=== PATIENT | male | born 1965 | race African-American/Black ===

== ENCOUNTER 2020-06-17 17:20 | Inpatient (IN) | payer MEDICARE ==
--- NOTE | 2020-06-17 18:35 | RAD ---
FRONTAL RADIOGRAPH CHEST: 06/17/20 COMPARISON: 01/08/16. HISTORY: Altered mental status. FINDINGS: Stable prominence of the cardiac silhouette. Stable single lead transvenous AICD. Mild pulmonary vasc ular prominence. No focal consolidation or alveolar edema. IMPRESSION: No focal consolidation or alveolar edema. POS: CHRISTIAN
[2020-06-17 18:50] LABS: Bilirubin Negative (Negative); Blood, Urine Negative (Negative); Clarity Clear (Clear); Glucose, Urine (Dipstick) Greater than 1000 mg/dL (Negative); Ketone, Urine Negative (Negative); Leukocyte Negative Leu/uL (Negative); Nitrite Negative (Negative); Protein, Urine (Dipstick) 10 mg/dL (Neg-Trace); Specific Gravity, Urine 1.014 (1.002-1.036); Urobilinogen Normal mg/dL (Less than 2)
[2020-06-17 19:46] LABS: #Lymphocytes 0.9 thou/uL (1.20-3.40); #Monocytes 0.6 thou/uL (0.11-0.59); #Neutrophils 5.1 thou/uL (1.40-6.50); %Basophils 0.6 % (0.0-1.0); %Eosinophils 0.4 % (0.0-10.0); %Lymphocytes 13.8 % (21.0-51.0); %Monocytes 8.5 % (0.0-10.0); %Neutrophils 76.8 % (42.0-75.0); Hemoglobin 11.2 g/dL (14.0-18.0); Mean Corpuscular HGB CONC 31.1 g/dL (32.0-36.0); Mean Corpuscular Hemoglobin 26.7 pg (27.0-31.0); Mean Corpuscular Volume 85.9 fL (78.0-98.0); Platelet Count 150 thou/uL (130-400); RBC Distribution Width 14.3 % (11.5-14.5); Red Blood Cell (RBC) Count 4.22 mill/uL (4.70-6.10); White Blood Cell (WBC) Count 6.7 thou/uL (4.8-10.8)
[2020-06-17 20:06] LABS: ALT (SGPT) 16 U/L (8-55); AST (SGOT) 26 U/L (5-34); Albumin 3.6 g/dL (3.5-5.0); Alkaline Phosphatase 89 U/L (40-110); Anion Gap 18 mmol/L (10-20); BUN (Urea Nitrogen) 46 mg/dL (8.4-25.7); Bilirubin, Total 0.3 mg/dL (0.2-1.2); Calc. Creatinine Clearance 0 mL/min (70-130); Calcium 7.3 mg/dL (7.8-10.44); Carbon Dioxide 20 mmol/L (22-29); Chloride 101 mmol/L (98-107); Globulin 3.9 g/dL (2.4-3.5); Glucose 351 mg/dL (70-105); Potassium 3.7 mmol/L (3.5-5.1); Protein, Total 7.5 g/dL (6.0-8.3); Sodium 135 mmol/L (136-145)
--- NOTE | 2020-06-17 20:27 | CT ---
HEAD CT WITHOUT CONTRAST: 06/17/20 COMPARISON: None. HISTORY: Urinary retention and altered mental status. TECHNIQUE: Axial CT imaging at 5 mm intervals from vertex through skull base without contrast. FINDINGS: The visualized paranasal sinuses and mastoid air cells are well aerated. There is no displaced nupur rial fracture, intracranial hemorrhage, midline shift or mass effect. No ventricular enlargement. IMPRESSION: No acute findings. POS: CHRISTIAN
[2020-06-17] MEDS ORDERED: Ondansetron ODT 4 MG TAB PO PRN (21:58)
[2020-06-17] MEDS ORDERED: Calcium Carbonate 500 MG ChewTAB PO PRN (21:58)
[2020-06-17] MEDS ORDERED: Ondansetron PF 4 MG/2 ML Vial IVP PRN (21:58)
--- NOTE | 2020-06-17 22:14 | PDOC.HHP ---
Hospitalist HPI - History of Present Illness unable to void History of Present Illness: Case of an 55y/o male with a pmhx of cad, chf s/p aicd, hx of DM, blidness hld, and htn who comes to hospital due to urinary retention. patient is a very poor historian and family members were not present at the moment of my evaluation, patient states has some memories issues and is not sure why he was diego to the hospital. EMR records showed, apparently patient has been having episodes of altered mental state and has been having urinary retention for the past several months worse in the last few weeks. He denies any pain he denies any nausea or vomiting he is alert and oriented x4. He denies any body aches or chills but he does have a fever here of 102.5. AT the ED patient was evaluated and found on renal failure, a barrios cath was placed and 1.6L of urine were optain, his abdominal pain improved Hospitalist ROS - Review of Systems All other systems reviewed; all pertinent +/- noted in HPI/Subj Hospitalist History - Past Surgical History Other Surgical History: laser surgery L eye aicd placement - Family History Family History: reports: no pertinent history - Social History Smoking Status: Never smoker Alcohol: reports: None Drugs: reports: none Living Situation: With Family - Exam General Appearance: NAD, ill appearing Eye: PERRL, anicteric sclera ENT: normocephalic atraumatic, no oropharyngeal lesions Neck: supple, symmetric, no JVD Heart: RRR, no murmur, no gallops Respiratory: CTAB, no wheezes, no rales Gastrointestinal: soft, non-tender, non-distended Extremities: no cyanosis, no clubbing, no edema Skin: normal turgor, no lesions, no rashes Neurological: cranial nerve grossly intact, normal sensation to touch Musculoskeletal: normal tone, normal strength, no muscle wasting Psychiatric: normal affect, normal behavior Hospitalist Results - Labs Result Diagrams: 06/17/20 19:32 06/17/20 19:32 Lab results: WBC 6.7 thou/uL (4.8-10.8) 06/17/20 19:32 Hgb 11.2 g/dL (14.0-18.0) L 06/17/20 19:32 Hct 36.2 % (42.0-52.0) L 06/17/20 19:32 MCV 85.9 fL (78.0-98.0) 06/17/20 19:32 Plt Count 150 thou/uL (130-400) 06/17/20 19:32 Neutrophils % 76.8 % (42.0-75.0) H 06/17/20 19:32 Sodium 135 mmol/L (136-145) L 06/17/20 19:32 Potassium 3.7 mmol/L (3.5-5.1) 06/17/20 19:32 Chloride 101 mmol/L (98-107) 06/17/20 19:32 Carbon Dioxide 20 mmol/L (22-29) L 06/17/20 19:32 BUN 46 mg/dL (8.4-25.7) H 06/17/20 19:32 Creatinine 2.56 mg/dL (0.7-1.3) H 06/17/20 19:32 Glucose 351 mg/dL (70-105) H 06/17/20 19:32 Lactic Acid 1.2 mmol/L (0.5-2.2) 06/17/20 19:32 Calcium 7.3 mg/dL (7.8-10.44) L 06/17/20 19:32 Total Bilirubin 0.3 mg/dL (0.2-1.2) 06/17/20 19:32 AST 26 U/L (5-34) 06/17/20 19:32 ALT 16 U/L (8-55) 06/17/20 19:32 Alkaline Phosphatase 89 U/L (40-110) 06/17/20 19:32 Ammonia 19 umol/L (18-72) 06/17/20 19:29 Serum Total Protein 7.5 g/dL (6.0-8.3) 06/17/20 19:32 Albumin 3.6 g/dL (3.5-5.0) 06/17/20 19:32 Urine Ketones Negative mg/dL (Negative) 06/17/20 18:24 Urine Blood Negative (Negative) 06/17/20 18:24 Urine Nitrite Negative (Negative) 06/17/20 18:24 Ur Leukocyte Esterase Negative Tasia/uL (Negative) 06/17/20 18:24 Hospitalist H&P A/P - Problem (1) Renal failure Status: Acute (2) Hypertension Code(s): I10 - ESSENTIAL (PRIMARY) HYPERTENSION Status: Chronic (3) Obstructive uropathy Code(s): N13.9 - OBSTRUCTIVE AND REFLUX UROPATHY, UNSPECIFIED Status: Acute (4) HLD (hyperlipidemia) Code(s): E78.5 - HYPERLIPIDEMIA, UNSPECIFIED Status: Acute (5) Blind in both eyes Code(s): H54.0 - BLINDNESS, BOTH EYES * DO NOT USE * Status: Chronic (6) Diabetes mellitus type 2 in nonobese Code(s): E11.9 - TYPE 2 DIABETES MELLITUS WITHOUT COMPLICATIONS Status: Chronic (7) Fever Code(s): R50.9 - FEVER, UNSPECIFIED Status: Acute - Plan Plan: Case of an 55y/o male with the stated pmhx who presents with renal failure and f ever renal failure - likely secondary to obstructive uropathy - barrios was placed, 1.6L were removed - nephrology evaluation - urology consult - renal u/s - will start flomax - ivfs, f/u renal function fever - unclear etiology - u/a clean, cxr clean no leukocytosis - will test for covid 19 + flu - f/u blood cultures dm -long acting insuling hs - ss+acc htn / hld continue home meds
[2020-06-17] MEDS ORDERED: Dextrose 5% in Water 1,000 ML IV PRN (22:19)
[2020-06-18 00:46] LABS: SARS-CoV-2 NAA Rapid Test DETECTED (NotDetected)
[2020-06-18] MEDS: Sodium Chloride 0.9% 1,000 ML IV SCH ×3 (02:00→23:00)
[2020-06-18] MEDS: Acetaminophen 325 MG TAB PO PRN ×2 (02:00→16:17)
[2020-06-18 06:57] LABS: ALT (SGPT) 15 U/L (8-55); AST (SGOT) 28 U/L (5-34); Albumin 3.2 g/dL (3.5-5.0); Alkaline Phosphatase 80 U/L (40-110); Anion Gap 18 mmol/L (10-20); BUN (Urea Nitrogen) 43 mg/dL (8.4-25.7); Bilirubin, Total 0.3 mg/dL (0.2-1.2); Calc. Creatinine Clearance 44 mL/min (70-130); Calcium 6.9 mg/dL (7.8-10.44); Carbon Dioxide 17 mmol/L (22-29); Chloride 105 mmol/L (98-107); Globulin 3.6 g/dL (2.4-3.5); Glucose 209 mg/dL (70-105); Potassium 3.4 mmol/L (3.5-5.1); Protein, Total 6.8 g/dL (6.0-8.3); Sodium 137 mmol/L (136-145)
[2020-06-18 07:08] LABS: Band 15 % (5-11); Hemoglobin 10.5 g/dL (14.0-18.0); Hypochromia SLIGHT = 6-15 cells (100X) (0-5/hpf); Lymphocytes 10 % (21-51); MDiff Complete? YES; Mean Corpuscular HGB CONC 30.6 g/dL (32.0-36.0); Mean Corpuscular Hemoglobin 26.3 pg (27.0-31.0); Mean Platelet Volume 9.9 fL (7.4-10.4); Monocytes 10 % (0-10); Neutrophil 65 % (42-75); Platelet Count 142 thou/uL (130-400); Platelet Morphology Comment Appears Adequate; RBC Distribution Width 14.2 % (11.5-14.5); Red Blood Cell (RBC) Count 3.99 mill/uL (4.70-6.10); White Blood Cell (WBC) Count 6.7 thou/uL (4.8-10.8)
[2020-06-18] MEDS: Enoxaparin Sodium 30 MG/0.3 ML SYRINGE SC SCH (08:27)
[2020-06-18] MEDS: Atorvastatin Calcium 20 MG TAB PO SCH (08:28)
--- NOTE | 2020-06-18 08:38 | ULT ---
Renal sonogram HISTORY: Renal failure. FINDINGS: The right kidney is 10.7 cm length and the left 11.0 cm. Each has a normal sonographic appe arance. No hydronephrosis. Urinary bladder is decompressed. IMPRESSION : No abnormalities.
[2020-06-18] MEDS ORDERED: Gabapentin 300 MG CAP PO SCH ×2 (09:00→15:00)
--- NOTE | 2020-06-18 12:04 | PDOC.HOSPP ---
- Subjective Encounter Date: 06/18/20 Encounter Time: 12:00 Subjective: f/u WILMAR/obstructive uropathy s/p Castillo catheter placement. States no BM in several days. Overall feels ok. Some productive cough. - Objective Vital Signs & Weight: Vital Signs (12 hours) Temp Pulse Resp BP Pulse Ox 06/18/20 08:50 100.6 F H 74 16 111/69 100 06/18/20 04:00 101.1 F H 99 20 106/67 95 06/18/20 02:25 103.1 F H 105 H 20 133/66 100 06/18/20 02:00 103.1 F H Weight Weight 188 lb 6.632 oz I&O: 06/17/20 06/18/20 06/19/20 06:59 06:59 06:59 Intake Total 240 Balance 240 Result Diagrams: 06/18/20 05:57 06/18/20 05:57 Additional Labs: Accuchecks 06/18/20 06/18/20 11:43 03:53 POC Glucose 170 H 217 H Microbiology 06/17/20 19:42 Venous blood - Right Hand Blood Culture - Preliminary Specimen has been received and culture in progress. No Growth to date. 06/17/20 19:30 Venous blood - Left Hand Blood Culture - Preliminary Specimen has been received and culture in progress. No Growth to date. Laboratory Tests 06/17/20 06/17/20 06/17/20 19:29 19:32 19:32 Hgb Neutrophils % Neutrophils % (Manual) Band Neuts % (Manual) Sodium 135 L Potassium 3.7 BUN 46 H Creatinine 2.56 H Lactic Acid 1.2 Ammonia 19 Influenza A RNA INAAT Influenza B RNA INAAT SARS-CoV-2 Rap RNA(RT-PCR) 06/17/20 06/17/20 06/18/20 19:32 23:02 05:57 Hgb 11.2 L Neutrophils % 76.8 H Neutrophils % (Manual) 65 Band Neuts % (Manual) 15 H Sodium Potassium BUN Creatinine Lactic Acid Ammonia Influenza A RNA INAAT Not Detected Influenza B RNA INAAT Not Detected SARS-CoV-2 Rap RNA(RT-PCR) DETECTED A* Radiology Reviewed by me: Yes (PCXR - no acute infiltrates) Hospitalist ROS - Medication Medications: Active Medications Generic Name Dose Route Start Last Admin Trade Name Freq PRN Reason Stop Dose Admin Acetaminophen 650 mg 06/17/20 21:58 06/18/20 02:00 Acetaminophen 325 Mg Tab PO 650 mg Q4H PRN Administration Headache/Fever/Mild Pain (1-3) Atorvastatin Calcium 20 mg 06/18/20 09:00 06/18/20 08:28 Atorvastatin Calcium 20 Mg Tab PO 20 mg DAILY RUSTY Administration Enoxaparin Sodium 30 mg 06/18/20 09:00 06/18/20 08:27 Enoxaparin Sodium 30 Mg/0.3 Ml Syringe SC 30 mg 0900 RUSTY Administration Gabapentin 600 mg 06/18/20 09:00 06/18/20 08:27 Gabapentin 300 Mg Cap PO 600 mg TID RUSTY Administration Sodium Chloride 1,000 mls @ 80 mls/hr 06/17/20 22:00 06/18/20 10:26 Normal Saline 0.9% IV 1,000 mls .[id number] RUSTY Administration - Exam General Appearance: NAD, awake alert Eye: anicteric sclera ENT: normocephalic atraumatic, no oropharyngeal lesions Neck: supple, symmetric, no JVD, no thyromegaly, no lymphadenopathy Heart: RRR, no gallops, no rubs, normal peripheral pulses Heart - other findings: S1, S2 Respiratory: CTAB, no wheezes, no rales, no ronchi, normal chest expansion, no tachypnea Gastrointestinal: soft, non-tender, non-distended, normal bowel sounds, no palpable masses Extremities: no cyanosis, no clubbing, no edema Skin: normal turgor, no lesions Neurological: no new deficit, vision deficit Musculoskeletal: normal tone, normal strength, no muscle wasting Psychiatric: normal affect, A&O x 3 Hosp A/P (1) Obstructive uropathy Code(s): N13.9 - OBSTRUCTIVE AND REFLUX UROPATHY, UNSPECIFIED Status: Acute Plan: s/p Castillo catheter insertion, continue decompression, Flomax, Urology consultation (2) Acute renal failure Status: Acute Plan: Slow improvement with bladder decompression, avoid nephrotoxic meds and limit contrast, likely secondary to #1 (3) COVID-19 Code(s): U07.1 - COVID-19 Status: Acute Plan: Continue isolation protocol, add Vit C/Zinc/Dexamethasone/Rocephin (4) Nausea & vomiting Code(s): R11.2 - NAUSEA WITH VOMITING, UNSPECIFIED Status: Acute Plan: Improved and resolving (5) Diabetes mellitus type 2 in nonobese Code(s): E11.9 - TYPE 2 DIABETES MELLITUS WITHOUT COMPLICATIONS Status: Chronic Plan: ISS, resume home insulin regimen, ADA (6) Hypertension Code(s): I10 - ESSENTIAL (PRIMARY) HYPERTENSION Status: Chronic Qualifiers: Hypertension type: essential hypertension Qualified Code(s): I10 - Essential (primary) hypertension Plan: Resume home BP regimen - Plan continue antibiotics, outreach and education social worker, incentive spirometry, DVT proph w/SCDs Continue supportive mgmt Add Rocephin 2gm IV Daily Add Vit C/Zinc Continue Lovenox Urology/Nephrology consult pending Isolation protocol Bowel regimen with Miralax/Senokot-S AM lab: BMP, CBC
[2020-06-18] MEDS ORDERED: Acetaminophen/Codeine 30-300mg Tablet PO PRN (12:13)
[2020-06-18] MEDS: cefTRIAXone\\ROCEPHIN 2 GM in Sodium Chloride 0.9% 100 ML IVPB SCH (14:49)
[2020-06-18] MEDS: Dexamethasone 4 mg/ml Vial SLOW IVP SCH (14:50)
[2020-06-18] MEDS: Gabapentin 300 MG CAP PO SCH ×2 (14:52→21:07)
[2020-06-18] MEDS ORDERED: Ascorbic Acid 500 mg Chewable Tablet PO SCH (15:00)
[2020-06-18] MEDS ORDERED: Polyethylene Glycol 3350 17 GM Packet PO SCH (15:00)
--- NOTE | 2020-06-18 15:17 | CON ---
DATE OF CONSULTATION: 06/18/2020 REASON FOR CONSULTATION: Urinary retention. CHIEF COMPLAINT: Unable to urinate. HISTORY OF PRESENT ILLNESS: This is a 55-year-old male with blindness, cardiac disease, congestive heart failure, diabetes, hypertension, who presented to the hospital on June 17, reporting that he had been having more and more difficulty over the past several months urinating to the point where he had been unable to urinate for about 24 hours. He apparently was having worsening altered mental status as well. Castillo catheter was placed with 1.6 L drained. He was noted to be in acute renal failure, creatinine 2.4. He was also febrile to 102.5 upon admission. In speaking with the patient today, he feels much better than yesterday reporting that the Castillo catheter is not bothersome. He denies suprapubic pain, flank pain, nausea, vomiting, subjective fevers. He has never been to urologist before and has never required Castillo catheter. No history of bladder infections. REVIEW OF SYSTEMS: Twelve-point review of systems negative except as mentioned in my HPI. PAST SURGICAL HISTORY: Left eye laser surgery, AICD placement. FAMILY HISTORY: Reviewed. No history of prostate cancer. SOCIAL HISTORY: Nonsmoker. No substance abuse. Lives with his family. ALLERGIES: NO KNOWN DRUG ALLERGIES. PHYSICAL EXAMINATION: VITAL SIGNS: T-max 101.1, otherwise vitals stable. Urine output has not been recorded. GENERAL: No acute distress, resting comfortably in bed. HEENT: Head; normocephalic, atraumatic. NECK: Supple. Trachea midline. LUNGS: Unlabored breathing. Symmetric chest expansion. HEART: Regular rate and rhythm. ABDOMEN: Soft, nontender, nondistended. No flank tenderness. No suprapubic tenderness. Normal exam. Castillo catheter in good position draining clear urine. EXTREMITIES: Without clubbing, cyanosis, or edema. NEUROLOGIC: Alert and oriented x3. PSYCHIATRIC: Normal mood and affect. LABORATORY DATA: Reviewed. White count 6.7. Creatinine 2.24 today, down from 2.56 yesterday. Urinalysis greater than 1000 glucose, otherwise negative for infection. Renal ultrasound, I personally reviewed his renal ultrasound which shows decompression of the bladder and no hydronephrosis. ASSESSMENT AND PLAN: Urinary retention, enlarged prostate with lower urinary tract symptoms. Agree with continuing Flomax. He will need a Castillo catheter for at least 2 weeks. I will arrange followup in my office for void trial and anatomic evaluation. Job ID: [id number]
[2020-06-18] MEDS: HumaLOG 300 UNITS/3 ML VIAL SC PRN (16:17)
[2020-06-18] MEDS ORDERED: Sotalol HCl 80 MG TAB PO SCH (21:00)
[2020-06-18] MEDS ORDERED: Non-Formulary Item 1 EACH (Amitriptyline Hcl [Elavil] 50 MG Tab) PO SCH (21:00)
[2020-06-18] MEDS: Acetaminophen 650 MG Suppository PR PRN (21:07)
[2020-06-18] MEDS: Amitriptyline HCl 25 MG TAB PO SCH (21:07)
[2020-06-18] MEDS: Sotalol HCl 80 MG TAB PO SCH (21:07)
[2020-06-18] MEDS: Tamsulosin HCl 0.4 MG CAP PO SCH (21:07)
[2020-06-18] MEDS: Senokot S 8.6-50 MG TAB PO SCH (21:07)
[2020-06-18] MEDS: Insulin Glargine 40 UNITS in Pre-Filled Syringe 1 EACH SC SCH (21:32)
[2020-06-19 06:37] LABS: #Lymphocytes 0.4 thou/uL (1.20-3.40); #Monocytes 0.4 thou/uL (0.11-0.59); #Neutrophils 4.8 thou/uL (1.40-6.50); %Basophils 0.3 % (0.0-1.0); %Lymphocytes 6.8 % (21.0-51.0); %Monocytes 6.3 % (0.0-10.0); %Neutrophils 86.7 % (42.0-75.0); Hemoglobin 11.1 g/dL (14.0-18.0); Mean Corpuscular HGB CONC 31.2 g/dL (32.0-36.0); Mean Corpuscular Hemoglobin 27.2 pg (27.0-31.0); Mean Corpuscular Volume 87.1 fL (78.0-98.0); Mean Platelet Volume 9.8 fL (7.4-10.4); Platelet Count 144 thou/uL (130-400); RBC Distribution Width 14.3 % (11.5-14.5); Red Blood Cell (RBC) Count 4.09 mill/uL (4.70-6.10); White Blood Cell (WBC) Count 5.6 thou/uL (4.8-10.8)
[2020-06-19 07:00] LABS: Anion Gap 18 mmol/L (10-20); BUN (Urea Nitrogen) 37 mg/dL (8.4-25.7); Calc. Creatinine Clearance 51 mL/min (70-130); Calcium 6.9 mg/dL (7.8-10.44); Carbon Dioxide 18 mmol/L (22-29); Chloride 105 mmol/L (98-107); Glucose 166 mg/dL (70-105); Potassium 3.9 mmol/L (3.5-5.1); Sodium 137 mmol/L (136-145)
[2020-06-19] MEDS ORDERED: Atorvastatin Calcium 20 MG TAB PO SCH (09:00)
[2020-06-19] MEDS: Ascorbic Acid 500 mg Chewable Tablet PO SCH (09:00)
[2020-06-19] MEDS: Zinc Sulfate 220 MG CAP PO SCH (09:00)
[2020-06-19] MEDS: Gabapentin 300 MG CAP PO SCH ×3 (09:00→21:15)
[2020-06-19] MEDS: Sotalol HCl 80 MG TAB PO SCH ×2 (09:00→21:15)
[2020-06-19] MEDS: Senokot S 8.6-50 MG TAB PO SCH ×2 (09:01→21:14)
[2020-06-19] MEDS: Atorvastatin Calcium 20 MG TAB PO SCH ×2 (09:01→09:02)
[2020-06-19] MEDS: Polyethylene Glycol 3350 17 GM Packet PO SCH (09:01)
[2020-06-19] MEDS: Insulin Glargine 40 UNITS in Pre-Filled Syringe 1 EACH SC SCH ×2 (09:02→21:12)
[2020-06-19] MEDS: Enoxaparin Sodium 30 MG/0.3 ML SYRINGE SC SCH (09:04)
[2020-06-19] MEDS: Sodium Chloride 0.9% 1,000 ML IV SCH (11:01)
[2020-06-19] MEDS: HumaLOG 300 UNITS/3 ML VIAL SC PRN (12:14)
[2020-06-19] MEDS: cefTRIAXone\\ROCEPHIN 2 GM in Sodium Chloride 0.9% 100 ML IVPB SCH (13:46)
[2020-06-19] MEDS: Dexamethasone 4 mg/ml Vial SLOW IVP SCH (15:42)
--- NOTE | 2020-06-19 15:45 | PDOC.HOSPP ---
- Subjective Encounter Date: 06/19/20 Encounter Time: 14:05 Subjective: f/u for COVID 19+/WILMAR due urinary obstruction tx with Castillo catheter. Overall feeling better today. - Objective Vital Signs & Weight: Vital Signs (12 hours) Temp Pulse Resp BP BP BP Pulse Ox 06/19/20 11:45 96 F L 85 16 113/75 100 06/19/20 08:15 97.4 F L 82 16 111/73 100 06/19/20 05:00 97.3 F L 83 20 106/70 100 Weight Weight 188 lb 6.632 oz I&O: 06/18/20 06/19/20 06/20/20 06:59 06:59 06:59 Intake Total 720 Output Total 1000 Balance -280 Result Diagrams: 06/19/20 06:13 06/19/20 06:13 Additional Labs: Accuchecks 06/19/20 06/18/20 06/18/20 11:46 21:15 16:07 POC Glucose 211 H 158 H 225 H Microbiology 06/17/20 19:42 Venous blood - Right Hand Blood Culture - Preliminary Specimen has been received and culture in progress. No Growth to date. 06/17/20 19:30 Venous blood - Left Hand Blood Culture - Preliminary Specimen has been received and culture in progress. No Growth to date. Laboratory Tests 06/17/20 06/17/20 06/17/20 19:29 19:32 19:32 Hgb Neutrophils % Neutrophils % (Manual) Band Neuts % (Manual) Sodium 135 L Potassium 3.7 BUN 46 H Creatinine 2.56 H Lactic Acid 1.2 Ammonia 19 Influenza A RNA INAAT Influenza B RNA INAAT SARS-CoV-2 Rap RNA(RT-PCR) 06/17/20 06/17/20 06/18/20 19:32 23:02 05:57 Hgb 11.2 L Neutrophils % 76.8 H Neutrophils % (Manual) 65 Band Neuts % (Manual) 15 H Sodium Potassium BUN Creatinine Lactic Acid Ammonia Influenza A RNA INAAT Not Detected Influenza B RNA INAAT Not Detected SARS-CoV-2 Rap RNA(RT-PCR) DETECTED A* Hospitalist ROS - Medication Medications: Active Medications Generic Name Dose Route Start Last Admin Trade Name Freq PRN Reason Stop Dose Admin Acetaminophen 650 mg 06/17/20 21:58 12/31/20 16:17 Acetaminophen 325 Mg Tab PO 650 mg Q4H PRN Administration Headache/Fever/Mild Pain (1-3) Acetaminophen 650 mg 06/17/20 21:58 06/18/20 21:07 Acetaminophen [address] 650 mg Q4H PRN Administration Headache/Fever/Mild Pain (1-3) Amitriptyline HCl 50 mg 06/18/20 21:00 06/18/20 21:07 Amitriptyline Hcl 25 Mg Tab PO 50 mg HS RUSTY Administration Ascorbic Acid 1,000 mg 06/19/20 09:00 06/19/20 09:00 Ascorbic Acid 500 Mg Chewable Tablet PO 1,000 mg DAILY RUSTY Administration Atorvastatin Calcium 20 mg 06/19/20 09:00 06/19/20 09:01 Atorvastatin Calcium 20 Mg Tab PO 20 mg DAILY RUSTY Administration Dexamethasone 8 mg 06/18/20 15:00 06/19/20 15:42 Dexamethasone 4 Mg/Ml Vial SLOW IVP 8 mg 1500 RUSTY Administration Enoxaparin Sodium 30 mg 06/18/20 09:00 06/19/20 09:04 Enoxaparin Sodium 30 Mg/0.3 Ml Syringe SC 30 mg 0900 RUSTY Administration Gabapentin 300 mg 06/18/20 15:00 06/19/20 15:41 Gabapentin 300 Mg Cap PO 300 mg TID RUSTY Administration Sodium Chloride 1,000 mls @ 80 mls/hr 06/17/20 22:00 06/19/20 11:01 Normal Saline 0.9% IV Not Given .[id number] RUSTY Insulin Glargine 40 units/ 0.4 mls @ 0 mls/hr 06/18/20 21:00 06/18/20 21:32 Miscellaneous Medication SC 0.4 mls HS RUSTY Administration Insulin Glargine 40 units/ 0.4 mls @ 0 mls/hr 06/19/20 09:00 06/19/20 09:02 Miscellaneous Medication SC 0.4 mls QAM RUSTY Administration Ceftriaxone Sodium 2 gm/ 100 mls @ 200 mls/hr 06/18/20 14:00 06/19/20 13:46 Sodium Chloride IVPB 100 mls 1400 RUSTY Administration Insulin Human Lispro 0 units 06/17/20 22:19 06/19/20 12:14 Humalog 300 Units/3 Ml Vial SC 4 unit .MODERATE SLIDING SC PRN Administration Moderate Correctional Scale Polyethylene Glycol 17 gm 06/19/20 09:00 06/19/20 09:01 Polyethylene Glycol 3350 17 Gm Packet PO 17 gm DAILY RUSTY Administration Senna/Docusate Sodium 1 tab 06/18/20 21:00 06/19/20 09:01 Senokot S 8.6-50 Mg Tab PO 1 tab BID RUSTY Administration Sodium Chloride 10 ml 06/18/20 21:00 06/19/20 09:02 Flush - Normal Saline 10 Ml Syringe IVF 10 ml Q12HR RUSTY Administration Sotalol HCl 80 mg 06/18/20 21:00 06/19/20 09:00 Sotalol Hcl 80 Mg Tab PO 80 mg BID RUSTY Administration Tamsulosin HCl 0.4 mg 06/18/20 21:00 06/18/20 21:07 Tamsulosin Hcl 0.4 Mg Cap PO 0.4 mg HS RUSTY Administration Zinc Sulfate 220 mg 06/19/20 09:00 06/19/20 09:00 Zinc Sulfate 220 Mg Cap PO 220 mg DAILY RUSTY Administration - Exam General Appearance: NAD, awake alert Eye: anicteric sclera ENT: normocephalic atraumatic, no oropharyngeal lesions Neck: supple, symmetric, no JVD, no thyromegaly, no lymphadenopathy Heart: RRR, no gallops, no rubs, normal peripheral pulses Heart - other findings: S1, S2 Respiratory: CTAB, no wheezes, no rales, no ronchi, normal chest expansion, no tachypnea Gastrointestinal: soft, non-tender, non-distended, normal bowel sounds, no palpable masses Extremities: no cyanosis, no clubbing, no edema Skin: normal turgor, no lesions Neurological: cranial nerve grossly intact, no new deficit, vision deficit Musculoskeletal: normal tone, generalized weakness Psychiatric: normal affect, A&O x 3 Hosp A/P (1) Obstructive uropathy Code(s): N13.9 - OBSTRUCTIVE AND REFLUX UROPATHY, UNSPECIFIED Status: Acute Plan: s/p Castillo catheter decompression, likely will need catheter terminal computer operator, appreciate Urology assistance (2) Acute renal failure Status: Acute Plan: Improved with Castillo decompression, continue Castillo cather (3) COVID-19 Code(s): U07.1 - COVID-19 Status: Acute Plan: Continue gen pulmonary support/Dexamethasone/Rocephin/Vit C/Vit D/Lovenox (4) Nausea & vomiting Code(s): R11.2 - NAUSEA WITH VOMITING, UNSPECIFIED Status: Acute (5) Diabetes mellitus type 2 in nonobese Code(s): E11.9 - TYPE 2 DIABETES MELLITUS WITHOUT COMPLICATIONS Status: Chronic (6) Hypertension Code(s): I10 - ESSENTIAL (PRIMARY) HYPERTENSION Status: Chronic Qualifiers: Hypertension type: essential hypertension Qualified Code(s): I10 - Essential (primary) hypertension - Plan continue antibiotics, PT/OT, social sciences research scientist, incentive spirometry, out of bed/ambulate, DVT proph w/SCDs Continue supportive mgmt Continue Rocephin 2gm IV Daily Add Vit C/Zinc Continue Lovenox Urology/Nephrology consult appreciated Isolation protocol Bowel regimen with Miralax/Senokot-S AM lab: BMP, CBC
--- NOTE | 2020-06-19 16:55 | PRG ---
DATE OF SERVICE: 06/19/2020 OBJECTIVE: VITAL SIGNS: The patient noted with the following vital signs; afebrile, temperature 96, pulse 85, respiratory rate of 16, O2 saturation of 100% with blood pressure 113/75. HEENT: Unremarkable. CARDIOVASCULAR SYSTEM: First and second heart sounds were heard. RESPIRATORY SYSTEM: Clear to auscultation. DIGESTIVE SYSTEM: Revealed a benign abdomen. Positive bowel sounds. EXTREMITIES: No peripheral edema. SKIN: No new gross rash. LYMPHATICS: No peripheral lymphadenopathy. LABORATORY INVESTIGATION: Showed a hemoglobin of 11.1. Chemistry showed a creatinine down to 1.93 with BUN of 37, bicarb of 18, calcium of 6.9, with albumin of 3.2. IMPRESSION: 1. Acute kidney injury, seems to be improving. 2. Metabolic acidosis, partly due to the use of acetazolamide for glaucoma. 3. Hypocalcemia, query cause. 4. COVID infection. PLAN: 1. Discontinue current IV fluid. 2. Renally dose all medications and avoid potentially nephrotoxic agents. 3. Start this patient on vitamin D with calcium supplementation. 4. In order to be objective, we will go ahead and check the vitamin D level in this patient. 5. Further management will be dependent on the clinical course. Job ID: [id number]
[2020-06-19] MEDS ORDERED: AcetaZOLAMIDE 250 MG TAB PO SCH (17:00)
[2020-06-19] MEDS: Amitriptyline HCl 25 MG TAB PO SCH (21:12)
[2020-06-19] MEDS: Tamsulosin HCl 0.4 MG CAP PO SCH (21:12)
[2020-06-19] MEDS: Calcium Carbonate 500 MG ChewTAB PO SCH (21:15)
[2020-06-19] MEDS: AcetaZOLAMIDE 250 MG TAB PO SCH (21:16)
[2020-06-20 06:49] LABS: Anion Gap 16 mmol/L (10-20); BUN (Urea Nitrogen) 33 mg/dL (8.4-25.7); CRP (Inflammatory) 19.01 mg/dL (= or < 0.5); Calc. Creatinine Clearance 65 mL/min (70-130); Calcium 6.8 mg/dL (7.8-10.44); Carbon Dioxide 19 mmol/L (22-29); Chloride 108 mmol/L (98-107); Potassium 3.8 mmol/L (3.5-5.1); Sodium 139 mmol/L (136-145)
[2020-06-20 06:55] LABS: Glucose 52 mg/dL (70-105)
[2020-06-20] MEDS: Gabapentin 300 MG CAP PO SCH ×3 (09:31→21:39)
[2020-06-20] MEDS: Acetaminophen 325 MG TAB PO PRN (09:31)
[2020-06-20] MEDS: Zinc Sulfate 220 MG CAP PO SCH (09:32)
[2020-06-20] MEDS: Ascorbic Acid 500 mg Chewable Tablet PO SCH (09:32)
[2020-06-20] MEDS: Sotalol HCl 80 MG TAB PO SCH ×2 (09:32→21:40)
[2020-06-20] MEDS: Atorvastatin Calcium 20 MG TAB PO SCH (09:32)
[2020-06-20] MEDS: Calcium Carbonate 500 MG ChewTAB PO SCH ×2 (09:32→21:40)
[2020-06-20] MEDS: AcetaZOLAMIDE 250 MG TAB PO SCH ×4 (09:32→21:39)
[2020-06-20] MEDS: Senokot S 8.6-50 MG TAB PO SCH ×2 (09:33→21:40)
[2020-06-20] MEDS: Enoxaparin Sodium 30 MG/0.3 ML SYRINGE SC SCH (09:33)
[2020-06-20] MEDS: Polyethylene Glycol 3350 17 GM Packet PO SCH (09:33)
[2020-06-20] MEDS: Dextrose 50% Abboject 50 ML SYRINGE SLOW IVP PRN ×2 (12:24→17:28)
[2020-06-20] MEDS ORDERED: Acetaminophen 500 MG TAB PO SCH (12:45)
[2020-06-20] MEDS: cefTRIAXone\\ROCEPHIN 2 GM in Sodium Chloride 0.9% 100 ML IVPB SCH (13:12)
[2020-06-20] MEDS ORDERED: guaiFENesin ER 600 MG TAB PO SCH (14:30)
[2020-06-20] MEDS: Insulin Glargine 40 UNITS in Pre-Filled Syringe 1 EACH SC SCH (14:55)
[2020-06-20] MEDS: Dexamethasone 4 mg/ml Vial SLOW IVP SCH (15:12)
--- NOTE | 2020-06-20 17:15 | PDOC.HOSPP ---
- Subjective Subjective: Patient was seen examined at bedside. He is sitting up eating lunch. He had an episode of hypoglycemic with blood sugar of 52. Recheck it went up to 89. Renal function has improved, creatinines went down to 1.25. Patient also had a fevers of 101 today. - Objective Vital Signs & Weight: Vital Signs (12 hours) Temp Pulse Resp BP Pulse Ox 06/20/20 14:00 98.9 F 06/20/20 12:00 101.4 F H 06/20/20 08:00 92 L 06/20/20 07:48 101.2 F H 100 22 H 115/69 92 L Weight Weight 188 lb 6.632 oz I&O: 06/19/20 06/20/20 06/21/20 06:59 06:59 06:59 Intake Total 720 2100 200 Output Total 1000 1850 Balance -280 250 200 Result Diagrams: 06/19/20 06:13 06/20/20 05:51 Additional Labs: Accuchecks 06/20/20 06/20/20 06/19/20 13:22 06:22 21:03 POC Glucose 91 89 132 H Hospitalist ROS - Medication Medications: Active Medications Generic Name Dose Route Start Last Admin Trade Name Freq PRN Reason Stop Dose Admin Acetaminophen 650 mg 06/17/20 21:58 06/20/20 09:31 Acetaminophen 325 Mg Tab PO 650 mg Q4H PRN Administration Headache/Fever/Mild Pain (1-3) Acetaminophen 650 mg 06/17/20 21:58 06/18/20 21:07 Acetaminophen 650 Mg Suppository [place] 650 mg Q4H PRN Administration Headache/Fever/Mild Pain (1-3) Acetaminophen/Codeine Phosphate 1 tab 06/18/20 12:13 06/19/20 18:28 Acetaminophen/Codeine 30-300mg Tablet PO 1 tab BID PRN Administration Pain Acetazolamide 250 mg 06/19/20 21:00 06/20/20 13:16 Acetazolamide 250 Mg Tab PO 250 mg QID RUSTY Administration Amitriptyline HCl 50 mg 06/18/20 21:00 06/19/20 21:12 Amitriptyline Hcl 25 Mg Tab PO 50 mg HS RUSTY Administration Ascorbic Acid 1,000 mg 06/19/20 09:00 06/20/20 09:32 Ascorbic Acid 500 Mg Chewable Tablet PO 1,000 mg DAILY RUSTY Administration Atorvastatin Calcium 20 mg 06/19/20 09:00 06/20/20 09:32 Atorvastatin Calcium 20 Mg Tab PO 20 mg DAILY RUSTY Administration Calcium Carbonate 1,000 mg 06/19/20 21:00 06/20/20 09:32 Calcium Carbonate 500 Mg Chewtab PO 1,000 mg BID RUSTY Administration Dexamethasone 8 mg 06/18/20 15:00 06/20/20 15:12 Dexamethasone 4 Mg/Ml Vial SLOW IVP 8 mg 1500 RUSTY Administration Dextrose/Water 25 gm 06/17/20 22:19 06/20/20 12:24 Dextrose 50% Abboject 50 Ml Syringe SLOW IVP 25 gm PRN PRN Administration Hypoglycemia Enoxaparin Sodium 30 mg 06/18/20 09:00 06/20/20 09:33 Enoxaparin Sodium 30 Mg/0.3 Ml Syringe SC 30 mg 0900 RUSTY Administration Gabapentin 300 mg 06/18/20 15:00 06/20/20 15:12 Gabapentin 300 Mg Cap PO 300 mg TID RUSTY Administration Insulin Glargine 40 units/ 0.4 mls @ 0 mls/hr 06/18/20 21:00 06/19/20 21:12 Miscellaneous Medication SC 0.4 mls HS RUSTY Administration Insulin Glargine 40 units/ 0.4 mls @ 0 mls/hr 06/19/20 09:00 06/20/20 14:55 Miscellaneous Medication SC Not Given QAM RUSTY Ceftriaxone Sodium 2 gm/ 100 mls @ 200 mls/hr 06/18/20 14:00 06/20/20 13:12 Sodium Chloride IVPB 100 mls 1400 RUSTY Administration Insulin Human Lispro 0 units 06/17/20 22:19 06/19/20 12:14 Humalog 300 Units/3 Ml Vial SC 4 unit .MODERATE SLIDING SC PRN Administration Moderate Correctional Scale Polyethylene Glycol 17 gm 06/19/20 09:00 06/20/20 09:33 Polyethylene Glycol 3350 17 Gm Packet PO 17 gm DAILY RUSTY Administration Senna/Docusate Sodium 1 tab 06/18/20 21:00 06/20/20 09:33 Senokot S 8.6-50 Mg Tab PO 1 tab BID RUSTY Administration Sodium Chloride 10 ml 06/18/20 21:00 06/20/20 09:34 Flush - Normal Saline 10 Ml Syringe IVF 10 ml Q12HR RUSTY Administration Sotalol HCl 80 mg 06/18/20 21:00 06/20/20 09:32 Sotalol Hcl 80 Mg Tab PO 80 mg BID RUSTY Administration Tamsulosin HCl 0.4 mg 06/18/20 21:00 06/19/20 21:12 Tamsulosin Hcl 0.4 Mg Cap PO 0.4 mg HS RUSTY Administration Zinc Sulfate 220 mg 06/19/20 09:00 06/20/20 09:32 Zinc Sulfate 220 Mg Cap PO 220 mg DAILY RUSTY Administration - Exam General Appearance: NAD Eye: PERRL ENT: normocephalic atraumatic Neck: supple Heart: RRR Respiratory: rhonchi Gastrointestinal: soft Extremities: no cyanosis Skin: normal turgor Neurological: cranial nerve grossly intact Musculoskeletal: normal tone Hosp A/P - Plan Patient is a 55 years old -[place] gentleman who has significant past medical history of CAD, CHF with status post AICD, diabetes complicated with legally blind, dyslipidemia, hypertension, who presented to ED with urinary retention, and fever. Acute hypoxic respiratory failures due to COVID-19 pneumonia --Continue Decadron, Vit C/D/Zince. Wean O2 as gordo. Not a candidate for Remdesivir d/t renal function COVID-19 PNA --mgt as above. WILMAR d/t obstructive uropathy --s/p Barrios placement. Cr trending down. Appreciate urology/nephrology Obstructive uropathy d/t BPH --keep barrios in place for 2 weeks, follow up with urology --cont Flomax DM 2 --with hypoglycemia in setting of WILMAR --hold Lantus, cont ISS for now HTN, essential --BP stable. Losartan on hold d/t renal function Dyslipidemia --cont statin therapy
--- NOTE | 2020-06-20 19:59 | PRG ---
DATE OF SERVICE: 06/20/2020 OBJECTIVE: VITAL SIGNS: The patient noted to be spiking fever today with temperature 101.4, pulse of 90s to 100, respiratory rate 22, blood pressure 116/69. HEENT: Unremarkable. CARDIOVASCULAR SYSTEM: First and second heart sounds were heard. RESPIRATORY SYSTEM: Clear to auscultation. DIGESTIVE SYSTEM: Revealed a benign abdomen. EXTREMITIES: No peripheral edema. SKIN: No new gross rash. LYMPHATICS: No peripheral lymphadenopathy. IMPRESSION: 1. Acute kidney injury, which seems to be improving more or less back to baseline. 2. Metabolic acidosis, much improved. 3. Hypocalcemia, query cause. 4. COVID infection. PLAN: 1. Continue current renal supportive measures. 2. Renally dose all medications. 3. Further management to be dependent on the clinical course. Job ID: [id number]
[2020-06-20] MEDS: guaiFENesin ER 600 MG TAB PO SCH (21:40)
[2020-06-20] MEDS: Amitriptyline HCl 25 MG TAB PO SCH (21:40)
[2020-06-20] MEDS: Tamsulosin HCl 0.4 MG CAP PO SCH (21:40)
[2020-06-21] MEDS: HumaLOG 300 UNITS/3 ML VIAL SC PRN (05:28)
[2020-06-21 07:20] LABS: #Lymphocytes 0.5 thou/uL (1.20-3.40); #Monocytes 0.4 thou/uL (0.11-0.59); #Neutrophils 6.7 thou/uL (1.40-6.50); %Monocytes 5.8 % (0.0-10.0); %Neutrophils 88.1 % (42.0-75.0); Hemoglobin 10.9 g/dL (14.0-18.0); Mean Corpuscular HGB CONC 30.9 g/dL (32.0-36.0); Mean Corpuscular Hemoglobin 26.6 pg (27.0-31.0); Mean Corpuscular Volume 85.9 fL (78.0-98.0); Mean Platelet Volume 9.9 fL (7.4-10.4); Platelet Count 187 thou/uL (130-400); RBC Distribution Width 14.6 % (11.5-14.5); White Blood Cell (WBC) Count 7.6 thou/uL (4.8-10.8)
[2020-06-21 07:30] LABS: Anion Gap 14 mmol/L (10-20); BUN (Urea Nitrogen) 36 mg/dL (8.4-25.7); CRP (Inflammatory) 23.85 mg/dL (= or < 0.5); Calc. Creatinine Clearance 65 mL/min (70-130); Calcium 6.8 mg/dL (7.8-10.44); Carbon Dioxide 18 mmol/L (22-29); Chloride 108 mmol/L (98-107); Potassium 3.4 mmol/L (3.5-5.1); Sodium 137 mmol/L (136-145)
[2020-06-21 07:40] LABS: Glucose 43 mg/dL (70-105)
[2020-06-21] MEDS: Dextrose 5 % And 0.9 % NaCl 1,000 ML IV SCH ×2 (08:10→21:51)
[2020-06-21] MEDS: Dextrose 50% Abboject 50 ML SYRINGE SLOW IVP PRN (08:10)
[2020-06-21] MEDS: Gabapentin 300 MG CAP PO SCH ×3 (09:52→21:49)
[2020-06-21] MEDS: Senokot S 8.6-50 MG TAB PO SCH ×2 (09:53→21:48)
[2020-06-21] MEDS: Calcium Carbonate 500 MG ChewTAB PO SCH ×2 (09:53→21:49)
[2020-06-21] MEDS: guaiFENesin ER 600 MG TAB PO SCH ×2 (09:53→21:50)
[2020-06-21] MEDS: Zinc Sulfate 220 MG CAP PO SCH (09:53)
[2020-06-21] MEDS: Ascorbic Acid 500 mg Chewable Tablet PO SCH (09:53)
[2020-06-21] MEDS: Atorvastatin Calcium 20 MG TAB PO SCH (09:53)
[2020-06-21] MEDS: Sotalol HCl 80 MG TAB PO SCH ×2 (09:53→21:47)
[2020-06-21] MEDS: AcetaZOLAMIDE 250 MG TAB PO SCH ×4 (09:53→21:47)
[2020-06-21] MEDS: Enoxaparin Sodium 30 MG/0.3 ML SYRINGE SC SCH (09:54)
[2020-06-21] MEDS: Polyethylene Glycol 3350 17 GM Packet PO SCH (09:54)
[2020-06-21 12:02] LABS: Base Excess (BEa) -5.7 mEq/L (-2.0 to +3.0); CO2 Tension 34.5 mmHg (35.0-45.0); Calcium, Ionized (arterial) 0.94 mmol/L (1.12-1.30); Carboxyhemoglobin (COHb) 0.7 gm% (0.0-3.0); Hemoglobin (Hb) 12.3 g/dL (14.0-18.0); pH, Arterial 7.36 (7.35-7.45)
[2020-06-21 12:07] LABS: O2 Tension (PaO2), arterial 56.4 mmHg (80.0-100.0); Puncture Site RRA
[2020-06-21 12:08] LABS: ALV-art Gradient 613.475 mmHg (0-20)
[2020-06-21] MEDS: cefTRIAXone\\ROCEPHIN 2 GM in Sodium Chloride 0.9% 100 ML IVPB SCH (14:02)
[2020-06-21] MEDS: Dexamethasone 4 mg/ml Vial SLOW IVP SCH ×2 (15:58→21:51)
--- NOTE | 2020-06-21 16:54 | PDOC.HOSPP ---
- Subjective Subjective: Patient was seen examined at bedside. Patient is getting more hypoxic today despite that he is asymptomatic. Additionally, he is still having hypoglycemia. He was started on D5. Patient has not been eating much. ABG reviewed - Objective Vital Signs & Weight: Vital Signs (12 hours) Temp Pulse Resp BP Pulse Ox 06/21/20 14:00 112 H 91 L 06/21/20 12:00 93 L 06/21/20 08:22 98.0 F 84 18 112/73 94 L 06/21/20 08:00 94 L Weight Weight 188 lb 6.632 oz I&O: 06/20/20 06/21/20 06/22/20 06:59 06:59 06:59 Intake Total 2100 770 200 Output Total 1850 800 Balance 250 -30 200 Result Diagrams: 06/21/20 06:59 06/21/20 06:59 Additional Labs: Accuchecks 06/21/20 06/21/20 06/21/20 16:00 11:26 09:12 POC Glucose 97 95 99 06/21/20 05:27 POC Glucose 211 H Hospitalist ROS - Medication Medications: Active Medications Generic Name Dose Route Start Last Admin Trade Name Freq PRN Reason Stop Dose Admin Acetaminophen 650 mg 06/17/20 21:58 06/20/20 09:31 Acetaminophen 325 Mg Tab PO 650 mg Q4H PRN Administration Headache/Fever/Mild Pain (1-3) Acetaminophen 650 mg 06/17/20 21:58 06/18/20 21:07 Acetaminophen 650 Mg Suppository [place] 650 mg Q4H PRN Administration Headache/Fever/Mild Pain (1-3) Acetaminophen/Codeine Phosphate 1 tab 06/18/20 12:13 06/19/20 18:28 Acetaminophen/Codeine 30-300mg Tablet PO 1 tab BID PRN Administration Pain Acetazolamide 250 mg 06/19/20 21:00 06/21/20 12:56 Acetazolamide 250 Mg Tab PO 250 mg QID RUSTY Administration Amitriptyline HCl 50 mg 06/18/20 21:00 06/20/20 21:40 Amitriptyline Hcl 25 Mg Tab PO 50 mg HS RUSTY Administration Ascorbic Acid 1,000 mg 06/19/20 09:00 06/21/20 09:53 Ascorbic Acid 500 Mg Chewable Tablet PO 1,000 mg DAILY RUSTY Administration Atorvastatin Calcium 20 mg 06/19/20 09:00 06/21/20 09:53 Atorvastatin Calcium 20 Mg Tab PO 20 mg DAILY RUSTY Administration Calcium Carbonate 1,000 mg 06/19/20 21:00 06/21/20 09:53 Calcium Carbonate 500 Mg Chewtab PO 1,000 mg BID RUSTY Administration Dexamethasone 8 mg 06/18/20 15:00 06/21/20 15:58 Dexamethasone 4 Mg/Ml Vial SLOW IVP 8 mg 1500 RUSTY Administration Dextrose/Water 25 gm 06/17/20 22:19 06/21/20 08:10 Dextrose 50% Abboject 50 Ml Syringe SLOW IVP 25 gm PRN PRN Administration Hypoglycemia Enoxaparin Sodium 30 mg 06/18/20 09:00 06/21/20 09:54 Enoxaparin Sodium 30 Mg/0.3 Ml Syringe SC 30 mg 0900 RUSTY Administration Gabapentin 300 mg 06/18/20 15:00 06/21/20 15:57 Gabapentin 300 Mg Cap PO 300 mg TID RUSTY Administration Guaifenesin 600 mg 06/20/20 21:00 06/21/20 09:53 Guaifenesin Er 600 Mg Tab PO 600 mg Q12HR RUSTY Administration Insulin Glargine 40 units/ 0.4 mls @ 0 mls/hr 06/18/20 21:00 06/19/20 21:12 Miscellaneous Medication SC 0.4 mls HS RUSTY Administration Insulin Glargine 40 units/ 0.4 mls @ 0 mls/hr 06/19/20 09:00 06/20/20 14:55 Miscellaneous Medication SC Not Given QAM RUSTY Ceftriaxone Sodium 2 gm/ 100 mls @ 200 mls/hr 06/18/20 14:00 06/21/20 14:02 Sodium Chloride IVPB 100 mls 1400 RUSTY Administration Dextrose/Sodium Chloride 1,000 mls @ 75 mls/hr 06/21/20 08:00 06/21/20 08:10 D5 0.9% Ns IV 1,000 mls .[id number] RUSTY Administration Insulin Human Lispro 0 units 06/17/20 22:19 06/21/20 05:28 Humalog 300 Units/3 Ml Vial SC 4 unit .MODERATE SLIDING SC PRN Administration Moderate Correctional Scale Polyethylene Glycol 17 gm 06/19/20 09:00 06/21/20 09:54 Polyethylene Glycol 3350 17 Gm Packet PO Not Given DAILY RUSTY Senna/Docusate Sodium 1 tab 06/18/20 21:00 06/21/20 09:53 Senokot S 8.6-50 Mg Tab PO 1 tab BID RUSTY Administration Sodium Chloride 10 ml 06/18/20 21:00 06/21/20 09:54 Flush - Normal Saline 10 Ml Syringe IVF 10 ml Q12HR RUSTY Administration Sotalol HCl 80 mg 06/18/20 21:00 06/21/20 09:53 Sotalol Hcl 80 Mg Tab PO 80 mg BID RUSTY Administration Tamsulosin HCl 0.4 mg 06/18/20 21:00 06/20/20 21:40 Tamsulosin Hcl 0.4 Mg Cap PO 0.4 mg HS RUSTY Administration Zinc Sulfate 220 mg 06/19/20 09:00 06/21/20 09:53 Zinc Sulfate 220 Mg Cap PO 220 mg DAILY RUSTY Administration - Exam General Appearance: NAD Eye: PERRL ENT: normocephalic atraumatic Neck: supple Heart: RRR Respiratory: rhonchi Gastrointestinal: soft, non-tender Extremities: no cyanosis Skin: normal turgor Neurological: cranial nerve grossly intact Musculoskeletal: normal tone Psychiatric: normal affect, normal behavior, A&O x 3 Hosp A/P - Plan Patient is a 55 years old -[place] gentleman who has significant past medical history of CAD, CHF with status post AICD, diabetes complicated with legally blind, dyslipidemia, hypertension, who presented to ED with urinary retention, and fever. Acute hypoxic respiratory failures due to COVID-19 pneumonia --CRP still quite high, incr Decadron to BID, Vit C/D/Zinc. Wean O2 as gordo. --convalescent plasma. renal function has improved, d/w ID, Ok to start remdesivir COVID-19 PNA --mgt as above. Hypoglycemia - d/t Lantus in setting of WILMAR and poor PO intake --Lantus on hold. start D5 d/t persistent hypoglycemia. WILMAR d/t obstructive uropathy --s/p Barrios placement. Cr trending down. Appreciate urology/nephrology Obstructive uropathy d/t BPH --keep barrios in place for 2 weeks, follow up with urology --cont Flomax DM 2 --with hypoglycemia in setting of WILMAR --hold Lantus, cont ISS for now HTN, essential --BP stable. Losartan on hold d/t renal function Dyslipidemia --cont statin therapy
[2020-06-21] MEDS ORDERED: REMDESIVIR (EUA) 200 MG in Sodium Chloride 0.9% 250 ML 210 ML IV SCH (18:00)
[2020-06-21] MEDS: Tamsulosin HCl 0.4 MG CAP PO SCH (21:49)
[2020-06-21] MEDS: Amitriptyline HCl 25 MG TAB PO SCH (21:50)
--- NOTE | 2020-06-21 22:12 | PRG ---
DATE OF SERVICE: 06/21/2020 SUBJECTIVE: The patient is seen, noted with the following vital signs. OBJECTIVE: VITAL SIGNS: Afebrile, temperature 98.7, pulse 84, respiratory rate of 19, O2 saturation of 93%, blood pressure 116/71. HEENT: Unremarkable. CARDIOVASCULAR SYSTEM: First and second heart sounds are heard. RESPIRATORY SYSTEM: Clear to auscultation. DIGESTIVE SYSTEM: Revealed a benign abdomen. Positive bowel sounds. EXTREMITIES: No peripheral edema. SKIN: No new gross rash. LYMPHATICS: No peripheral lymphadenopathy. LABORATORY INVESTIGATION: Showed a potassium of 3.4, bicarb of 18, BUN of 36, and creatinine of 1.52. IMPRESSION: 1. Acute on chronic kidney disease, seems to be improving . 2. Metabolic acidosis. 3. COVID pneumonitis. 4. Mild hypokalemia. PLAN: 1. Replete potassium. 2. Continue current renal supportive measures. 3. Further management to be dependent on the clinical course. We will likely recommend discontinuation of IV fluids . Job ID: [id number]
--- NOTE | 2020-06-22 03:13 | PDOC.EVN ---
Event Note - Event Note Event Note: Received call from nursing that patient refused his convalescent plasma but did take the Remdesevir this evening.
[2020-06-22 07:05] LABS: Mean Corpuscular Volume 86.6 fL (78.0-98.0); Mean Platelet Volume 9.5 fL (7.4-10.4); Platelet Count 238 thou/uL (130-400); RBC Distribution Width 14.5 % (11.5-14.5); Red Blood Cell (RBC) Count 4.23 mill/uL (4.70-6.10); White Blood Cell (WBC) Count 7.8 thou/uL (4.8-10.8)
[2020-06-22 07:22] LABS: ALT (SGPT) 22 U/L (8-55); AST (SGOT) 71 U/L (5-34); Albumin 2.8 g/dL (3.5-5.0); Alkaline Phosphatase 98 U/L (40-110); Anion Gap 15 mmol/L (10-20); BUN (Urea Nitrogen) 31 mg/dL (8.4-25.7); Bilirubin, Total 0.2 mg/dL (0.2-1.2); CRP (Inflammatory) 21.38 mg/dL (= or < 0.5); Calc. Creatinine Clearance 68 mL/min (70-130); Calcium 6.5 mg/dL (7.8-10.44); Carbon Dioxide 20 mmol/L (22-29); Chloride 110 mmol/L (98-107); Globulin 3.7 g/dL (2.4-3.5); Glucose 152 mg/dL (70-105); Potassium 3.9 mmol/L (3.5-5.1); Protein, Total 6.5 g/dL (6.0-8.3); Sodium 141 mmol/L (136-145)
--- NOTE | 2020-06-22 07:24 | RAD ---
EXAM: CHEST ONE VIEW HISTORY: Worsening respiratory failure. Covid positive. COMPARISON: 06/17/2020 FINDINGS: Single lead left subclavian AICD device remains in place. Cardiac silhouette is magnified by projecti on but stable in size. There are increased interstitial and patchy parenchymal airspace opacities within the lungs bilaterally likely compatible with Covid pneumonia given patient's history. No obvio us pleural effusion is seen. No other interval change IMPRESSION: Covid pneumonia.
[2020-06-22 07:26] LABS: #Basophils 0.1 thou/uL (0.0-0.2); #Lymphocytes 0.5 thou/uL (1.20-3.40); #Monocytes 0.4 thou/uL (0.11-0.59); #Neutrophils 6.8 thou/uL (1.40-6.50); %Basophils 0.7 % (0.0-1.0); %Eosinophils 0.1 % (0.0-10.0); %Lymphocytes 6.8 % (21.0-51.0); %Monocytes 5.1 % (0.0-10.0); %Neutrophils 87.4 % (42.0-75.0); Crenated RBC SLIGHT = 1-5 cells (100X) (None Seen); MDiff Complete? YES; Platelet Morphology Comment Appears Adequate
[2020-06-22] MEDS: Ascorbic Acid 500 mg Chewable Tablet PO SCH (08:37)
[2020-06-22] MEDS: Gabapentin 300 MG CAP PO SCH ×3 (08:38→21:45)
[2020-06-22] MEDS: Calcium Carbonate 500 MG ChewTAB PO SCH ×2 (08:38→21:45)
[2020-06-22] MEDS: Acetaminophen 325 MG TAB PO PRN (08:38)
[2020-06-22] MEDS: Zinc Sulfate 220 MG CAP PO SCH (08:39)
[2020-06-22] MEDS: Dexamethasone 4 mg/ml Vial SLOW IVP SCH ×2 (08:39→21:46)
[2020-06-22] MEDS: Senokot S 8.6-50 MG TAB PO SCH ×2 (08:39→21:45)
[2020-06-22] MEDS: Atorvastatin Calcium 20 MG TAB PO SCH (08:39)
[2020-06-22] MEDS: guaiFENesin ER 600 MG TAB PO SCH ×2 (08:39→21:45)
[2020-06-22] MEDS: Polyethylene Glycol 3350 17 GM Packet PO SCH (08:40)
[2020-06-22] MEDS: AcetaZOLAMIDE 250 MG TAB PO SCH ×4 (08:44→21:44)
[2020-06-22] MEDS: Sotalol HCl 80 MG TAB PO SCH ×2 (08:44→21:46)
[2020-06-22] MEDS: Enoxaparin Sodium 30 MG/0.3 ML SYRINGE SC SCH (08:44)
[2020-06-22] MEDS: Dextrose 5 % And 0.9 % NaCl 1,000 ML IV SCH (09:05)
[2020-06-22] MEDS: HumaLOG 300 UNITS/3 ML VIAL SC PRN ×2 (11:23→16:37)
[2020-06-22] MEDS: cefTRIAXone\\ROCEPHIN 2 GM in Sodium Chloride 0.9% 100 ML IVPB SCH (12:38)
--- NOTE | 2020-06-22 17:27 | PDOC.HOSPP ---
- Subjective Subjective: pt declined convalescent plasma. no fever. stable on high [place]. BG stable. appetite still low. - Objective Vital Signs & Weight: Vital Signs (12 hours) Temp Pulse Resp BP BP BP Pulse Ox 06/22/20 17:02 97.4 F L 83 20 108/71 95 06/22/20 11:56 97.7 F 84 20 130/83 100 06/22/20 08:44 84 06/22/20 08:00 97.8 F 84 18 142/97 H 96 Weight Weight 188 lb 6.632 oz I&O: 06/21/20 06/22/20 06/23/20 06:59 06:59 06:59 Intake Total 770 1820 Output Total 1350 800 Balance -580 1020 Result Diagrams: 06/22/20 06:13 06/22/20 06:13 Additional Labs: Accuchecks 06/22/20 06/22/20 06/22/20 15:53 10:57 05:01 POC Glucose 191 H 194 H 147 H 06/21/20 06/20/20 06/20/20 19:39 20:11 18:29 POC Glucose 108 H 203 H 146 H 06/20/20 06/20/20 06/20/20 17:17 05:50 05:20 POC Glucose 50 L* 55 L* 52 L* 06/20/20 06/19/20 04:56 05:47 POC Glucose 58 L* 154 H Radiology Reviewed by me: Yes EKG Reviewed by me: Yes Hospitalist ROS - Medication Medications: Active Medications Generic Name Dose Route Start Last Admin Trade Name Freq PRN Reason Stop Dose Admin Acetaminophen 650 mg 06/17/20 21:58 06/22/20 08:38 Acetaminophen 325 Mg Tab PO 650 mg Q4H PRN Administration Headache/Fever/Mild Pain (1-3) Acetaminophen 650 mg 06/17/20 21:58 06/18/20 21:07 Acetaminophen 650 Mg Suppository [place] 650 mg Q4H PRN Administration Headache/Fever/Mild Pain (1-3) Acetaminophen/Codeine Phosphate 1 tab 06/18/20 12:13 06/19/20 18:28 Acetaminophen/Codeine 30-300mg Tablet PO 1 tab BID PRN Administration Pain Acetazolamide 250 mg 06/19/20 21:00 06/22/20 16:36 Acetazolamide 250 Mg Tab PO 250 mg QID RUSTY Administration Amitriptyline HCl 50 mg 06/18/20 21:00 06/21/20 21:50 Amitriptyline Hcl 25 Mg Tab PO 50 mg HS RUSTY Administration Ascorbic Acid 1,000 mg 06/19/20 09:00 06/22/20 08:37 Ascorbic Acid 500 Mg Chewable Tablet PO 1,000 mg DAILY RUSTY Administration Atorvastatin Calcium 20 mg 06/19/20 09:00 06/22/20 08:39 Atorvastatin Calcium 20 Mg Tab PO 20 mg DAILY RUSTY Administration Calcium Carbonate 1,000 mg 06/19/20 21:00 06/22/20 08:38 Calcium Carbonate 500 Mg Chewtab PO 1,000 mg BID RUSTY Administration Dexamethasone 6 mg 06/21/20 21:00 06/22/20 08:39 Dexamethasone 4 Mg/Ml Vial SLOW IVP 6 mg BID RUSTY Administration Dextrose/Water 25 gm 06/17/20 22:19 06/21/20 08:10 Dextrose 50% Abboject 50 Ml Syringe SLOW IVP 25 gm PRN PRN Administration Hypoglycemia Enoxaparin Sodium 30 mg 06/18/20 09:00 06/22/20 08:44 Enoxaparin Sodium 30 Mg/0.3 Ml Syringe SC 30 mg 0900 RUSTY Administration Gabapentin 300 mg 06/18/20 15:00 06/22/20 15:45 Gabapentin 300 Mg Cap PO 300 mg TID RUSTY Administration Guaifenesin 600 mg 06/20/20 21:00 06/22/20 08:39 Guaifenesin Er 600 Mg Tab PO 600 mg Q12HR RUSTY Administration Dextrose/Water 1,000 mls @ 0 mls/hr 06/17/20 22:19 06/22/20 08:45 D5w IV 1,000 mls .Q0M PRN Administration Hypoglycemia As Directed Insulin Glargine 40 units/ 0.4 mls @ 0 mls/hr 06/18/20 21:00 06/19/20 21:12 Miscellaneous Medication SC 0.4 mls HS RUSTY Administration Insulin Glargine 40 units/ 0.4 mls @ 0 mls/hr 06/19/20 09:00 06/20/20 14:55 Miscellaneous Medication SC Not Given QAM RUSTY Ceftriaxone Sodium 2 gm/ 100 mls @ 200 mls/hr 06/18/20 14:00 06/22/20 12:38 Sodium Chloride IVPB 100 mls 1400 RUSTY Administration Insulin Human Lispro 0 units 06/17/20 22:19 06/22/20 16:37 Humalog 300 Units/3 Ml Vial SC 2 unit .MODERATE SLIDING SC PRN Administration Moderate Correctional Scale Polyethylene Glycol 17 gm 06/19/20 09:00 06/22/20 08:40 Polyethylene Glycol 3350 17 Gm Packet PO 17 gm DAILY RUSTY Administration Senna/Docusate Sodium 1 tab 06/18/20 21:00 06/22/20 08:39 Senokot S 8.6-50 Mg Tab PO 1 tab BID RUSTY Administration Sodium Chloride 10 ml 06/18/20 21:00 06/22/20 08:40 Flush - Normal Saline 10 Ml Syringe IVF 10 ml Q12HR RUSTY Administration Sotalol HCl 80 mg 06/18/20 21:00 06/22/20 08:44 Sotalol Hcl 80 Mg Tab PO 80 mg BID RUSTY Administration Tamsulosin HCl 0.4 mg 06/18/20 21:00 06/21/20 21:49 Tamsulosin Hcl 0.4 Mg Cap PO 0.4 mg HS RUSTY Administration Zinc Sulfate 220 mg 06/19/20 09:00 06/22/20 08:39 Zinc Sulfate 220 Mg Cap PO 220 mg DAILY RUSTY Administration - Exam General Appearance: NAD Eye: PERRL ENT: normocephalic atraumatic Neck: supple Heart: RRR Respiratory: CTAB, no wheezes, no rales, rhonchi Gastrointestinal: soft, non-tender Extremities: no cyanosis Skin: normal turgor Neurological: cranial nerve grossly intact Musculoskeletal: normal tone, normal strength Hosp A/P - Plan Patient is a 55 years old -[place] gentleman who has significant past medical history of CAD, CHF with status post AICD, diabetes complicated with legally blind, dyslipidemia, hypertension, who presented to ED with urinary retention, and fever. Acute hypoxic respiratory failures due to COVID-19 pneumonia --CRP still quite high, incr Decadron to BID, Vit C/D/Zinc. Wean O2 as gordo. --Pt declined convalescent plasma. Cont Remdesivir COVID-19 PNA --mgt as above. Hypoglycemia - d/t Lantus in setting of WILMAR and poor PO intake --Lantus on hold. will d/c D5NS as BG now stable. WILMAR d/t obstructive uropathy --s/p Barrios placement. Cr trending down. Appreciate urology/nephrology Obstructive uropathy d/t BPH --keep barrios in place for 2 weeks, follow up with urology --cont Flomax DM 2 --with hypoglycemia in setting of WILMAR --hold Lantus, cont ISS for now HTN, essential --BP stable. Losartan on hold d/t renal function Dyslipidemia --cont statin therapy
[2020-06-22] MEDS: REMDESIVIR (EUA) 100 MG in Sodium Chloride 0.9% 250 ML 230 ML IV SCH (17:56)
--- NOTE | 2020-06-22 18:46 | PRG ---
DATE OF SERVICE: 06/22/2020 OBJECTIVE: VITAL SIGNS: The patient is noted with the following vital signs; afebrile, temperature 97.4, pulse 83, respiratory rate of 20, O2 saturation of 95%, blood pressure 108/71. HEENT: Unremarkable. CARDIOVASCULAR SYSTEM: First and second heart sounds were heard. RESPIRATORY SYSTEM: Clear to auscultation. DIGESTIVE SYSTEM: Revealed a benign abdomen with positive bowel sounds. EXTREMITIES: No peripheral edema. SKIN: No new gross rash. LYMPHATICS: No peripheral lymphadenopathy. LABORATORY INVESTIGATION: Showed a creatinine of 1.45, BUN of 31. IMPRESSION: 1. Acute on chronic kidney disease, seems to be stabilized at this point. 2. Mild metabolic acidosis. 3. COVID pneumonitis. PLAN: 1. Continue current renal supportive measures. 2. Further management to be dependent on the clinical course. Job ID: [id number]
[2020-06-22] MEDS: Amitriptyline HCl 25 MG TAB PO SCH (21:44)
[2020-06-22] MEDS: Tamsulosin HCl 0.4 MG CAP PO SCH (21:45)
[2020-06-23 06:57] LABS: Anion Gap 20 mmol/L (10-20); BUN (Urea Nitrogen) 38 mg/dL (8.4-25.7); CRP (Inflammatory) 14.19 mg/dL (= or < 0.5); Calc. Creatinine Clearance 71 mL/min (70-130); Calcium 6.5 mg/dL (7.8-10.44); Carbon Dioxide 12 mmol/L (22-29); Chloride 109 mmol/L (98-107); Glucose 166 mg/dL (70-105); Sodium 137 mmol/L (136-145)
[2020-06-23 07:00] LABS: Hemoglobin 12.4 g/dL (14.0-18.0); Mean Corpuscular HGB CONC 30.8 g/dL (32.0-36.0); Mean Corpuscular Hemoglobin 26.6 pg (27.0-31.0); Mean Corpuscular Volume 86.3 fL (78.0-98.0); Mean Platelet Volume 9.2 fL (7.4-10.4); Platelet Count 251 thou/uL (130-400); RBC Distribution Width 14.8 % (11.5-14.5); Red Blood Cell (RBC) Count 4.64 mill/uL (4.70-6.10)
[2020-06-23 07:33] LABS: Band 6 % (5-11); Burr Cells MODERATE= 6-15 cells (100X) (0-1/hpf); Lymphocytes 5 % (21-51); MDiff Complete? YES; Monocytes 12 % (0-10); Neutrophil 76 % (42-75); Platelet Morphology Comment Appears Adequate; Polychromasia SLIGHT = 2-3 cells (100X) (0-2/hpf); Reactive Lymphocytes 1 % (0-10)
[2020-06-23] MEDS: Sotalol HCl 80 MG TAB PO SCH ×2 (08:42→22:29)
[2020-06-23] MEDS: Senokot S 8.6-50 MG TAB PO SCH ×2 (08:42→22:31)
[2020-06-23] MEDS: AcetaZOLAMIDE 250 MG TAB PO SCH ×4 (08:42→22:31)
[2020-06-23] MEDS: Acetaminophen 325 MG TAB PO PRN ×2 (08:42→22:38)
[2020-06-23] MEDS: Gabapentin 300 MG CAP PO SCH ×3 (08:42→22:31)
[2020-06-23] MEDS: Ascorbic Acid 500 mg Chewable Tablet PO SCH (08:43)
[2020-06-23] MEDS: Dexamethasone 4 mg/ml Vial SLOW IVP SCH ×2 (08:43→22:25)
[2020-06-23] MEDS: Calcium Carbonate 500 MG ChewTAB PO SCH ×2 (08:43→22:25)
[2020-06-23] MEDS: Atorvastatin Calcium 20 MG TAB PO SCH (08:43)
[2020-06-23] MEDS: guaiFENesin ER 600 MG TAB PO SCH ×2 (08:43→22:30)
[2020-06-23] MEDS: Enoxaparin Sodium 30 MG/0.3 ML SYRINGE SC SCH (08:44)
[2020-06-23] MEDS: Polyethylene Glycol 3350 17 GM Packet PO SCH (08:44)
[2020-06-23] MEDS: Zinc Sulfate 220 MG CAP PO SCH (10:24)
[2020-06-23] MEDS: HumaLOG 300 UNITS/3 ML VIAL SC PRN (12:36)
[2020-06-23] MEDS: cefTRIAXone\\ROCEPHIN 2 GM in Sodium Chloride 0.9% 100 ML IVPB SCH (12:38)
[2020-06-23] MEDS: REMDESIVIR (EUA) 100 MG in Sodium Chloride 0.9% 250 ML 230 ML IV SCH (17:36)
--- NOTE | 2020-06-23 18:01 | PDOC.HOSPP ---
- Subjective Subjective: No fever. comfortable on Hi Johnny. Unweanable at this point. renal function recovered. - Objective Vital Signs & Weight: Vital Signs (12 hours) Temp Pulse Resp BP Pulse Ox 06/23/20 12:14 98.1 F 82 16 114/77 99 06/23/20 08:42 89 06/23/20 08:37 92 L 06/23/20 08:10 97.3 F L 89 16 125/81 100 06/23/20 08:00 92 L Weight Weight 188 lb 6.632 oz I&O: 06/22/20 06/23/20 06/24/20 06:59 06:59 06:59 Intake Total 1820 615 Output Total 800 750 Balance 1020 -135 Result Diagrams: 06/23/20 06:20 06/23/20 06:20 Additional Labs: Accuchecks 06/23/20 06/23/20 06/23/20 16:10 12:06 05:02 POC Glucose 180 H 222 H 145 H 06/22/20 19:46 POC Glucose 141 H Radiology Reviewed by me: Yes EKG Reviewed by me: Yes Hospitalist ROS - Medication Medications: Active Medications Generic Name Dose Route Start Last Admin Trade Name Freq PRN Reason Stop Dose Admin Acetaminophen 650 mg 06/17/20 21:58 06/23/20 08:42 Acetaminophen 325 Mg Tab PO 650 mg Q4H PRN Administration Headache/Fever/Mild Pain (1-3) Acetaminophen 650 mg 06/17/20 21:58 06/18/20 21:07 Acetaminophen 650 Mg Suppository [place] 650 mg Q4H PRN Administration Headache/Fever/Mild Pain (1-3) Acetaminophen/Codeine Phosphate 1 tab 06/18/20 12:13 06/19/20 18:28 Acetaminophen/Codeine 30-300mg Tablet PO 1 tab BID PRN Administration Pain Acetazolamide 250 mg 06/19/20 21:00 06/23/20 13:00 Acetazolamide 250 Mg Tab PO 250 mg QID RUSTY Administration Amitriptyline HCl 50 mg 06/18/20 21:00 06/22/20 21:44 Amitriptyline Hcl 25 Mg Tab PO 50 mg HS RUSTY Administration Ascorbic Acid 1,000 mg 06/19/20 09:00 06/23/20 08:43 Ascorbic Acid 500 Mg Chewable Tablet PO 1,000 mg DAILY RUSTY Administration Atorvastatin Calcium 20 mg 06/19/20 09:00 06/23/20 08:43 Atorvastatin Calcium 20 Mg Tab PO 20 mg DAILY RUSTY Administration Calcium Carbonate 1,000 mg 06/19/20 21:00 06/23/20 08:43 Calcium Carbonate 500 Mg Chewtab PO 1,000 mg BID RUSTY Administration Dexamethasone 6 mg 06/21/20 21:00 06/23/20 08:43 Dexamethasone 4 Mg/Ml Vial SLOW IVP 6 mg BID RUSTY Administration Dextrose/Water 25 gm 06/17/20 22:19 06/21/20 08:10 Dextrose 50% Abboject 50 Ml Syringe SLOW IVP 25 gm PRN PRN Administration Hypoglycemia Enoxaparin Sodium 30 mg 06/18/20 09:00 06/23/20 08:44 Enoxaparin Sodium 30 Mg/0.3 Ml Syringe SC 30 mg 0900 RUSTY Administration Gabapentin 300 mg 06/18/20 15:00 06/23/20 15:17 Gabapentin 300 Mg Cap PO 300 mg TID RUSTY Administration Guaifenesin 600 mg 06/20/20 21:00 06/23/20 08:43 Guaifenesin Er 600 Mg Tab PO 600 mg Q12HR RUSTY Administration Dextrose/Water 1,000 mls @ 0 mls/hr 06/17/20 22:19 06/22/20 08:45 D5w IV 1,000 mls .Q0M PRN Administration Hypoglycemia As Directed Insulin Glargine 40 units/ 0.4 mls @ 0 mls/hr 06/18/20 21:00 06/19/20 21:12 Miscellaneous Medication SC 0.4 mls HS RUSTY Administration Insulin Glargine 40 units/ 0.4 mls @ 0 mls/hr 06/19/20 09:00 06/20/20 14:55 Miscellaneous Medication SC Not Given QAM RUSTY Ceftriaxone Sodium 2 gm/ 100 mls @ 200 mls/hr 06/18/20 14:00 06/23/20 12:38 Sodium Chloride IVPB 100 mls 1400 RUSTY Administration Remdesivir 100 mg/ Sodium 250 mls @ 250 mls/hr 06/22/20 18:00 06/23/20 17:36 Chloride IV 06/25/20 18:59 250 mls 1800 RUSTY Administration Insulin Human Lispro 0 units 06/17/20 22:19 06/23/20 12:36 Humalog 300 Units/3 Ml Vial SC 4 unit .MODERATE SLIDING SC PRN Administration Moderate Correctional Scale Polyethylene Glycol 17 gm 06/19/20 09:00 06/23/20 08:44 Polyethylene Glycol 3350 17 Gm Packet PO 17 gm DAILY RUSTY Administration Senna/Docusate Sodium 1 tab 06/18/20 21:00 06/23/20 08:42 Senokot S 8.6-50 Mg Tab PO 1 tab BID RUSTY Administration Sodium Chloride 10 ml 06/18/20 21:00 06/23/20 08:44 Flush - Normal Saline 10 Ml Syringe IVF 10 ml Q12HR RUSTY Administration Sotalol HCl 80 mg 06/18/20 21:00 06/23/20 08:42 Sotalol Hcl 80 Mg Tab PO 80 mg BID RUSTY Administration Tamsulosin HCl 0.4 mg 06/18/20 21:00 06/22/20 21:45 Tamsulosin Hcl 0.4 Mg Cap PO 0.4 mg HS RUSTY Administration Zinc Sulfate 220 mg 06/19/20 09:00 06/23/20 10:24 Zinc Sulfate 220 Mg Cap PO 220 mg DAILY RUSTY Administration - Exam General Appearance: NAD Eye: PERRL ENT: normocephalic atraumatic Neck: supple Heart: RRR Respiratory: rhonchi Gastrointestinal: soft, non-tender Extremities: no cyanosis Skin: normal turgor, no lesions Neurological: cranial nerve grossly intact Musculoskeletal: normal tone Psychiatric: normal affect, normal behavior, A&O x 3 Hosp A/P - Plan Patient is a 55 years old -[place] gentleman who has significant past medical history of CAD, CHF with status post AICD, diabetes complicated with legally blind, dyslipidemia, hypertension, who presented to ED with urinary retention, and fever. Acute hypoxic respiratory failures due to COVID-19 pneumonia - still on Hi Johnny, unweanble at this point --Decadron incr to BID given high CRP, Vit C/D/Zinc. Wean O2 as gordo. --Pt declined convalescent plasma. Cont Remdesivir COVID-19 PNA --mgt as above. Hypoglycemia - d/t Lantus in setting of WILMAR and poor PO intake --Lantus on hold. D5NS discontinued as BG now stable. WILMAR d/t obstructive uropathy --s/p Barrios placement. Cr trending down. Appreciate urology/nephrology Obstructive uropathy d/t BPH --keep barrios in place for 2 weeks, follow up with urology --cont Flomax DM 2 --with hypoglycemia in setting of WILMAR --hold Lantus, cont ISS for now HTN, essential --BP stable. Losartan on hold d/t renal function Dyslipidemia --cont statin therapy
--- NOTE | 2020-06-23 19:47 | PRG ---
DATE OF SERVICE: 06/23/2020 OBJECTIVE: VITAL SIGNS: The patient noted with the following vital signs; afebrile, temperature 98.1, pulse 82, respiratory rate of 16, O2 saturations of 99%, blood pressure 114/77. HEENT: Unremarkable. CARDIOVASCULAR: First and second heart sounds were heard. RESPIRATORY: Clear to auscultation. DIGESTIVE SYSTEM: Revealed a benign abdomen. EXTREMITIES: No peripheral edema. SKIN: No new gross rash. LYMPHATICS: No peripheral lymphadenopathy. LABORATORY INVESTIGATION: Hemoglobin 12.4. Chemistry showed creatinine down to 1.39, BUN of 38. IMPRESSION: 1. Acute on chronic kidney disease, improving. 2. Hypocalcemia. 3. Metabolic acidosis. PLAN: 1. We will continue current renal supportive measures. 2. Consider calcium supplementation. 3. We will continue with current . Further management to be dependent on the clinical course. Job ID: [id number]
[2020-06-23] MEDS: Tamsulosin HCl 0.4 MG CAP PO SCH (22:30)
[2020-06-23] MEDS: Amitriptyline HCl 25 MG TAB PO SCH (22:30)
[2020-06-24] MEDS ORDERED: Ventilator Sedation Protocol 1 EACH FS SCH (06:15)
[2020-06-24] MEDS ORDERED: Norepinephrine 8 MG in Dextrose 5% in Water 242 ML IVPB PRN (06:15)
[2020-06-24] MEDS: fentaNYL Citrate/PF 2,000 MCG in Sodium Chloride 0.9% 60 ML IV SCH (06:20)
[2020-06-24] MEDS ORDERED: Morphine 2 MG/ML VIAL SLOW IVP PRN (06:30)
[2020-06-24] MEDS ORDERED: DISCONTINUE PREVIOUS NARCOTIC PAIN MEDICATIONS AND BENZODIAZEPINES FS SCH (06:30)
[2020-06-24] MEDS ORDERED: Propofol BOLUS 1,000 MG/100 ML VIAL IV PRN (06:30)
[2020-06-24] MEDS ORDERED: Fentanyl BOLUS 250 ML IVPB PRN (06:30)
[2020-06-24] MEDS ORDERED: Lorazepam 2 MG/ML VIAL ONE (06:33)
[2020-06-24 06:38] LABS: Hemoglobin 12.2 g/dL (14.0-18.0); Mean Corpuscular HGB CONC 30.7 g/dL (32.0-36.0); Mean Corpuscular Hemoglobin 26.4 pg (27.0-31.0); Mean Corpuscular Volume 86.2 fL (78.0-98.0); Mean Platelet Volume 8.8 fL (7.4-10.4); Platelet Count 243 thou/uL (130-400); RBC Distribution Width 15.1 % (11.5-14.5); Red Blood Cell (RBC) Count 4.61 mill/uL (4.70-6.10); White Blood Cell (WBC) Count 15.7 thou/uL (4.8-10.8)
[2020-06-24 06:45] LABS: Anion Gap 25 mmol/L (10-20); BUN (Urea Nitrogen) 50 mg/dL (8.4-25.7); CRP (Inflammatory) 10.54 mg/dL (= or < 0.5); Calc. Creatinine Clearance 59 mL/min (70-130); Calcium 5.6 mg/dL (7.8-10.44); Carbon Dioxide 17 mmol/L (22-29); Chloride 103 mmol/L (98-107); Glucose 270 mg/dL (70-105); Magnesium 2.2 mg/dL (1.6-2.6); Sodium 140 mmol/L (136-145)
[2020-06-24] MEDS ORDERED: Sodium Bicarb 50 MEQ/50 ML Abboject 8.4% SYRINGE IVP SCH ×3 (06:45→13:00)
--- NOTE | 2020-06-24 07:08 | PDOC.BPN ---
- Brief Progress Note Encounter Date: 06/24/20 called for patient with code blue - reported c/o of SOB while sitting at edge of bed , developed resp arrest immediately after . He was started on CPR with ROSC after 2 mins , He was subsequently intubated and placed on vent . During transfer to ICU and within 12 mins of first event , patient developed a second arrest , requiring repeat CPR for 2 mins and again ROSC. A wide complex arrhythmias was noted on tele strip and calcium gluconate 2 g given , sodium bicarb 100 meq x1 as well as levophed gtt was initiated. patient vitals stable now A right femoral vein was attempted for line placement with no success. procedure abandoned.
[2020-06-24] MEDS ORDERED: Lorazepam 2 MG/ML VIAL SLOW IVP SCH (07:15)
--- NOTE | 2020-06-24 07:41 | RAD ---
Chest one view HISTORY: COVID pneumonia. Intubation. COMPARISON: 06/21/2020. FINDINGS: Cardiac silhouette is magnified, upper limits of normal in size, and now slightly obscured by increasing ill-defined patchy infiltrates throughout each lung. Mediastinum is midline. Tip of an endotracheal catheter overlies the thoracic inlet. Defibrillator patch now over the right chest. Pulmonary vasculature slightly engorged. No evidence of pneumothorax. IMPRESSION : Endotracheal catheter in good radiographic position. Slight worsening of widespread infiltrate.
[2020-06-24 07:49] LABS: ALT (SGPT) 50 U/L (8-55); AST (SGOT) 116 U/L (5-34); Albumin 3.1 g/dL (3.5-5.0); Alkaline Phosphatase 192 U/L (40-110); Bilirubin, Direct 0.1 mg/dL (0.1-0.3); Bilirubin, Total 0.3 mg/dL (0.2-1.2)
[2020-06-24 08:24] LABS: Band 3 % (5-11); Burr Cells MODERATE= 6-15 cells (100X) (0-1/hpf); Hypochromia SLIGHT = 6-15 cells (100X) (0-5/hpf); Lymphocytes 8 % (21-51); MDiff Complete? YES; Monocytes 8 % (0-10); Neutrophil 79 % (42-75); Platelet Morphology Comment Appears Adequate; Polychromasia SLIGHT = 2-3 cells (100X) (0-2/hpf); Promyelocytes 1 % (0-0); Reactive Lymphocytes 1 % (0-10)
[2020-06-24] MEDS: Senokot S 8.6-50 MG TAB PO SCH ×2 (09:00→20:35)
[2020-06-24] MEDS: Polyethylene Glycol 3350 17 GM Packet PO SCH (09:00)
[2020-06-24] MEDS: Propofol 1,000 MG/100 ML VIAL IV PRN ×2 (09:15→20:40)
[2020-06-24] MEDS: Enoxaparin Sodium 30 MG/0.3 ML SYRINGE SC SCH (09:40)
[2020-06-24 09:46] LABS: Base Excess (BEa) -17.2 mEq/L (-2.0 to +3.0); CO2 Tension 28.4 mmHg (35.0-45.0); Calcium, Ionized (arterial) 1.15 mmol/L (1.12-1.30); Hemoglobin (Hb) 12.4 g/dL (14.0-18.0); O2 Tension (PaO2), arterial 77.9 mmHg (80.0-100.0); Potassium - ABG Lab 3.73 mmol/L (3.70-5.30)
[2020-06-24 09:47] LABS: Puncture Site LRA; pH, Arterial 7.16 (7.35-7.45)
[2020-06-24] MEDS: Sodium Bicarb 50 MEQ/50 ML Abboject 8.4% SYRINGE ONE ×2 (10:00→10:10)
[2020-06-24] MEDS: Sotalol HCl 80 MG TAB PO SCH ×2 (10:00→20:32)
[2020-06-24] MEDS: Calcium Carbonate 500 MG ChewTAB PO SCH ×2 (10:00→20:35)
[2020-06-24] MEDS: Zinc Sulfate 220 MG CAP PO SCH (10:00)
[2020-06-24] MEDS: Dexamethasone 4 mg/ml Vial SLOW IVP SCH ×2 (10:30→20:35)
[2020-06-24] MEDS: AcetaZOLAMIDE 250 MG TAB PO SCH (10:40)
[2020-06-24] MEDS ORDERED: Rocuronium Bromide 10 MG/ML (10ML VIAL) ONE (11:22)
[2020-06-24] MEDS: Gabapentin 300 MG CAP PO SCH ×3 (11:36→20:35)
[2020-06-24] MEDS: Ascorbic Acid 500 mg Chewable Tablet PO SCH (11:37)
[2020-06-24] MEDS: Atorvastatin Calcium 20 MG TAB PO SCH (11:42)
[2020-06-24 12:35] LABS: Actual Bicarbonate (HCO3a) 14.1 mEq/L (22-28); Base Excess (BEa) -17.3 mEq/L (-2.0 to +3.0); CO2 Tension 59.6 mmHg (35.0-45.0); Calcium, Ionized (arterial) 1.15 mmol/L (1.12-1.30); Carboxyhemoglobin (COHb) 0.9 gm% (0.0-3.0); Hemoglobin (Hb) 12.1 g/dL (14.0-18.0); O2 Tension (PaO2), arterial 71.9 mmHg (80.0-100.0); Potassium - ABG Lab 4.16 mmol/L (3.70-5.30)
[2020-06-24 12:36] LABS: pH, Arterial 6.99 (7.35-7.45)
--- NOTE | 2020-06-24 12:38 | RAD ---
RADIOGRAPH CHEST 1 VIEW: DATE: 06/24/2020 TIME: 12 7:00 PM HISTORY: 55-year-old male status post central line placement COMPARISON: 06/24/2020 6:09 AM FINDINGS: There is a new esophageal tube with distal tip at the fundus of the stomach. There is a new right sub clavian central venous catheter with distal tip overlaps by, and obscured by the esophagogastric tube and the single AICD lead. It is at least in the SVC. No pneumothorax is visualized. Endotracheal tube remains. The predominantly central alveolar infiltrates bilaterally, appear more dense now. No cardiomegaly., IMPRESSION: 1) right subclavian central venous catheter placement without pneumothorax. 2) esophagogastric tube placement into gastric fundus. 3) bilateral central alveolar infiltrates are probably slightly worse now.
[2020-06-24 12:55] LABS: Actual Bicarbonate (HCO3a) 18.1 mEq/L (22-28); Base Excess (BEa) -10.9 mEq/L (-2.0 to +3.0); CO2 Tension 54.3 mmHg (35.0-45.0); Calcium, Ionized (arterial) 1.07 mmol/L (1.12-1.30); Carboxyhemoglobin (COHb) 0.8 gm% (0.0-3.0); Hemoglobin (Hb) 11.7 g/dL (14.0-18.0); O2 Tension (PaO2), arterial 74.7 mmHg (80.0-100.0); Potassium - ABG Lab 3.52 mmol/L (3.70-5.30)
--- NOTE | 2020-06-24 12:55 | OP ---
DATE OF PROCEDURE: 06/24/2020 PREOPERATIVE DIAGNOSIS: Need for central venous access. POSTOPERATIVE DIAGNOSIS: Need for central venous access. PROCEDURES PERFORMED: Right subclavian central line placement. ANESTHESIA: 1% lidocaine for local. DESCRIPTION OF PROCEDURE: The chest wall was prepped and draped in usual sterile fashion. Skin and subcutaneous tissues were anesthetized with 1% lidocaine. Percutaneous access of right subclavian vein was obtained and a guidewire passed. The tract was dilated. 7-Gambian triple-lumen catheter was passed over the guidewire and secured to skin with silk suture. There was good flush and flow of the catheter. Chest x-ray shows no pneumothorax and good placement of the central line. Job ID: [id number]
[2020-06-24] MEDS: HumaLOG 300 UNITS/3 ML VIAL SC PRN ×3 (13:00→21:10)
[2020-06-24 13:04] LABS: Puncture Site Arterial Line; pH, Arterial 7.14 (7.35-7.45)
[2020-06-24 13:05] LABS: ALV-art Gradient 570.425 mmHg (0-20)
[2020-06-24] MEDS: cefTRIAXone\\ROCEPHIN 2 GM in Sodium Chloride 0.9% 100 ML IVPB SCH (14:50)
[2020-06-24] MEDS: guaiFENesin ER 600 MG TAB PO SCH (15:26)
[2020-06-24] MEDS: Norepinephrine 8 MG in Dextrose 5% in Water 242 ML IVPB SCH (16:19)
--- NOTE | 2020-06-24 17:21 | PRG ---
DATE OF SERVICE: 06/24/2020 The patient noted with the following vital signs, blood pressure 113/68, pulse of 106. IMPRESSION: 1. Acute on chronic kidney disease, much improved. 2. Respiratory failure. 3. Metabolic acidosis. PLAN: 1. Continue renal supportive measures. 2. Further management to be dependent on the clinical course. Job ID: [id number]
[2020-06-24 17:32] LABS: Base Excess (BEa) -17.6 mEq/L (-2.0 to +3.0); CO2 Tension 50.5 mmHg (35.0-45.0); Calcium, Ionized (arterial) 1.83 mmol/L (1.12-1.30); Carboxyhemoglobin (COHb) 0.8 gm% (0.0-3.0); Hemoglobin (Hb) 12.6 g/dL (14.0-18.0); O2 Tension (PaO2), arterial 48.1 mmHg (80.0-100.0); pH, Arterial 7.03 (7.35-7.45)
[2020-06-24 17:33] LABS: Puncture Site RRA
[2020-06-24 17:34] LABS: ALV-art Gradient 601.775 mmHg (0-20)
--- NOTE | 2020-06-24 17:57 | PDOC.HOSPP ---
- Subjective Subjective: Overnight event noted. Pt developed cardiopulmonary arrest overnight and subsequently intubated. I have updated pt's and his daughters this morning. Coagulant Dipper was consulted overnight to help us with vent mgt and resp failure. - Objective Vital Signs & Weight: Vital Signs (12 hours) Temp Pulse BP 06/24/20 16:00 100.6 F H 06/24/20 15:01 106 H 92/55 L 06/24/20 12:00 98.5 F 06/24/20 11:27 111 H 96/71 06/24/20 10:00 106 H 92/55 L 06/24/20 08:00 98.1 F 06/24/20 07:21 98.1 F 06/24/20 07:00 98.3 F Weight Admit Weight 188 lb 6.632 oz Weight 188 lb 6.632 oz Most Recent Monitor Data Heart Rate from ECG 101 NIBP 89/62 NIBP BP-Mean 71 Respiration from ECG 30 SpO2 100 I&O: 06/23/20 06/24/20 06/25/20 06:59 06:59 06:59 Intake Total 615 170 Output Total 750 1350 860 Balance -135 -1350 -690 Result Diagrams: 06/24/20 06:09 06/24/20 06:09 Additional Labs: Accuchecks 06/24/20 06/24/20 06/24/20 17:22 12:51 06:07 POC Glucose 287 H 248 H 251 H 06/23/20 20:51 POC Glucose 178 H Hospitalist ROS - Medication Medications: Active Medications Generic Name Dose Route Start Last Admin Trade Name Bravoq PRN Reason Stop Dose Admin Acetaminophen 650 mg 06/17/20 21:58 06/23/20 22:38 Acetaminophen 325 Mg Tab PO 650 mg Q4H PRN Administration Headache/Fever/Mild Pain (1-3) Acetaminophen 650 mg 06/17/20 21:58 06/18/20 21:07 Acetaminophen 650 Mg Suppository [place] 650 mg Q4H PRN Administration Headache/Fever/Mild Pain (1-3) Acetaminophen/Codeine Phosphate 1 tab 06/18/20 12:13 06/19/20 18:28 Acetaminophen/Codeine 30-300mg Tablet PO 1 tab BID PRN Administration Pain Amitriptyline HCl 50 mg 06/18/20 21:00 06/23/20 22:30 Amitriptyline Hcl 25 Mg Tab PO 50 mg HS RUSTY Administration Ascorbic Acid 1,000 mg 06/19/20 09:00 06/24/20 11:37 Ascorbic Acid 500 Mg Chewable Tablet PO 1,000 mg DAILY RUSTY Administration Atorvastatin Calcium 20 mg 06/19/20 09:00 06/24/20 11:42 Atorvastatin Calcium 20 Mg Tab PO 20 mg DAILY RUSTY Administration Calcium Carbonate 1,000 mg 06/19/20 21:00 06/24/20 10:00 Calcium Carbonate 500 Mg Chewtab PO Not Given BID RUSTY Dexamethasone 6 mg 06/21/20 21:00 06/24/20 10:30 Dexamethasone 4 Mg/Ml Vial SLOW IVP 6 mg BID RUSTY Administration Dextrose/Water 25 gm 06/17/20 22:19 06/21/20 08:10 Dextrose 50% Abboject 50 Ml Syringe SLOW IVP 25 gm PRN PRN Administration Hypoglycemia Enoxaparin Sodium 30 mg 06/18/20 09:00 06/24/20 09:40 Enoxaparin Sodium 30 Mg/0.3 Ml Syringe SC 30 mg 0900 RUSTY Administration Gabapentin 300 mg 06/18/20 15:00 06/24/20 15:25 Gabapentin 300 Mg Cap PO 300 mg TID RUSTY Administration Dextrose/Water 1,000 mls @ 0 mls/hr 06/17/20 22:19 06/22/20 08:45 D5w IV 1,000 mls .Q0M PRN Administration Hypoglycemia As Directed Insulin Glargine 40 units/ 0.4 mls @ 0 mls/hr 06/18/20 21:00 06/19/20 21:12 Miscellaneous Medication SC 0.4 mls HS RUSTY Administration Insulin Glargine 40 units/ 0.4 mls @ 0 mls/hr 06/19/20 09:00 06/20/20 14:55 Miscellaneous Medication SC Not Given QAM RUSTY Ceftriaxone Sodium 2 gm/ 100 mls @ 200 mls/hr 06/18/20 14:00 06/24/20 14:50 Sodium Chloride IVPB 100 mls 1400 RUSTY Administration Remdesivir 100 mg/ Sodium 250 mls @ 250 mls/hr 06/22/20 18:00 06/23/20 17:36 Chloride IV 06/25/20 18:59 250 mls 1800 RUSTY Administration Norepinephrine Bitartrate 8 mg 250 mls @ 0 mls/hr 06/24/20 06:19 06/24/20 16:19 / Dextrose/Water IVPB 250 mls INF RUSTY Administration Protocol Titrate Fentanyl Citrate 2,000 mcg/ 100 mls @ 0 mls/hr 06/24/20 06:30 06/24/20 06:20 Sodium Chloride IV 07/24/20 06:30 100 mls INF RUSTY Administration Protocol Per Protocol Sodium Bicarbonate 75 meq/ 1,075 mls @ 100 mls/hr 06/24/20 10:30 06/24/20 12:17 Sodium Chloride IV 1,075 mls .[id number] RUSTY Administration Insulin Human Lispro 0 units 06/17/20 22:19 06/24/20 13:00 Humalog 300 Units/3 Ml Vial SC 4 unit .MODERATE SLIDING SC PRN Administration Moderate Correctional Scale Polyethylene Glycol 17 gm 06/19/20 09:00 06/24/20 09:00 Polyethylene Glycol 3350 17 Gm Packet PO Not Given DAILY RUSTY Senna/Docusate Sodium 1 tab 06/18/20 21:00 06/24/20 09:00 Senokot S 8.6-50 Mg Tab PO Not Given BID RUSTY Sodium Chloride 10 ml 06/18/20 21:00 06/24/20 08:15 Flush - Normal Saline 10 Ml Syringe IVF 10 ml Q12HR RUSTY Administration Sotalol HCl 80 mg 06/18/20 21:00 06/24/20 10:00 Sotalol Hcl 80 Mg Tab PO Not Given BID RUSTY Tamsulosin HCl 0.4 mg 06/18/20 21:00 06/23/20 22:30 Tamsulosin Hcl 0.4 Mg Cap PO 0.4 mg HS RUSTY Administration Zinc Sulfate 220 mg 06/19/20 09:00 06/24/20 10:00 Zinc Sulfate 220 Mg Cap PO Not Given DAILY RUSTY - Exam General - other findings: intubated Eye: PERRL ENT: normocephalic atraumatic Neck: supple Heart: RRR Respiratory: rhonchi Gastrointestinal: soft Extremities: no cyanosis Skin: normal turgor Neurological - other findings: intubated. Musculoskeletal - other findings: intubated Hosp A/P - Plan Patient is a 55 years old -[place] gentleman who has significant past medical history of CAD, CHF with status post AICD, diabetes complicated with legally blind, dyslipidemia, hypertension, who presented to ED with urinary retention, and fever. Acute hypoxic respiratory failures due to COVID-19 pneumonia - intubated overnight 06/23/20 --Decadron incr to BID given high CRP, Vit C/D/Zinc. Wean O2 as gordo. --Pt declined convalescent plasma. Cont Remdesivir --pul consulted --I have updated family members. cont supportive cares. COVID-19 PNA --mgt as above. WILMAR d/t obstructive uropathy --s/p Barrios placement. Cr trending down. Appreciate urology/nephrology Obstructive uropathy d/t BPH --keep barrios in place for 2 weeks, follow up with urology --cont Flomax DM 2 --with hypoglycemia in setting of WILMAR --hold Lantus, cont ISS for now HTN, essential --BP stable. Losartan on hold d/t renal function Dyslipidemia --cont statin therapy
[2020-06-24] MEDS: REMDESIVIR (EUA) 100 MG in Sodium Chloride 0.9% 250 ML 230 ML IV SCH (18:25)
[2020-06-24] MEDS: Amitriptyline HCl 25 MG TAB PO SCH (20:36)
[2020-06-24] MEDS: Tamsulosin HCl 0.4 MG CAP PO SCH (20:36)
--- NOTE | 2020-06-24 22:12 | CON ---
DATE OF CONSULTATION: 06/24/2020 HISTORY OF PRESENT ILLNESS: Mr. Araujo is a 55-year-old male who is admitted on 06/18. Code was called on 5 o'clock this morning. He was intubated, given epinephrine, bicarb and calcium. I was consulted because mechanical ventilation. He had a positive COVID screen on the . When he was admitted, he presented with urinary retention. He was noted to be febrile. He was straight cathed at 1.6 L. Urine was apparently obtained. His abdominal pain improved. He subsequently was admitted and then has deteriorated. PAST MEDICAL HISTORY: 1. Blindness. 2. Diabetes. 3. Hypertension. 4. History of urinary retention. 5. History of laser eye surgery. 6. History of defibrillator placement. FAMILY HISTORY: Negative for lung disease in early age. SOCIAL HISTORY: Nonsmoker. Nondrinker. REVIEW OF SYSTEMS: Not obtainable. PHYSICAL EXAMINATION: VITAL SIGNS: He is intubated. Blood pressure 108/70, heart rate is 90, respiratory rate is 24, oximetry is 100%. HEAD AND NECK: Exam is unremarkable. LUNGS: Remarkable for distant breath sounds. HEART: Regular rhythm. S1 and S2 are normal. ABDOMEN: Soft. EXTREMITIES: Without clubbing, cyanosis, or edema. LABORATORY DATA: Sodium 140, potassium 5, chloride 103, bicarb 17, BUN 50, creatinine 1.66. PH was 7.14, CO2 of 54, PO2 of 74 with a rate of 30. White count 15.7, hemoglobin 12.2, platelets 243,000. Bicarb drip was started. Bicarb was also pushed. IMAGING DATA: Chest x-ray shows bilateral infiltrates. Intake and output was -1350. There is no intake reported. He has had adequate urine output last 24 hours. IMPRESSION: COVID pneumonia, respiratory failure and underlying metabolic acidosis. PLAN: Support. Multiple medical problems lead to decrease in his prognosis, although he is young enough where he may actually survive. Continue supportive care. Critical care time 30 min Job ID: [id number] MTDD
[2020-06-25] MEDS: fentaNYL Citrate/PF 2,000 MCG in Sodium Chloride 0.9% 60 ML IV SCH ×2 (01:47→20:49)
[2020-06-25] MEDS: HumaLOG 300 UNITS/3 ML VIAL SC PRN ×5 (01:49→20:48)
[2020-06-25 05:45] LABS: ALT (SGPT) 30 U/L (8-55); AST (SGOT) 39 U/L (5-34); Albumin 2.5 g/dL (3.5-5.0); Alkaline Phosphatase 147 U/L (40-110); Bilirubin, Direct 0.2 mg/dL (0.1-0.3); Bilirubin, Total 0.3 mg/dL (0.2-1.2); Protein, Total 5.8 g/dL (6.0-8.3)
[2020-06-25 06:52] LABS: Actual Bicarbonate (HCO3a) 23.5 mEq/L (22-28); Base Excess (BEa) -0.4 mEq/L (-2.0 to +3.0); CO2 Tension 35.5 mmHg (35.0-45.0); Calcium, Ionized (arterial) 0.94 mmol/L (1.12-1.30); Carboxyhemoglobin (COHb) 0.3 gm% (0.0-3.0); Hemoglobin (Hb) 10.2 g/dL (14.0-18.0); O2 Tension (PaO2), arterial 66.9 mmHg (80.0-100.0); Potassium - ABG Lab 3.14 mmol/L (3.70-5.30); pH, Arterial 7.44 (7.35-7.45)
[2020-06-25 08:16] LABS: Puncture Site Arterial Line
[2020-06-25 08:18] LABS: ALV-art Gradient 316.525 mmHg (0-20)
[2020-06-25] MEDS: Gabapentin 300 MG CAP PO SCH ×3 (09:28→20:05)
[2020-06-25] MEDS: Calcium Carbonate 500 MG ChewTAB PO SCH ×2 (09:28→20:04)
[2020-06-25] MEDS: Sotalol HCl 80 MG TAB PO SCH ×2 (09:29→20:06)
[2020-06-25] MEDS: Zinc Sulfate 220 MG CAP PO SCH (09:30)
[2020-06-25] MEDS: Ascorbic Acid 500 mg Chewable Tablet PO SCH (09:30)
[2020-06-25] MEDS: Enoxaparin Sodium 30 MG/0.3 ML SYRINGE SC SCH (09:30)
[2020-06-25] MEDS: Dexamethasone 4 mg/ml Vial SLOW IVP SCH ×2 (09:30→20:05)
[2020-06-25] MEDS: Senokot S 8.6-50 MG TAB PO SCH ×2 (09:30→20:04)
[2020-06-25] MEDS: Atorvastatin Calcium 20 MG TAB PO SCH (09:30)
[2020-06-25] MEDS: Polyethylene Glycol 3350 17 GM Packet PO SCH (09:31)
[2020-06-25] MEDS: cefTRIAXone\\ROCEPHIN 2 GM in Sodium Chloride 0.9% 100 ML IVPB SCH (13:32)
--- NOTE | 2020-06-25 16:02 | PRG ---
DATE OF SERVICE: 06/25/2020 SUBJECTIVE: Sidney Araujo remains mechanically ventilated. PH 7.44, CO2 of 35, PO2 of 66. OBJECTIVE: VITAL SIGNS: Blood pressure 101/60, heart rates in the 80s, respiratory rates in the 20s. LUNGS: Remarkable for equal breath sounds. HEART: Regular rhythm. ABDOMEN: Soft. LABORATORY DATA: White count 15.7, hemoglobin 12.2, platelets 243. No new electrolytes today. PH 7.44, CO2 of 35, PO2 of 66. IMPRESSION: Respiratory failure associated with COVID pneumonia. Obviously, he is not weanable at this point in time. Other problems include blindness, diabetes, hypertension, and history of defibrillator. PLAN: Continue supportive care. Critical care time 30 min. Job ID: [id number] MTDD
--- NOTE | 2020-06-25 17:39 | PDOC.HOSPP ---
- Subjective Subjective: remains intubated - Objective Vital Signs & Weight: Vital Signs (12 hours) Temp Pulse Resp BP 06/25/20 16:00 100.1 F H 36 H 06/25/20 15:14 89 106/60 06/25/20 14:00 30 H 06/25/20 12:00 99.0 F 30 H 06/25/20 10:00 30 H 06/25/20 09:29 87 99/50 L 06/25/20 09:00 100.9 F H 06/25/20 08:00 101.1 F H 30 H 06/25/20 06:42 87 99/62 06/25/20 06:00 30 H Weight Admit Weight 188 lb 6.632 oz Weight 205 lb 0.478 oz Most Recent Monitor Data Heart Rate from ECG 94 NIBP 111/65 NIBP BP-Mean 80 Respiration from ECG 30 SpO2 97 I&O: 06/24/20 06/25/20 06/26/20 06:59 06:59 06:59 Intake Total 2930.5 530 Output Total 1350 1900 500 Balance -1350 1030.5 30 Result Diagrams: 06/24/20 06:09 06/24/20 06:09 Additional Labs: Accuchecks 06/25/20 06/25/20 06/25/20 16:23 14:12 08:14 POC Glucose 148 H 170 H 171 H 06/25/20 06/24/20 06/24/20 06:27 23:33 21:06 POC Glucose 230 H 236 H 289 H Hospitalist ROS - Medication Medications: Active Medications Generic Name Dose Route Start Last Admin Trade Name Mildred PRN Reason Stop Dose Admin Acetaminophen 650 mg 06/17/20 21:58 06/23/20 22:38 Acetaminophen 325 Mg Tab PO 650 mg Q4H PRN Administration Headache/Fever/Mild Pain (1-3) Acetaminophen 650 mg 06/17/20 21:58 06/18/20 21:07 Acetaminophen 650 Mg Suppository [place] 650 mg Q4H PRN Administration Headache/Fever/Mild Pain (1-3) Acetaminophen/Codeine Phosphate 1 tab 06/18/20 12:13 06/19/20 18:28 Acetaminophen/Codeine 30-300mg Tablet PO 1 tab BID PRN Administration Pain Amitriptyline HCl 50 mg 06/18/20 21:00 06/24/20 20:36 Amitriptyline Hcl 25 Mg Tab PO 50 mg HS RUSTY Administration Ascorbic Acid 1,000 mg 06/19/20 09:00 06/25/20 09:30 Ascorbic Acid 500 Mg Chewable Tablet PO 1,000 mg DAILY RUSTY Administration Atorvastatin Calcium 20 mg 06/19/20 09:00 06/25/20 09:30 Atorvastatin Calcium 20 Mg Tab PO 20 mg DAILY RUSTY Administration Calcium Carbonate 1,000 mg 06/19/20 21:00 06/25/20 09:28 Calcium Carbonate 500 Mg Chewtab PO 1,000 mg BID RUSTY Administration Dexamethasone 6 mg 06/21/20 21:00 06/25/20 09:30 Dexamethasone 4 Mg/Ml Vial SLOW IVP 6 mg BID RUSTY Administration Dextrose/Water 25 gm 06/17/20 22:19 06/21/20 08:10 Dextrose 50% Abboject 50 Ml Syringe SLOW IVP 25 gm PRN PRN Administration Hypoglycemia Enoxaparin Sodium 30 mg 06/18/20 09:00 06/25/20 09:30 Enoxaparin Sodium 30 Mg/0.3 Ml Syringe SC 30 mg 0900 RUSTY Administration Gabapentin 300 mg 06/18/20 15:00 06/25/20 14:22 Gabapentin 300 Mg Cap PO 300 mg TID RUSTY Administration Dextrose/Water 1,000 mls @ 0 mls/hr 06/17/20 22:19 06/22/20 08:45 D5w IV 1,000 mls .Q0M PRN Administration Hypoglycemia As Directed Insulin Glargine 40 units/ 0.4 mls @ 0 mls/hr 06/18/20 21:00 06/19/20 21:12 Miscellaneous Medication SC 0.4 mls HS RUSTY Administration Insulin Glargine 40 units/ 0.4 mls @ 0 mls/hr 06/19/20 09:00 06/20/20 14:55 Miscellaneous Medication SC Not Given QAM RUSTY Ceftriaxone Sodium 2 gm/ 100 mls @ 200 mls/hr 06/18/20 14:00 06/25/20 13:32 Sodium Chloride IVPB 100 mls 1400 RUSTY Administration Remdesivir 100 mg/ Sodium 250 mls @ 250 mls/hr 06/22/20 18:00 06/24/20 18:25 Chloride IV 06/25/20 18:59 250 mls 1800 RUSTY Administration Norepinephrine Bitartrate 8 mg 250 mls @ 0 mls/hr 06/24/20 06:19 06/24/20 16:19 / Dextrose/Water IVPB 250 mls INF RUSTY Administration Protocol Titrate Fentanyl Citrate 2,000 mcg/ 100 mls @ 0 mls/hr 06/24/20 06:30 06/25/20 01:47 Sodium Chloride IV 07/24/20 06:30 100 mls INF RUSTY Administration Protocol Per Protocol Sodium Bicarbonate 75 meq/ 1,075 mls @ 100 mls/hr 06/24/20 10:30 06/25/20 09:37 Sodium Chloride IV 1,075 mls .[id number] RUSTY Administration Insulin Human Lispro 0 units 06/17/20 22:19 06/25/20 14:22 Humalog 300 Units/3 Ml Vial SC 2 unit .MODERATE SLIDING SC PRN Administration Moderate Correctional Scale Polyethylene Glycol 17 gm 06/19/20 09:00 06/25/20 09:31 Polyethylene Glycol 3350 17 Gm Packet PO Not Given DAILY RUSTY Propofol 1,000 mg 06/24/20 06:30 06/24/20 20:40 Propofol 1,000 Mg/100 Ml Vial IV 07/24/20 06:30 1,000 mg INF PRN Administration TO ACHIEVE GOAL RASS Protocol Senna/Docusate Sodium 1 tab 06/18/20 21:00 06/25/20 09:30 Senokot S 8.6-50 Mg Tab PO 1 tab BID RUSTY Administration Sodium Chloride 10 ml 06/18/20 21:00 06/25/20 09:31 Flush - Normal Saline 10 Ml Syringe IVF 10 ml Q12HR RUSTY Administration Sotalol HCl 80 mg 06/18/20 21:00 06/25/20 09:29 Sotalol Hcl 80 Mg Tab PO Not Given BID RUSTY Tamsulosin HCl 0.4 mg 06/18/20 21:00 06/24/20 20:36 Tamsulosin Hcl 0.4 Mg Cap PO 0.4 mg HS RUSTY Administration Zinc Sulfate 220 mg 06/19/20 09:00 06/25/20 09:30 Zinc Sulfate 220 Mg Cap PO 220 mg DAILY RUSTY Administration - Exam General - other findings: intubated Eye: PERRL ENT: normocephalic atraumatic Neck: supple Heart: RRR Respiratory: rhonchi Gastrointestinal: soft Extremities: no cyanosis Skin: normal turgor Neurological: cranial nerve grossly intact Musculoskeletal: normal tone, normal strength Hosp A/P - Plan Patient is a 55 years old -[place] gentleman who has significant past medical history of CAD, CHF with status post AICD, diabetes complicated with legally blind, dyslipidemia, hypertension, who presented to ED with urinary retention, and fever. Acute hypoxic respiratory failures due to COVID-19 pneumonia - intubated overnight 06/23/20 --Decadron incr to BID given high CRP, Vit C/D/Zinc. Wean O2 as [place]. --Pt declined convalescent plasma. Cont Remdesivir --Appreciate pulmology input --I have updated family members. cont supportive cares. COVID-19 PNA --mgt as above. WILMAR d/t obstructive uropathy --s/p Barrios placement. Cr trending down. Appreciate urology/nephrology Obstructive uropathy d/t BPH --keep barrios in place for 2 weeks, follow up with urology --cont Flomax DM 2 - complicated with legally blind --with hypoglycemia in setting of WILMAR --hold Lantus, cont ISS for now HTN, essential --BP stable. Losartan on hold d/t renal function Dyslipidemia --cont statin therapy
[2020-06-25] MEDS: REMDESIVIR (EUA) 100 MG in Sodium Chloride 0.9% 250 ML 230 ML IV SCH (18:25)
[2020-06-25] MEDS: Norepinephrine 8 MG in Dextrose 5% in Water 242 ML IVPB SCH (18:36)
[2020-06-25] MEDS: Propofol 1,000 MG/100 ML VIAL IV PRN (18:36)
[2020-06-25] MEDS: Tamsulosin HCl 0.4 MG CAP PO SCH (20:04)
[2020-06-25] MEDS: Amitriptyline HCl 25 MG TAB PO SCH (20:04)
[2020-06-25] MEDS: Acetaminophen 325 MG TAB PO PRN (20:50)
[2020-06-26] MEDS: Propofol 1,000 MG/100 ML VIAL IV PRN ×2 (01:23→18:06)
[2020-06-26] MEDS: Acetaminophen 650 MG Suppository PR PRN (01:23)
[2020-06-26] MEDS: HumaLOG 300 UNITS/3 ML VIAL SC PRN ×5 (01:41→21:23)
[2020-06-26 05:43] LABS: Anion Gap 20 mmol/L (10-20); BUN (Urea Nitrogen) 54 mg/dL (8.4-25.7); Calc. Creatinine Clearance 58 mL/min (70-130); Calcium 6.2 mg/dL (7.8-10.44); Carbon Dioxide 25 mmol/L (22-29); Chloride 105 mmol/L (98-107); Glucose 224 mg/dL (70-105); Potassium 3.2 mmol/L (3.5-5.1); Sodium 147 mmol/L (136-145)
[2020-06-26 05:53] LABS: CRP (Inflammatory) 32.43 mg/dL (= or < 0.5)
--- NOTE | 2020-06-26 06:10 | PRG ---
DATE OF SERVICE: 06/25/2020 OBJECTIVE: VITAL SIGNS: The patient noted with the following vital signs; blood pressure 111/65, pulse of 94. HEENT: Unremarkable. CARDIOVASCULAR SYSTEM: First and second heart sounds were heard. RESPIRATORY SYSTEM: Clear to auscultation. DIGESTIVE SYSTEM: Revealed a benign abdomen with positive bowel sounds. EXTREMITIES: No peripheral edema. SKIN: No new gross rash. LYMPHATICS: No peripheral lymphadenopathy. IMPRESSION: 1. Acute on chronic kidney disease, which is improved to more or less the baseline level. 2. COVID pneumonitis. PLAN: Continue current renal supportive measures. Job ID: [id number]
[2020-06-26 06:11] LABS: Band 36 % (5-11); Hemoglobin 9.4 g/dL (14.0-18.0); Lymphocytes 4 % (21-51); MDiff Complete? YES; Mean Corpuscular HGB CONC 30.3 g/dL (32.0-36.0); Mean Corpuscular Volume 85.7 fL (78.0-98.0); Mean Platelet Volume 10.2 fL (7.4-10.4); Metamyelocyte 1 % (0-0); Monocytes 2 % (0-10); Neutrophil 57 % (42-75); Platelet Count 140 thou/uL (130-400); Platelet Morphology Comment Appears Adequate; Red Blood Cell (RBC) Count 3.62 mill/uL (4.70-6.10); White Blood Cell (WBC) Count 19.3 thou/uL (4.8-10.8)
[2020-06-26] MEDS: Gabapentin 300 MG CAP PO SCH ×3 (08:30→21:17)
[2020-06-26] MEDS: Polyethylene Glycol 3350 17 GM Packet PO SCH (08:30)
[2020-06-26] MEDS: Zinc Sulfate 220 MG CAP PO SCH (08:30)
[2020-06-26] MEDS: Senokot S 8.6-50 MG TAB PO SCH (08:30)
[2020-06-26] MEDS: Ascorbic Acid 500 mg Chewable Tablet PO SCH (08:30)
[2020-06-26] MEDS: Atorvastatin Calcium 20 MG TAB PO SCH (08:30)
[2020-06-26] MEDS: Enoxaparin Sodium 30 MG/0.3 ML SYRINGE SC SCH (08:31)
[2020-06-26] MEDS: Dexamethasone 4 mg/ml Vial SLOW IVP SCH ×2 (08:31→21:19)
[2020-06-26] MEDS: Calcium Carbonate 500 MG ChewTAB PO SCH (08:32)
[2020-06-26] MEDS: Ergocalciferol 1.25 MG(50,000 UNITS) CAP PO SCH (08:38)
[2020-06-26] MEDS: Pantoprazole 40 MG GRANULES PACKET PER TUBE SCH (08:38)
[2020-06-26] MEDS: Sotalol HCl 80 MG TAB PO SCH (09:00)
--- NOTE | 2020-06-26 09:49 | RAD ---
PORTABLE CHEST 1 VIEW: DATE: 06/26/2020. TIME: 5:41 AM. HISTORY: COVID pneumonia, respiratory failure. COMPARISON: 06/24/2020. FINDINGS: Line and tube placements are unchanged in position. Left-sided pacer device remains in place. The h eart size is normal. The lungs are expanded with interval improvement in the bilateral alveolar opac ities without complete resolution. IMPRESSION: Improving bilateral pneumonia. POS: URSULA
[2020-06-26] MEDS ORDERED: Metoclopramide HCl 10 MG/2 ML VIAL IVP PRN (10:53)
[2020-06-26] MEDS: cefTRIAXone\\ROCEPHIN 2 GM in Sodium Chloride 0.9% 100 ML IVPB SCH (14:46)
[2020-06-26] MEDS: fentaNYL Citrate/PF 2,000 MCG in Sodium Chloride 0.9% 60 ML IV SCH (15:40)
--- NOTE | 2020-06-26 17:59 | PRG ---
DATE OF SERVICE: 06/26/2020 SUBJECTIVE: Mr. Araujo remains hemodynamically stable. OBJECTIVE: VITAL SIGNS: Blood pressure 110/69, heart rate 88. LUNGS: Remarkable for coarse equal breath sounds. HEART: Regular rhythm. ABDOMEN: Soft. EXTREMITIES: Without edema. LABORATORY DATA: White count is 19.3, hemoglobin 9.4, and platelets 140. Sodium 147, potassium 3.2, chloride 105, bicarb 25, BUN 54, creatinine 1.86, and glucose is in the 165 to 224 range. IMPRESSION: COVID pneumonia with respiratory failure. Chest x-ray actually shows subtle improvement, FiO2 is down to 40%, so he may be making some progress. Continue supportive care. Intake and outputs positive at 3211. We will need to be careful fluid balance. Critical care time 30 min. Job ID: [id number] MTDD
--- NOTE | 2020-06-26 18:18 | PRG ---
DATE OF SERVICE: 06/26/2020 SUBJECTIVE: Sidney Araujo remains sedated and ventilated. OBJECTIVE: VITAL SIGNS: Blood pressure 110/69, heart rate is 88. LUNGS: Remarkable for coarse equal breath sounds. HEART: Regular rhythm. ABDOMEN: Soft. LABORATORY DATA: White count 19.3, hemoglobin 9.4, platelets 140. Sodium 147, potassium 3.2, chloride 105, bicarb 25, BUN 54, creatinine 1.86, glucose has been in the 165 to 219 range today. Chest x-rays suggest some improvement, which would argue that some of this is possibly pulmonary edema. IMPRESSION: COVID pneumonia with respiratory failure. PLAN: Continue nutritional support, mechanical ventilatory support . Critical care time 30 min. Job ID: [id number] MTDD
--- NOTE | 2020-06-26 18:29 | PDOC.HOSPP ---
- Subjective Subjective: Pt remains intubated. Fio2 weaned down. updated pt's . - Objective Vital Signs & Weight: Vital Signs (12 hours) Temp Pulse Resp 06/26/20 16:00 98.0 F 30 H 06/26/20 15:28 88 06/26/20 14:34 97.6 F 06/26/20 14:00 97.6 F 30 H 06/26/20 12:38 80 06/26/20 12:00 30 H 06/26/20 11:00 97.8 F 06/26/20 10:00 97.7 F 30 H 06/26/20 09:00 80 06/26/20 08:00 97.7 F 30 H 06/26/20 07:55 78 Weight Admit Weight 188 lb 6.632 oz Weight 212 lb 8.41 oz Most Recent Monitor Data Heart Rate from ECG 88 NIBP 110/66 NIBP BP-Mean 80 Respiration from ECG 30 SpO2 95 I&O: 06/25/20 06/26/20 06/27/20 06:59 06:59 06:59 Intake Total 2930.5 4666 2246 Output Total 1900 1455 860 Balance 1030.5 3211 1386 Result Diagrams: 06/26/20 04:30 06/26/20 04:30 Additional Labs: Accuchecks 06/26/20 06/26/20 06/26/20 16:00 12:05 09:09 POC Glucose 188 H 165 H 187 H 06/26/20 06/26/20 06/25/20 04:30 01:09 20:17 POC Glucose 219 H 207 H 210 H Radiology Reviewed by me: Yes EKG Reviewed by me: Yes Hospitalist ROS - Medication Medications: Active Medications Generic Name Dose Route Start Last Admin Trade Name Freq PRN Reason Stop Dose Admin Acetaminophen 650 mg 06/17/20 21:58 06/25/20 20:50 Acetaminophen 325 Mg Tab PO 650 mg Q4H PRN Administration Headache/Fever/Mild Pain (1-3) Acetaminophen 650 mg 06/17/20 21:58 06/26/20 01:23 Acetaminophen 650 Mg Suppository [place] 650 mg Q4H PRN Administration Headache/Fever/Mild Pain (1-3) Acetaminophen/Codeine Phosphate 1 tab 06/18/20 12:13 06/19/20 18:28 Acetaminophen/Codeine 30-300mg Tablet PO 1 tab BID PRN Administration Pain Amitriptyline HCl 50 mg 06/18/20 21:00 06/25/20 20:04 Amitriptyline Hcl 25 Mg Tab PO 50 mg HS RUSTY Administration Ascorbic Acid 1,000 mg 06/19/20 09:00 06/26/20 08:30 Ascorbic Acid 500 Mg Chewable Tablet PO 1,000 mg DAILY RUSTY Administration Atorvastatin Calcium 20 mg 06/19/20 09:00 06/26/20 08:30 Atorvastatin Calcium 20 Mg Tab PO 20 mg DAILY RUSTY Administration Calcium Carbonate 1,000 mg 06/19/20 21:00 06/26/20 08:32 Calcium Carbonate 500 Mg Chewtab PO 1,000 mg BID RUSTY Administration Dexamethasone 6 mg 06/21/20 21:00 06/26/20 08:31 Dexamethasone 4 Mg/Ml Vial SLOW IVP 6 mg BID RUSTY Administration Dextrose/Water 25 gm 06/17/20 22:19 06/21/20 08:10 Dextrose 50% Abboject 50 Ml Syringe SLOW IVP 25 gm PRN PRN Administration Hypoglycemia Enoxaparin Sodium 30 mg 06/18/20 09:00 06/26/20 08:31 Enoxaparin Sodium 30 Mg/0.3 Ml Syringe SC 30 mg 0900 RUSTY Administration Ergocalciferol 1.25 mg 06/26/20 09:00 06/26/20 08:38 Ergocalciferol 1.25 Mg(50,000 Units) Cap PO 1.25 mg Q7DAYS RUSTY Administration Gabapentin 300 mg 06/18/20 15:00 06/26/20 15:50 Gabapentin 300 Mg Cap PO 300 mg TID RUSTY Administration Dextrose/Water 1,000 mls @ 0 mls/hr 06/17/20 22:19 06/22/20 08:45 D5w IV 1,000 mls .Q0M PRN Administration Hypoglycemia As Directed Insulin Glargine 40 units/ 0.4 mls @ 0 mls/hr 06/18/20 21:00 06/19/20 21:12 Miscellaneous Medication SC 0.4 mls HS RUSTY Administration Insulin Glargine 40 units/ 0.4 mls @ 0 mls/hr 06/19/20 09:00 06/20/20 14:55 Miscellaneous Medication SC Not Given QAM RUSTY Ceftriaxone Sodium 2 gm/ 100 mls @ 200 mls/hr 06/18/20 14:00 06/26/20 14:46 Sodium Chloride IVPB 100 mls 1400 RUSTY Administration Norepinephrine Bitartrate 8 mg 250 mls @ 0 mls/hr 06/24/20 06:19 06/25/20 18:36 / Dextrose/Water IVPB 250 mls INF RUSTY Administration Protocol Titrate Fentanyl Citrate 2,000 mcg/ 100 mls @ 0 mls/hr 06/24/20 06:30 06/26/20 15:40 Sodium Chloride IV 07/24/20 06:30 100 mls INF RUSTY Administration Protocol Per Protocol Sodium Bicarbonate 75 meq/ 1,075 mls @ 100 mls/hr 06/24/20 10:30 06/26/20 17:14 Sodium Chloride IV 1,075 mls .[id number] RUSTY Administration Insulin Human Lispro 0 units 06/17/20 22:19 06/26/20 12:10 Humalog 300 Units/3 Ml Vial SC 2 unit .MODERATE SLIDING SC PRN Administration Moderate Correctional Scale Pantoprazole Sodium 40 mg 06/26/20 09:00 06/26/20 08:38 Pantoprazole 40 Mg Granules Packet PER TUBE 40 mg DAILY RUSTY Administration Polyethylene Glycol 17 gm 06/19/20 09:00 06/26/20 08:30 Polyethylene Glycol 3350 17 Gm Packet PO 17 gm DAILY RUSTY Administration Propofol 1,000 mg 06/24/20 06:30 06/26/20 18:06 Propofol 1,000 Mg/100 Ml Vial IV 07/24/20 06:30 1,000 mg INF PRN Administration TO ACHIEVE GOAL RASS Protocol Senna/Docusate Sodium 1 tab 06/18/20 21:00 06/26/20 08:30 Senokot S 8.6-50 Mg Tab PO 1 tab BID RUSTY Administration Sodium Chloride 10 ml 06/18/20 21:00 06/26/20 08:33 Flush - Normal Saline 10 Ml Syringe IVF 10 ml Q12HR RUSTY Administration Sotalol HCl 80 mg 06/18/20 21:00 06/26/20 09:00 Sotalol Hcl 80 Mg Tab PO Not Given BID RUSTY Tamsulosin HCl 0.4 mg 06/18/20 21:00 06/25/20 20:04 Tamsulosin Hcl 0.4 Mg Cap PO 0.4 mg HS RUSTY Administration Zinc Sulfate 220 mg 06/19/20 09:00 06/26/20 08:30 Zinc Sulfate 220 Mg Cap PO 220 mg DAILY RUSTY Administration - Exam General - other findings: sedated and intubated Eye: PERRL ENT: normocephalic atraumatic Neck: supple Heart: RRR Respiratory: rhonchi Extremities: 1+ LE edema Skin: normal turgor Neurological: cranial nerve grossly intact Hosp A/P - Plan Patient is a 55 years old -[place] gentleman who has significant past medical history of CAD, CHF with status post AICD, diabetes complicated with legally blind, dyslipidemia, hypertension, who presented to ED with urinary retention, and fever. Acute hypoxic respiratory failures due to COVID-19 pneumonia - intubated overnight 06/23/20 --Decadron incr to BID given high CRP, Vit C/D/Zinc. Wean O2 as [place]. --Pt declined convalescent plasma. Cont Remdesivir --Appreciate pulmology input --I have updated family member (). cont supportive cares. COVID-19 PNA --mgt as above. WILMAR d/t obstructive uropathy --s/p Barrios placement. Cr trending down. Appreciate urology/nephrology Obstructive uropathy d/t BPH --keep barrios in place for 2 weeks, follow up with urology --cont Flomax DM 2 - complicated with legally blind --with hypoglycemia in setting of WILMAR --hold Lantus, cont ISS for now HTN, essential --BP stable. Losartan on hold d/t renal function Dyslipidemia --cont statin therapy
[2020-06-26] MEDS: Amitriptyline HCl 25 MG TAB PO SCH (21:19)
[2020-06-26] MEDS: Tamsulosin HCl 0.4 MG CAP PO SCH (21:19)
[2020-06-26] MEDS: Insulin Glargine 40 UNITS in Pre-Filled Syringe 1 EACH SC SCH (21:28)
[2020-06-27] MEDS: HumaLOG 300 UNITS/3 ML VIAL SC PRN ×3 (00:20→17:05)
[2020-06-27 06:36] LABS: Anion Gap 17 mmol/L (10-20); BUN (Urea Nitrogen) 52 mg/dL (8.4-25.7); Calc. Creatinine Clearance 69 mL/min (70-130); Calcium 6.1 mg/dL (7.8-10.44); Carbon Dioxide 28 mmol/L (22-29); Chloride 105 mmol/L (98-107); Glucose 240 mg/dL (70-105); Potassium 3.1 mmol/L (3.5-5.1); Sodium 147 mmol/L (136-145)
[2020-06-27 06:45] LABS: Band 15 % (5-11); Hemoglobin 10.1 g/dL (14.0-18.0); Hypochromia SLIGHT = 6-15 cells (100X) (0-5/hpf); Lymphocytes 1 % (21-51); MDiff Complete? YES; Mean Corpuscular HGB CONC 31.4 g/dL (32.0-36.0); Mean Corpuscular Hemoglobin 26.6 pg (27.0-31.0); Mean Corpuscular Volume 84.6 fL (78.0-98.0); Mean Platelet Volume 11.1 fL (7.4-10.4); Metamyelocyte 1 % (0-0); Monocytes 4 % (0-10); Neutrophil 79 % (42-75); Nucleated RBC 1 % (0); Platelet Count 167 thou/uL (130-400); Platelet Morphology Comment Appears Adequate; Red Blood Cell (RBC) Count 3.79 mill/uL (4.70-6.10)
[2020-06-27 06:47] LABS: CRP (Inflammatory) 31.16 mg/dL (= or < 0.5)
[2020-06-27] MEDS: Norepinephrine 8 MG in Dextrose 5% in Water 242 ML IVPB SCH ×2 (09:22→23:57)
[2020-06-27] MEDS: Atorvastatin Calcium 20 MG TAB PO SCH (09:23)
[2020-06-27] MEDS: Gabapentin 300 MG CAP PO SCH ×3 (09:23→21:08)
[2020-06-27] MEDS: Zinc Sulfate 220 MG CAP PO SCH (09:23)
[2020-06-27] MEDS: Dexamethasone 4 mg/ml Vial SLOW IVP SCH ×2 (09:24→21:09)
[2020-06-27] MEDS: Ascorbic Acid 500 mg Chewable Tablet PO SCH (09:25)
[2020-06-27] MEDS: Insulin Glargine 40 UNITS in Pre-Filled Syringe 1 EACH SC SCH ×2 (09:25→21:46)
[2020-06-27] MEDS: Pantoprazole 40 MG GRANULES PACKET PER TUBE SCH (09:26)
[2020-06-27] MEDS: Polyethylene Glycol 3350 17 GM Packet PO SCH (09:26)
[2020-06-27] MEDS: Calcium Carbonate 500 MG ChewTAB PO SCH ×2 (09:26→21:07)
[2020-06-27] MEDS: Propofol 1,000 MG/100 ML VIAL IV PRN (09:30)
[2020-06-27] MEDS: Enoxaparin Sodium 30 MG/0.3 ML SYRINGE SC SCH (09:32)
[2020-06-27] MEDS: Senokot S 8.6-50 MG TAB PO SCH ×2 (09:37→21:08)
[2020-06-27] MEDS: fentaNYL Citrate/PF 2,000 MCG in Sodium Chloride 0.9% 60 ML IV SCH (11:02)
--- NOTE | 2020-06-27 11:39 | RAD ---
CHEST 1 VIEW: Date: 06/27/2020 COMPARISON: 06/26/2020. HISTORY: COVID pneumonia. Respiratory failure. FINDINGS: Stable endotracheal tube, nasogastric tube, and right-sided subclavian vascular catheter. Stable left -sided transvenous pacemaker. Stable cardiac silhouette. Persistent multilobar and interstitial and alveolar opacities. No pneumothorax. IMPRESSION: Stable multilobar COVID pneumonia. POS: OFF
[2020-06-27] MEDS: Sodium Chloride 0.45% 1,000 ML IV SCH (14:06)
[2020-06-27] MEDS: cefTRIAXone\\ROCEPHIN 2 GM in Sodium Chloride 0.9% 100 ML IVPB SCH (14:42)
--- NOTE | 2020-06-27 15:15 | PDOC.HOSPP ---
- Subjective Encounter Date: 06/27/20 Encounter Time: 08:45 Subjective: sedated and is on vent tries to open his eyes to touch/verbal stimuli - Objective Vital Signs & Weight: Vital Signs (12 hours) Temp Pulse Resp 06/27/20 15:00 98 06/27/20 08:00 98.5 F 06/27/20 07:39 76 06/27/20 06:00 30 H 06/27/20 04:00 97.5 F L 30 H Weight Admit Weight 188 lb 6.632 oz Weight 214 lb 15.211 oz Most Recent Monitor Data Heart Rate from ECG 89 NIBP 114/66 NIBP BP-Mean 82 Respiration from ECG 30 SpO2 88 I&O: 06/26/20 06/27/20 06/28/20 06:59 06:59 06:59 Intake Total 4666 3838.7 200 Output Total 1455 3040 260 Balance 3211 798.7 -60 Result Diagrams: 06/27/20 05:12 06/27/20 05:12 Additional Labs: Accuchecks 06/27/20 06/27/20 06/27/20 09:19 06:05 00:00 POC Glucose 237 H 215 H 229 H 06/26/20 06/26/20 20:23 16:00 POC Glucose 203 H 188 H Hospitalist ROS - Medication Medications: Active Medications Generic Name Dose Route Start Last Admin Trade Name Freq PRN Reason Stop Dose Admin Acetaminophen 650 mg 06/17/20 21:58 06/25/20 20:50 Acetaminophen 325 Mg Tab PO 650 mg Q4H PRN Administration Headache/Fever/Mild Pain (1-3) Acetaminophen 650 mg 06/17/20 21:58 06/26/20 01:23 Acetaminophen 650 Mg Suppository [place] 650 mg Q4H PRN Administration Headache/Fever/Mild Pain (1-3) Acetaminophen/Codeine Phosphate 1 tab 06/18/20 12:13 06/19/20 18:28 Acetaminophen/Codeine 30-300mg Tablet PO 1 tab BID PRN Administration Pain Amitriptyline HCl 50 mg 06/18/20 21:00 06/26/20 21:19 Amitriptyline Hcl 25 Mg Tab PO 50 mg HS RUSTY Administration Ascorbic Acid 1,000 mg 06/19/20 09:00 06/27/20 09:25 Ascorbic Acid 500 Mg Chewable Tablet PO 1,000 mg DAILY RUSTY Administration Atorvastatin Calcium 20 mg 06/19/20 09:00 06/27/20 09:23 Atorvastatin Calcium 20 Mg Tab PO 20 mg DAILY RUSTY Administration Calcium Carbonate 1,000 mg 06/19/20 21:00 06/27/20 09:26 Calcium Carbonate 500 Mg Chewtab PO 1,000 mg BID RUSTY Administration Dexamethasone 6 mg 06/21/20 21:00 06/27/20 09:24 Dexamethasone 4 Mg/Ml Vial SLOW IVP 6 mg BID RUSTY Administration Dextrose/Water 25 gm 06/17/20 22:19 06/21/20 08:10 Dextrose 50% Abboject 50 Ml Syringe SLOW IVP 25 gm PRN PRN Administration Hypoglycemia Enoxaparin Sodium 30 mg 06/18/20 09:00 06/27/20 09:32 Enoxaparin Sodium 30 Mg/0.3 Ml Syringe SC 30 mg 0900 RUSTY Administration Ergocalciferol 1.25 mg 06/26/20 09:00 06/26/20 08:38 Ergocalciferol 1.25 Mg(50,000 Units) Cap PO 1.25 mg Q7DAYS RUSTY Administration Gabapentin 300 mg 06/18/20 15:00 06/27/20 14:43 Gabapentin 300 Mg Cap PO 300 mg TID RUSTY Administration Dextrose/Water 1,000 mls @ 0 mls/hr 06/17/20 22:19 06/22/20 08:45 D5w IV 1,000 mls .Q0M PRN Administration Hypoglycemia As Directed Insulin Glargine 40 units/ 0.4 mls @ 0 mls/hr 06/18/20 21:00 06/26/20 21:28 Miscellaneous Medication SC 0.4 mls HS RUSTY Administration Insulin Glargine 40 units/ 0.4 mls @ 0 mls/hr 06/19/20 09:00 06/27/20 09:25 Miscellaneous Medication SC 0.4 mls QAM RUSTY Administration Ceftriaxone Sodium 2 gm/ 100 mls @ 200 mls/hr 06/18/20 14:00 06/27/20 14:42 Sodium Chloride IVPB 100 mls 1400 RUSTY Administration Norepinephrine Bitartrate 8 mg 250 mls @ 0 mls/hr 06/24/20 06:19 06/27/20 09:22 / Dextrose/Water IVPB 250 mls INF RUSTY Administration Protocol Titrate Fentanyl Citrate 2,000 mcg/ 100 mls @ 0 mls/hr 06/24/20 06:30 06/27/20 11:02 Sodium Chloride IV 07/24/20 06:30 100 mls INF RUSTY Administration Protocol Per Protocol Sodium Chloride 1,000 mls @ 50 mls/hr 06/27/20 13:15 06/27/20 14:06 1/2 Normal Saline IV 1,000 mls .Q20H RUSTY Administration Insulin Human Lispro 0 units 06/17/20 22:19 06/27/20 09:27 Humalog 300 Units/3 Ml Vial SC 4 unit .MODERATE SLIDING SC PRN Administration Moderate Correctional Scale Pantoprazole Sodium 40 mg 06/26/20 09:00 06/27/20 09:26 Pantoprazole 40 Mg Granules Packet PER TUBE 40 mg DAILY RUSTY Administration Polyethylene Glycol 17 gm 06/19/20 09:00 06/27/20 09:26 Polyethylene Glycol 3350 17 Gm Packet PO 17 gm DAILY RUSTY Administration Propofol 1,000 mg 06/24/20 06:30 06/27/20 09:30 Propofol 1,000 Mg/100 Ml Vial IV 07/24/20 06:30 1,000 mg INF PRN Administration TO ACHIEVE GOAL RASS Protocol Senna/Docusate Sodium 1 tab 06/18/20 21:00 06/27/20 09:37 Senokot S 8.6-50 Mg Tab PO 1 tab BID RUSTY Administration Sodium Chloride 10 ml 06/18/20 21:00 06/27/20 09:37 Flush - Normal Saline 10 Ml Syringe IVF 10 ml Q12HR RUSTY Administration Sotalol HCl 80 mg 06/18/20 21:00 06/26/20 09:00 Sotalol Hcl 80 Mg Tab PO Not Given BID RUSTY Tamsulosin HCl 0.4 mg 06/18/20 21:00 06/26/20 21:19 Tamsulosin Hcl 0.4 Mg Cap PO 0.4 mg HS RUSTY Administration Zinc Sulfate 220 mg 06/19/20 09:00 06/27/20 09:23 Zinc Sulfate 220 Mg Cap PO 220 mg DAILY RUSTY Administration - Exam General Appearance: ill appearing Eye: PERRL, anicteric sclera ENT: no oropharyngeal lesions, moist mucosa Neck: supple, no JVD Heart: RRR, no murmur Respiratory: no wheezes, no rales, rhonchi Gastrointestinal: soft, non-tender, non-distended, normal bowel sounds Extremities: no cyanosis, 1+ LE edema Neurological: cranial nerve grossly intact, no focal deficits Hosp A/P (1) Pneumonia due to COVID-19 virus Code(s): U07.1 - COVID-19; J12.82 - PNEUMONIA DUE TO CORONAVIRUS DISEASE 2018 Status: Acute (2) Acute respiratory failure with hypoxia Code(s): J96.01 - ACUTE RESPIRATORY FAILURE WITH HYPOXIA Status: Acute (3) DM type 2 (diabetes mellitus, type 2) Status: Chronic Qualifiers: Diabetes mellitus superintendent container terminal insulin use: with retirement use (4) WILMAR (acute kidney injury) Code(s): N17.9 - ACUTE KIDNEY FAILURE, UNSPECIFIED Status: Acute (5) HLD (hyperlipidemia) Code(s): E78.5 - HYPERLIPIDEMIA, UNSPECIFIED Status: Chronic Qualifiers: Hyperlipidemia type: unspecified Qualified Code(s): E78.5 - Hyperlipidemia, unspecified (6) Obstructive uropathy Code(s): N13.9 - OBSTRUCTIVE AND REFLUX UROPATHY, UNSPECIFIED Status: Resolved (7) Blind in both eyes Code(s): H54.0 - BLINDNESS, BOTH EYES * DO NOT USE * Status: Chronic (8) Glaucoma Code(s): H40.9 - UNSPECIFIED GLAUCOMA Status: Chronic Qualifiers: Glaucoma type: unspecified (9) Hypertension Code(s): I10 - ESSENTIAL (PRIMARY) HYPERTENSION Status: Chronic Qualifiers: Hypertension type: essential hypertension Qualified Code(s): I10 - Essential (primary) hypertension - Plan weaning per pulm advice continue dexamethasone, albuterol inh, lantus iv fluids, neurontin, elavil and lipitor was intubated on 06/23/2020 has elevated wbc count likely margination? is on levophed, sbp around 120 this am, may taper and dc gave updates to his Mrs.[place] over phone
[2020-06-27] MEDS ORDERED: Potassium Chloride 20 MEQ in Premix Bag 1 BAG IVPB SCH (17:30)
--- NOTE | 2020-06-27 18:14 | PRG ---
DATE OF SERVICE: 06/27/2020 SUBJECTIVE: Sidney Araujo remains hemodynamically stable, mechanically ventilated. OBJECTIVE: VITAL SIGNS: Heart rates in the 80s, blood pressure 149/85, respiratory rate is 30, oximetry is in the low 90s, FiO2 is at 45% at this time. LUNGS: Equal breath sounds. HEART: Regular rhythm. ABDOMEN: Soft. EXTREMITIES: Without edema. LABORATORY DATA: White count 24, hemoglobin 10.1, platelets 167. Sodium 147, potassium 3.1, chloride 105, bicarb 28, BUN 52, creatinine 1.6. Creatinine was 1.8 yesterday, 1.6 the day before. IMPRESSION: COVID pneumonia, mechanically ventilated, clinically stable. Chest radiograph shows no significant change. Renal function appears to be stable at this time. We will continue supportive care, try to keep FiO2 down and airway pressures down. Critical care time 30 min. Job ID: [id number] MTDD
--- NOTE | 2020-06-27 19:48 | PRG ---
DATE OF SERVICE: 06/27/2020 OBJECTIVE: GENERAL: Patient is still on life support. Hemodynamically stable. HEENT: Remarkable for endotracheal tube in place. CARDIOVASCULAR: First and second heart sounds were heard. RESPIRATORY: Revealed vented sounds. DIGESTIVE: Revealed a benign abdomen. EXTREMITIES: No peripheral edema. SKIN: No new gross rash. LYMPHATICS: No peripheral lymphadenopathy. LABORATORY INVESTIGATION: Showed a sodium of 147 with potassium of 3.1, creatinine 1.6, BUN of 52. IMPRESSION: 1. Acute on chronic kidney disease, seems much more stable. 2. Hyponatremia free water repletion. 3. COVID pneumonitis resulting in renal failure. 4. Further management to be dependent on the clinical course. Job ID: [id number]
--- NOTE | 2020-06-27 19:53 | PRG ---
DATE OF SERVICE: 06/26/2020 SUBJECTIVE: The patient was seen, still on life support. Hemodynamically stable. OBJECTIVE: HEENT: Unremarkable CARDIOVASCULAR SYSTEM: First and second heart sounds were heard. RESPIRATORY SYSTEM: Revealed vented sounds. DIGESTIVE SYSTEM: Revealed a benign abdomen. EXTREMITIES: No peripheral edema. SKIN: No new gross rash. LYMPHATICS: No peripheral lymphadenopathy. LABORATORY INVESTIGATION: Showed a hemoglobin of 9.4. Creatinine of 1.86, with potassium of 3.2, and sodium of 147. IMPRESSION: 1. Respiratory failure in the context of problem #2. 2. COVID pneumonitis. 3. Hypernatremia in the context of free water deficit. 4. Mild hypokalemia. 5. Acute on chronic kidney disease, hemodynamically and cytokine mediated injury. PLAN: 1. We will continue current renal supportive measures. 2. Free water repletion. 3. Replete potassium. 4. Further management to be dependent on the clinical course. Job ID: [id number]
[2020-06-27] MEDS: Amitriptyline HCl 25 MG TAB PO SCH (21:08)
[2020-06-27] MEDS: Tamsulosin HCl 0.4 MG CAP PO SCH (21:09)
[2020-06-28] MEDS: Acetaminophen 650 MG Suppository PR PRN (00:26)
[2020-06-28 04:49] LABS: Anion Gap 15 mmol/L (10-20); BUN (Urea Nitrogen) 54 mg/dL (8.4-25.7); CRP (Inflammatory) 22.57 mg/dL (= or < 0.5); Calc. Creatinine Clearance 66 mL/min (70-130); Carbon Dioxide 30 mmol/L (22-29); Chloride 108 mmol/L (98-107); Glucose 132 mg/dL (70-105); Potassium 3.1 mmol/L (3.5-5.1); Sodium 150 mmol/L (136-145)
[2020-06-28 05:27] LABS: Hemoglobin 9.9 g/dL (14.0-18.0); Lymphocytes 2 % (21-51); MDiff Complete? YES; Mean Corpuscular HGB CONC 30.4 g/dL (32.0-36.0); Mean Corpuscular Hemoglobin 26.2 pg (27.0-31.0); Mean Platelet Volume 11.1 fL (7.4-10.4); Monocytes 1 % (0-10); Neutrophil 97 % (42-75); Platelet Count 162 thou/uL (130-400); Platelet Morphology Comment Appears Adequate; RBC Distribution Width 14.6 % (11.5-14.5); RBC Morphology Normal; Red Blood Cell (RBC) Count 3.77 mill/uL (4.70-6.10); White Blood Cell (WBC) Count 22.7 thou/uL (4.8-10.8)
[2020-06-28] MEDS: Propofol 1,000 MG/100 ML VIAL IV PRN (05:53)
[2020-06-28] MEDS: Enoxaparin Sodium 30 MG/0.3 ML SYRINGE SC SCH (08:24)
[2020-06-28] MEDS: Calcium Carbonate 500 MG ChewTAB PO SCH ×2 (08:26→21:04)
[2020-06-28] MEDS: Ascorbic Acid 500 mg Chewable Tablet PO SCH (08:26)
[2020-06-28] MEDS: Zinc Sulfate 220 MG CAP PO SCH (08:26)
[2020-06-28] MEDS: Pantoprazole 40 MG GRANULES PACKET PER TUBE SCH (08:27)
[2020-06-28] MEDS: Gabapentin 300 MG CAP PO SCH ×3 (08:27→20:58)
[2020-06-28] MEDS: Ergocalciferol 1.25 MG(50,000 UNITS) CAP PO SCH (08:27)
[2020-06-28] MEDS: Atorvastatin Calcium 20 MG TAB PO SCH (08:27)
[2020-06-28] MEDS: Senokot S 8.6-50 MG TAB PO SCH ×3 (08:28→20:56)
[2020-06-28] MEDS: Dexamethasone 4 mg/ml Vial SLOW IVP SCH ×2 (08:29→20:56)
[2020-06-28] MEDS: Polyethylene Glycol 3350 17 GM Packet PO SCH (08:29)
[2020-06-28] MEDS: Insulin Glargine 40 UNITS in Pre-Filled Syringe 1 EACH SC SCH (08:38)
--- NOTE | 2020-06-28 10:10 | RAD ---
AP CHEST: Date: 06/28/2020 HISTORY: COVID pneumonia, on ventilator, CCU follow-up. COMPARISON: 06/27/2020. FINDINGS/IMPRESSION: ET tube and NG tube, central line, and pacemaker leads unchanged. Hazy infiltrates with some patchy c onsolidation in the left mid and lower lung. Probably hazy ground-glass infiltrate in the right mid l skip. Probable tiny effusions. Exam probably not significantly changed considering differences in exposure. POS: AGW
[2020-06-28] MEDS: Sodium Chloride 0.45% 1,000 ML IV SCH (10:35)
[2020-06-28] MEDS: Piperacillin/Tazobactam 3.375 GM in Sodium Chloride 0.9% 100 ML IVPB SCH ×2 (12:30→17:09)
[2020-06-28] MEDS: fentaNYL Citrate/PF 2,000 MCG in Sodium Chloride 0.9% 60 ML IV SCH (12:39)
[2020-06-28] MEDS: Meropenem 1 GM in Sodium Chloride 0.9% 100 ML IVPB SCH (12:40)
--- NOTE | 2020-06-28 14:52 | PDOC.HOSPP ---
- Subjective Encounter Date: 06/28/20 Encounter Time: 08:45 Subjective: is sedated, on vent has fowl smell emanating from his oral cavity? - Objective Vital Signs & Weight: Vital Signs (12 hours) Temp Pulse Resp BP 06/28/20 14:24 97 06/28/20 10:57 99 06/28/20 10:00 30 H 06/28/20 08:00 99.2 F 30 H 06/28/20 07:41 95 06/28/20 06:00 30 H 06/28/20 05:00 99.1 F 06/28/20 04:33 97.9 F 06/28/20 04:00 30 H 06/28/20 03:00 100.4 F H 06/28/20 02:54 95 144/76 H Weight Admit Weight 188 lb 6.632 oz Weight 217 lb Most Recent Monitor Data Heart Rate from ECG 97 NIBP 115/62 NIBP BP-Mean 79 Respiration from ECG 0 SpO2 90 I&O: 06/27/20 06/28/20 06/29/20 06:59 06:59 06:59 Intake Total 3838.7 4264.7 Output Total 3040 1690 120 Balance 798.7 2574.7 -120 Result Diagrams: 06/28/20 04:02 06/28/20 04:02 Additional Labs: Accuchecks 06/28/20 06/28/20 06/27/20 09:50 04:10 21:14 POC Glucose 114 H 109 H 167 H 06/27/20 16:58 POC Glucose 225 H Hospitalist ROS - Medication Medications: Active Medications Generic Name Dose Route Start Last Admin Trade Name Freq PRN Reason Stop Dose Admin Acetaminophen 650 mg 06/17/20 21:58 06/25/20 20:50 Acetaminophen 325 Mg Tab PO 650 mg Q4H PRN Administration Headache/Fever/Mild Pain (1-3) Acetaminophen 650 mg 06/17/20 21:58 06/28/20 00:26 Acetaminophen 650 Mg Suppository [place] 650 mg Q4H PRN Administration Headache/Fever/Mild Pain (1-3) Amitriptyline HCl 50 mg 06/18/20 21:00 06/27/20 21:08 Amitriptyline Hcl 25 Mg Tab PO 50 mg HS RUSTY Administration Ascorbic Acid 1,000 mg 06/19/20 09:00 06/28/20 08:26 Ascorbic Acid 500 Mg Chewable Tablet PO 1,000 mg DAILY RUSTY Administration Atorvastatin Calcium 20 mg 06/19/20 09:00 06/28/20 08:27 Atorvastatin Calcium 20 Mg Tab PO 20 mg DAILY RUSTY Administration Calcium Carbonate 1,000 mg 06/19/20 21:00 06/28/20 08:26 Calcium Carbonate 500 Mg Chewtab PO 1,000 mg BID RUSTY Administration Dexamethasone 6 mg 06/21/20 21:00 06/28/20 08:29 Dexamethasone 4 Mg/Ml Vial SLOW IVP 6 mg BID RUSTY Administration Dextrose/Water 25 gm 06/17/20 22:19 06/21/20 08:10 Dextrose 50% Abboject 50 Ml Syringe SLOW IVP 25 gm PRN PRN Administration Hypoglycemia Enoxaparin Sodium 30 mg 06/18/20 09:00 06/28/20 08:24 Enoxaparin Sodium 30 Mg/0.3 Ml Syringe SC 30 mg 0900 RUSTY Administration Ergocalciferol 1.25 mg 06/26/20 09:00 06/28/20 08:27 Ergocalciferol 1.25 Mg(50,000 Units) Cap PO 1.25 mg Q7DAYS RUSTY Administration Gabapentin 300 mg 06/18/20 15:00 06/28/20 13:51 Gabapentin 300 Mg Cap PO 300 mg TID RUSTY Administration Dextrose/Water 1,000 mls @ 0 mls/hr 06/17/20 22:19 06/22/20 08:45 D5w IV 1,000 mls .Q0M PRN Administration Hypoglycemia As Directed Insulin Glargine 40 units/ 0.4 mls @ 0 mls/hr 06/18/20 21:00 06/27/20 21:46 Miscellaneous Medication SC 0.4 mls HS RUSTY Administration Insulin Glargine 40 units/ 0.4 mls @ 0 mls/hr 06/19/20 09:00 06/28/20 08:38 Miscellaneous Medication SC 0.4 mls QAM RUSTY Administration Norepinephrine Bitartrate 8 mg 250 mls @ 0 mls/hr 06/24/20 06:19 06/27/20 23:57 / Dextrose/Water IVPB 250 mls INF RUSTY Administration Protocol Titrate Fentanyl Citrate 2,000 mcg/ 100 mls @ 0 mls/hr 06/24/20 06:30 06/28/20 12:39 Sodium Chloride IV 07/24/20 06:30 100 mls INF RUSTY Administration Protocol Per Protocol Sodium Chloride 1,000 mls @ 50 mls/hr 06/27/20 13:15 06/28/20 10:35 1/2 Normal Saline IV 1,000 mls .Q20H RUSTY Administration Meropenem 1 gm/ Sodium 100 mls @ 200 mls/hr 06/28/20 13:00 06/28/20 12:40 Chloride IVPB 100 mls 0100,1300 RUSTY Administration Vancomycin HCl 2 gm/ Sodium 500 mls @ 250 mls/hr 06/28/20 14:00 06/28/20 13:34 Chloride IVPB 500 mls 1400 RUSTY Administration Piperacillin Sod/Tazobactam 100 mls @ 200 mls/hr 06/28/20 12:00 06/28/20 12:30 Sod 3.375 gm/ Sodium Chloride IVPB 100 mls Q6HR RUSTY Administration Insulin Human Lispro 0 units 06/17/20 22:19 06/27/20 17:05 Humalog 300 Units/3 Ml Vial SC 4 unit .MODERATE SLIDING SC PRN Administration Moderate Correctional Scale Pantoprazole Sodium 40 mg 06/26/20 09:00 06/28/20 08:27 Pantoprazole 40 Mg Granules Packet PER TUBE 40 mg DAILY RUSTY Administration Polyethylene Glycol 17 gm 06/19/20 09:00 06/28/20 08:29 Polyethylene Glycol 3350 17 Gm Packet PO 17 gm DAILY RUSTY Administration Propofol 1,000 mg 06/24/20 06:30 06/28/20 05:53 Propofol 1,000 Mg/100 Ml Vial IV 07/24/20 06:30 1,000 mg INF PRN Administration TO ACHIEVE GOAL RASS Protocol Senna/Docusate Sodium 1 tab 06/18/20 21:00 06/28/20 08:29 Senokot S 8.6-50 Mg Tab PO 1 tab BID RUSTY Administration Sodium Chloride 10 ml 06/18/20 21:00 06/28/20 08:29 Flush - Normal Saline 10 Ml Syringe IVF 10 ml Q12HR RUSTY Administration Sotalol HCl 80 mg 06/18/20 21:00 06/26/20 09:00 Sotalol Hcl 80 Mg Tab PO Not Given BID RUSTY Tamsulosin HCl 0.4 mg 06/18/20 21:00 06/27/20 21:09 Tamsulosin Hcl 0.4 Mg Cap PO 0.4 mg HS RUSTY Administration Zinc Sulfate 220 mg 06/19/20 09:00 06/28/20 08:26 Zinc Sulfate 220 Mg Cap PO 220 mg DAILY RUSTY Administration - Exam General Appearance: ill appearing Eye: PERRL, anicteric sclera ENT: no oropharyngeal lesions, dry oral mucosa ENT - other findings: caries+ Neck: supple, no JVD Heart: RRR, no murmur Respiratory: no wheezes, rales, rhonchi Gastrointestinal: soft, non-tender, non-distended, normal bowel sounds Extremities: no cyanosis, no edema Neurological: cranial nerve grossly intact, no focal deficits Hosp A/P (1) Pneumonia due to COVID-19 virus Code(s): U07.1 - COVID-19; J12.82 - PNEUMONIA DUE TO CORONAVIRUS DISEASE 2018 Status: Acute (2) Acute respiratory failure with hypoxia Code(s): J96.01 - ACUTE RESPIRATORY FAILURE WITH HYPOXIA Status: Acute (3) DM type 2 (diabetes mellitus, type 2) Status: Chronic Qualifiers: Diabetes mellitus terminal gauger supervisor insulin use: with terminal gauger supervisor use (4) WILMAR (acute kidney injury) Code(s): N17.9 - ACUTE KIDNEY FAILURE, UNSPECIFIED Status: Acute (5) HLD (hyperlipidemia) Code(s): E78.5 - HYPERLIPIDEMIA, UNSPECIFIED Status: Chronic Qualifiers: Hyperlipidemia type: unspecified Qualified Code(s): E78.5 - Hyperlipidemia, unspecified (6) Obstructive uropathy Code(s): N13.9 - OBSTRUCTIVE AND REFLUX UROPATHY, UNSPECIFIED Status: Resolved (7) Blind in both eyes Code(s): H54.0 - BLINDNESS, BOTH EYES * DO NOT USE * Status: Chronic (8) Glaucoma Code(s): H40.9 - UNSPECIFIED GLAUCOMA Status: Chronic Qualifiers: Glaucoma type: unspecified (9) Hypertension Code(s): I10 - ESSENTIAL (PRIMARY) HYPERTENSION Status: Chronic Qualifiers: Hypertension type: essential hypertension Qualified Code(s): I10 - Essential (primary) hypertension - Plan weaning per pulm advice continue dexamethasone, albuterol inh, lantus iv fluids, neurontin, elavil and lipitor was intubated on 06/23/2020 add merrem and vanc for possible bacterial infection, dulcolax suppository/enema if needed for bm is on levophed, sbp around 120, please dc if sbp holds up with taper please dc arterial line gave updates to his .Annel Mills over phone 06/27, 06/28 (discussed code status and she wants everything done for now)
--- NOTE | 2020-06-28 18:01 | PRG ---
DATE OF SERVICE: 06/28/2020 SUBJECTIVE: Mr. Araujo is afebrile. OBJECTIVE: VITAL SIGNS: Respiratory rate is 30, FiO2 is at 45%, blood pressure is 117/66, and heart rates in the 90s. LUNGS: Remarkable for coarse equal breath sounds. HEART: Regular rhythm. ABDOMEN: Soft. EXTREMITIES: Without edema. DIAGNOSTIC STUDIES: Chest x-ray is unchanged, is more of an infiltrate on the left. Nurses have noticed that he has a smell of horrible breath and now he is ventilated. I wonder if this is an odor coming from the exhale port on ventilator that is related to perhaps an anaerobic infection in his lung. His antimicrobial therapy has been adjusted, Zosyn. We will continue to follow. Job ID: [id number]
[2020-06-28] MEDS: Dextrose 50% Abboject 50 ML SYRINGE SLOW IVP PRN (20:29)
[2020-06-28] MEDS: Tamsulosin HCl 0.4 MG CAP PO SCH (20:56)
[2020-06-28] MEDS: Amitriptyline HCl 25 MG TAB PO SCH (20:56)
[2020-06-29] MEDS: Dextrose 50% Abboject 50 ML SYRINGE SLOW IVP PRN (00:17)
[2020-06-29] MEDS: Meropenem 1 GM in Sodium Chloride 0.9% 100 ML IVPB SCH (00:17)
[2020-06-29] MEDS: Piperacillin/Tazobactam 3.375 GM in Sodium Chloride 0.9% 100 ML IVPB SCH ×4 (03:59→16:22)
[2020-06-29] MEDS: Insulin Glargine 40 UNITS in Pre-Filled Syringe 1 EACH SC SCH ×3 (04:01→10:30)
[2020-06-29 07:49] LABS: Hemoglobin 8.3 g/dL (14.0-18.0); Mean Corpuscular HGB CONC 30.5 g/dL (32.0-36.0); Mean Corpuscular Hemoglobin 26.4 pg (27.0-31.0); Mean Corpuscular Volume 86.5 fL (78.0-98.0); Mean Platelet Volume 11.5 fL (7.4-10.4); Platelet Count 130 thou/uL (130-400); RBC Distribution Width 14.8 % (11.5-14.5); Red Blood Cell (RBC) Count 3.14 mill/uL (4.70-6.10); White Blood Cell (WBC) Count 12.9 thou/uL (4.8-10.8)
[2020-06-29 08:06] LABS: Anion Gap 12 mmol/L (10-20); BUN (Urea Nitrogen) 63 mg/dL (8.4-25.7); Calc. Creatinine Clearance 56 mL/min (70-130); Carbon Dioxide 30 mmol/L (22-29); Chloride 107 mmol/L (98-107); Glucose 136 mg/dL (70-105); Potassium 3.3 mmol/L (3.5-5.1); Sodium 146 mmol/L (136-145)
[2020-06-29 08:12] LABS: Calcium 5.5 mg/dL (7.8-10.44)
[2020-06-29 08:41] LABS: Band 16 % (5-11); Hypochromia SLIGHT = 6-15 cells (100X) (0-5/hpf); Lymphocytes 2 % (21-51); MDiff Complete? YES; Monocytes 7 % (0-10); Neutrophil 74 % (42-75); Nucleated RBC 1 % (0); Platelet Morphology Comment Appears Adequate; Polychromasia SLIGHT = 2-3 cells (100X) (0-2/hpf); Reactive Lymphocytes 1 % (0-10); Schistocytes SLIGHT = 2-5 cells (100X) (0-1/hpf); Target Cells SLIGHT = 2-5 cells (100X) (0-1/hpf)
--- NOTE | 2020-06-29 08:47 | PRG ---
DATE OF SERVICE: 06/29/2020 SUBJECTIVE: Mr. Sidney Araujo remains mechanically ventilated. Still has an anaerobic smell in the room. OBJECTIVE: VITAL SIGNS: Heart rate is 93, respiratory rate 30, FiO2 is 60, blood pressure 104/64. LUNGS: Remarkable for coarse equal breath sounds. HEART: Regular rhythm. ABDOMEN: Soft. EXTREMITIES: Without asymmetry or edema. DIAGNOSTIC STUDIES: Chest radiograph still shows left worse than right alveolar infiltrate. Intake and output are positive 1776, white count 12.9, hemoglobin 8.3, platelets 130. Sodium 146, potassium 3.3, chloride 107, bicarb 30, BUN 63, creatinine 2.15 up from 1.7. IMPRESSION: 1. Coronavirus disease pneumonia. 2. Acute on chronic kidney disease. 3. Question of anaerobic infection leading to smell in the room, i.e. aspiration pneumonia. His antimicrobial therapy was changed. might be a little better today. We will continue supportive care. He is not weanable. Critical care time 30 min. Job ID: [id number] MTDD
[2020-06-29] MEDS: Sodium Chloride 0.45% 1,000 ML IV SCH (08:57)
[2020-06-29] MEDS: Calcium Carbonate 500 MG ChewTAB PO SCH ×3 (08:58→21:26)
[2020-06-29] MEDS: Pantoprazole 40 MG GRANULES PACKET PER TUBE SCH (09:00)
[2020-06-29] MEDS: Dexamethasone 4 mg/ml Vial SLOW IVP SCH ×2 (09:00→21:26)
[2020-06-29] MEDS: Enoxaparin Sodium 30 MG/0.3 ML SYRINGE SC SCH (09:00)
[2020-06-29] MEDS: Atorvastatin Calcium 20 MG TAB PO SCH (09:00)
[2020-06-29] MEDS: Gabapentin 300 MG CAP PO SCH ×3 (09:01→21:27)
[2020-06-29] MEDS: Propofol 1,000 MG/100 ML VIAL IV PRN (09:01)
[2020-06-29] MEDS: Polyethylene Glycol 3350 17 GM Packet PO SCH (09:01)
[2020-06-29] MEDS: Senokot S 8.6-50 MG TAB PO SCH ×2 (09:01→21:27)
[2020-06-29] MEDS: Ascorbic Acid 500 mg Chewable Tablet PO SCH (09:02)
[2020-06-29] MEDS: Zinc Sulfate 220 MG CAP PO SCH (09:02)
--- NOTE | 2020-06-29 09:04 | RAD ---
CHEST 1 VIEW: Date: 07/10/2020 INDICATION: Intubation. COMPARISON: Prior exam dated 06/28/2020. FINDINGS: There is worsening bilateral air space disease. The more severe area of air space disease is affectin g the left perihilar region. Right subclavian central venous catheter, ET tube, and gastric catheter are unchanged. Dual lead pacemaker is similar. No pneumothorax is evident. IMPRESSION: Worsening bilateral pneumonia. POS: BH
[2020-06-29] MEDS: HumaLOG 300 UNITS/3 ML VIAL SC PRN ×2 (10:40→16:50)
[2020-06-29] MEDS: Norepinephrine 8 MG/0.9% NS 8 MG in Premix Bag 1 BAG IVPB SCH (12:29)
[2020-06-29] MEDS: fentaNYL Citrate/PF 2,000 MCG in Sodium Chloride 0.9% 60 ML IV SCH (13:55)
[2020-06-29] MEDS ORDERED: Calcium Gluconate 4.6 MEQ in Sodium Chloride 0.9% 100 ML IVPB SCH (14:45)
[2020-06-29] MEDS ORDERED: Acetaminophen 650 MG/20.3 ML UDCUP PER TUBE PRN (14:54)
--- NOTE | 2020-06-29 15:03 | PDOC.HOSPP ---
- Subjective Encounter Date: 06/29/20 Encounter Time: 08:00 Subjective: sedated, is on vent still has fowl odor emanating but is better than yesterday - Objective Vital Signs & Weight: Vital Signs (12 hours) Temp Pulse Resp Pulse Ox 06/29/20 14:35 93 06/29/20 12:00 100.2 F H 30 H 06/29/20 11:10 94 06/29/20 10:00 30 H 06/29/20 08:00 101.1 F H 30 H 92 L 06/29/20 07:58 93 06/29/20 06:00 30 H 06/29/20 04:00 98.4 F 30 H Weight Admit Weight 188 lb 6.632 oz Weight 229 lb 0.964 oz Most Recent Monitor Data Heart Rate from ECG 91 NIBP 112/66 NIBP BP-Mean 81 Respiration from ECG 0 SpO2 89 I&O: 06/28/20 06/29/20 06/30/20 06:59 06:59 06:59 Intake Total 4264.7 3001.6 550 Output Total 1690 1225 280 Balance 2574.7 1776.6 270 Result Diagrams: 06/29/20 07:33 06/29/20 07:33 Additional Labs: Accuchecks 06/29/20 06/29/20 06/29/20 10:25 06:38 00:34 POC Glucose 164 H 129 H 136 H 06/29/20 06/28/20 06/28/20 00:11 20:54 20:25 POC Glucose 65 L 101 H 49 L* 06/28/20 15:35 POC Glucose 85 Hospitalist ROS - Medication Medications: Active Medications Generic Name Dose Route Start Last Admin Trade Name Freq PRN Reason Stop Dose Admin Acetaminophen 650 mg 06/17/20 21:58 06/25/20 20:50 Acetaminophen 325 Mg Tab PO 650 mg Q4H PRN Administration Headache/Fever/Mild Pain (1-3) Acetaminophen 650 mg 06/17/20 21:58 06/28/20 00:26 Acetaminophen 650 Mg Suppository [place] 650 mg Q4H PRN Administration Headache/Fever/Mild Pain (1-3) Amitriptyline HCl 50 mg 06/18/20 21:00 06/28/20 20:56 Amitriptyline Hcl 25 Mg Tab PO 50 mg HS RUSTY Administration Ascorbic Acid 1,000 mg 06/19/20 09:00 06/29/20 09:02 Ascorbic Acid 500 Mg Chewable Tablet PO 1,000 mg DAILY RUSTY Administration Atorvastatin Calcium 20 mg 06/19/20 09:00 06/29/20 09:00 Atorvastatin Calcium 20 Mg Tab PO 20 mg DAILY RUSTY Administration Calcium Carbonate 1,000 mg 06/19/20 21:00 06/29/20 08:59 Calcium Carbonate 500 Mg Chewtab PO 1,000 mg BID RUSTY Administration Dexamethasone 6 mg 06/21/20 21:00 06/29/20 09:00 Dexamethasone 4 Mg/Ml Vial SLOW IVP 6 mg BID RUSTY Administration Dextrose/Water 25 gm 06/17/20 22:19 06/29/20 00:17 Dextrose 50% Abboject 50 Ml Syringe SLOW IVP 25 gm PRN PRN Administration Hypoglycemia Enoxaparin Sodium 30 mg 06/18/20 09:00 06/29/20 09:00 Enoxaparin Sodium 30 Mg/0.3 Ml Syringe SC 30 mg 0900 RUSTY Administration Ergocalciferol 1.25 mg 06/26/20 09:00 06/28/20 08:27 Ergocalciferol 1.25 Mg(50,000 Units) Cap PO 1.25 mg Q7DAYS RUSTY Administration Gabapentin 300 mg 06/18/20 15:00 06/29/20 09:01 Gabapentin 300 Mg Cap PO 300 mg TID RUSTY Administration Dextrose/Water 1,000 mls @ 0 mls/hr 06/17/20 22:19 06/22/20 08:45 D5w IV 1,000 mls .Q0M PRN Administration Hypoglycemia As Directed Fentanyl Citrate 2,000 mcg/ 100 mls @ 0 mls/hr 06/24/20 06:30 06/29/20 13:55 Sodium Chloride IV 07/24/20 06:30 100 mls INF RUSTY Administration Protocol Per Protocol Sodium Chloride 1,000 mls @ 50 mls/hr 06/27/20 13:15 06/29/20 08:57 1/2 Normal Saline IV 1,000 mls .Q20H RUSTY Administration Vancomycin HCl 2 gm/ Sodium 500 mls @ 250 mls/hr 06/28/20 14:00 06/28/20 13:34 Chloride IVPB 500 mls 1400 RUSTY Administration Piperacillin Sod/Tazobactam 100 mls @ 200 mls/hr 06/28/20 12:00 06/29/20 12:30 Sod 3.375 gm/ Sodium Chloride IVPB 100 mls Q6HR RUSTY Administration Norepinephrine Bitartrate 8 mg 250 mls @ 0 mls/hr 06/29/20 11:00 06/29/20 12:29 / Device IVPB 250 mls INF RUSTY Administration Protocol Titrate Insulin Human Lispro 0 units 06/17/20 22:19 06/29/20 10:40 Humalog 300 Units/3 Ml Vial SC 2 unit .MODERATE SLIDING SC PRN Administration Moderate Correctional Scale Pantoprazole Sodium 40 mg 06/26/20 09:00 06/29/20 09:00 Pantoprazole 40 Mg Granules Packet PER TUBE 40 mg DAILY RUSTY Administration Polyethylene Glycol 17 gm 06/19/20 09:00 06/29/20 09:01 Polyethylene Glycol 3350 17 Gm Packet PO 17 gm DAILY RUSTY Administration Propofol 1,000 mg 06/24/20 06:30 06/29/20 09:01 Propofol 1,000 Mg/100 Ml Vial IV 07/24/20 06:30 1,000 mg INF PRN Administration TO ACHIEVE GOAL RASS Protocol Senna/Docusate Sodium 1 tab 06/18/20 21:00 06/29/20 09:01 Senokot S 8.6-50 Mg Tab PO 1 tab BID RUSTY Administration Sodium Chloride 10 ml 06/18/20 21:00 06/29/20 09:04 Flush - Normal Saline 10 Ml Syringe IVF 10 ml Q12HR RUSTY Administration Sotalol HCl 80 mg 06/18/20 21:00 06/26/20 09:00 Sotalol Hcl 80 Mg Tab PO Not Given BID RUSTY Tamsulosin HCl 0.4 mg 06/18/20 21:00 06/28/20 20:56 Tamsulosin Hcl 0.4 Mg Cap PO 0.4 mg HS RUSTY Administration Zinc Sulfate 220 mg 06/19/20 09:00 06/29/20 09:02 Zinc Sulfate 220 Mg Cap PO 220 mg DAILY RUSTY Administration - Exam General Appearance: ill appearing Eye: PERRL, anicteric sclera ENT: no oropharyngeal lesions, moist mucosa Neck: supple, no JVD Heart: RRR, no murmur Respiratory: no wheezes, rales, rhonchi Gastrointestinal: soft, non-tender, non-distended, normal bowel sounds Extremities: no cyanosis, 1+ LE edema Neurological: cranial nerve grossly intact, no focal deficits Hosp A/P (1) Pneumonia due to COVID-19 virus Code(s): U07.1 - COVID-19; J12.82 - PNEUMONIA DUE TO CORONAVIRUS DISEASE 2018 Status: Acute (2) Acute respiratory failure with hypoxia Code(s): J96.01 - ACUTE RESPIRATORY FAILURE WITH HYPOXIA Status: Acute (3) DM type 2 (diabetes mellitus, type 2) Status: Chronic Qualifiers: Diabetes mellitus custodial insulin use: with custodial use (4) WILMAR (acute kidney injury) Code(s): N17.9 - ACUTE KIDNEY FAILURE, UNSPECIFIED Status: Acute (5) HLD (hyperlipidemia) Code(s): E78.5 - HYPERLIPIDEMIA, UNSPECIFIED Status: Chronic Qualifiers: Hyperlipidemia type: unspecified Qualified Code(s): E78.5 - Hyperlipidemia, unspecified (6) Obstructive uropathy Code(s): N13.9 - OBSTRUCTIVE AND REFLUX UROPATHY, UNSPECIFIED Status: Resolved (7) Blind in both eyes Code(s): H54.0 - BLINDNESS, BOTH EYES * DO NOT USE * Status: Chronic (8) Glaucoma Code(s): H40.9 - UNSPECIFIED GLAUCOMA Status: Chronic Qualifiers: Glaucoma type: unspecified (9) Hypertension Code(s): I10 - ESSENTIAL (PRIMARY) HYPERTENSION Status: Chronic Qualifiers: Hypertension type: essential hypertension Qualified Code(s): I10 - Essential (primary) hypertension - Plan weaning per pulm advice continue dexamethasone, albuterol inh, lantus held due to hypoglycemia, iv fluids, neurontin, elavil and lipitor was intubated on 06/23/2020 is on zosyn and vanc for possible bacterial infection, repeat blood cs on 06/28 shows no growth, dulcolax suppository/enema, miralax, no bm yet. sbp around 106 with volume up and edema gave updates to his Mrs.[place] over phone 06/27, 06/28 (discussed code status and she wants everything done for now)
[2020-06-29 15:48] LABS: ALT (SGPT) 64 U/L (8-55); AST (SGOT) 217 U/L (5-34); Albumin 1.9 g/dL (3.5-5.0); Alkaline Phosphatase 202 U/L (40-110); Bilirubin, Direct 0.4 mg/dL (0.1-0.3); Bilirubin, Total 0.6 mg/dL (0.2-1.2); Lipase 60 U/L (8-78)
[2020-06-29] MEDS: Potassium Chloride 40 MEQ in Dextrose 5% in Water 1,000 ML IV SCH (19:45)
[2020-06-29] MEDS: Tamsulosin HCl 0.4 MG CAP PO SCH (21:27)
[2020-06-29] MEDS: Amitriptyline HCl 25 MG TAB PO SCH (21:27)
[2020-06-30] MEDS: Piperacillin/Tazobactam 3.375 GM in Sodium Chloride 0.9% 100 ML IVPB SCH ×5 (00:46→23:46)
[2020-06-30] MEDS: HumaLOG 300 UNITS/3 ML VIAL SC PRN ×5 (00:56→22:38)
--- NOTE | 2020-06-30 05:44 | PRG ---
DATE OF SERVICE: 06/29/2020 OBJECTIVE: VITAL SIGNS: Patient is febrile, temperature of 101.1 pulse of 94, O2 saturation of 92%. HEENT: Unremarkable. Endotracheal tube in place. CARDIOVASCULAR SYSTEM: First and second heart sounds were noted. RESPIRATORY SYSTEM: Revealed vented sounds. DIGESTIVE SYSTEM: Revealed a benign abdomen. LABORATORY INVESTIGATION: Showed hemoglobin of 8.3. BUN of 63 with a creatinine of 2.15, potassium 3.3, sodium of 146. IMPRESSION: 1. Acute on chronic kidney disease. 2. Hypernatremia with hypokalemia. 3. COVID pneumonitis. 4. Respiratory failure. PLAN: 1. Continue current renal supportive measures. 2. Replete potassium. 3. Free water repletion, may use OG tube. Job ID: [id number]
[2020-06-30 06:53] LABS: Actual Bicarbonate (HCO3a) 25.8 mEq/L (22-28); Base Excess (BEa) 0.7 mEq/L (-2.0 to +3.0); CO2 Tension 43.6 mmHg (35.0-45.0); pH, Arterial 7.39 (7.35-7.45)
[2020-06-30 06:54] LABS: Calcium, Ionized (arterial) 0.85 mmol/L (1.12-1.30)
[2020-06-30 06:55] LABS: Hemoglobin 9.3 g/dL (14.0-18.0); Mean Corpuscular HGB CONC 30.3 g/dL (32.0-36.0); Mean Corpuscular Hemoglobin 26.5 pg (27.0-31.0); Mean Corpuscular Volume 87.4 fL (78.0-98.0); Mean Platelet Volume 9.8 fL (7.4-10.4); Platelet Count 154 thou/uL (130-400); RBC Distribution Width 15.2 % (11.5-14.5); White Blood Cell (WBC) Count 16.4 thou/uL (4.8-10.8)
[2020-06-30 07:05] LABS: Anion Gap 17 mmol/L (10-20); BUN (Urea Nitrogen) 84 mg/dL (8.4-25.7); Calc. Creatinine Clearance 47 mL/min (70-130); Carbon Dioxide 27 mmol/L (22-29); Chloride 104 mmol/L (98-107); Glucose 351 mg/dL (70-105); Potassium 3.7 mmol/L (3.5-5.1); Sodium 144 mmol/L (136-145)
[2020-06-30 07:08] LABS: Calcium 5.8 mg/dL (7.8-10.44)
[2020-06-30 07:20] LABS: O2 Tension (PaO2), arterial 44.7 mmHg (80.0-100.0)
[2020-06-30 07:21] LABS: Puncture Site RBA
--- NOTE | 2020-06-30 07:51 | RAD ---
XR Chest 1 View Portable History: Ventilated patient Comparison: Radiograph prior to Findings: Endotracheal tube tip just above the clavicles. Enteric tube tip below diaphragm although o ut of field of view. Single-lead defibrillator wire projects over the right ventricle. Right subclavian approach central venous catheter tip projects over the cavoatrial junction. Aeration has not improved with bullous formation left lung base. Extensive left upper lobe consolidat ion. Impression: No significant improvement of lung aeration with left basilar bulla formation placing thi s patient at increased risk for future pneumothorax.
[2020-06-30 07:54] LABS: Band 26 % (5-11); Hypochromia SLIGHT = 6-15 cells (100X) (0-5/hpf); Lymphocytes 1 % (21-51); MDiff Complete? YES; Monocytes 5 % (0-10); Neutrophil 68 % (42-75); Platelet Morphology Comment Appears Adequate; Polychromasia SLIGHT = 2-3 cells (100X) (0-2/hpf); Schistocytes SLIGHT = 2-5 cells (100X) (0-1/hpf); Target Cells SLIGHT = 2-5 cells (100X) (0-1/hpf)
[2020-06-30] MEDS: Polyethylene Glycol 3350 17 GM Packet PO SCH (08:36)
[2020-06-30] MEDS: Calcium Carbonate 500 MG ChewTAB PO SCH ×2 (08:36→21:27)
[2020-06-30] MEDS: Senokot S 8.6-50 MG TAB PO SCH (08:36)
[2020-06-30] MEDS: Pantoprazole 40 MG GRANULES PACKET PER TUBE SCH (08:36)
[2020-06-30] MEDS: Enoxaparin Sodium 30 MG/0.3 ML SYRINGE SC SCH (08:36)
[2020-06-30] MEDS: Atorvastatin Calcium 20 MG TAB PO SCH (08:36)
[2020-06-30] MEDS: Gabapentin 300 MG CAP PO SCH ×2 (08:36→16:12)
[2020-06-30] MEDS: Dexamethasone 4 mg/ml Vial SLOW IVP SCH ×2 (08:37→21:27)
[2020-06-30] MEDS: Ascorbic Acid 500 mg Chewable Tablet PO SCH (08:37)
[2020-06-30] MEDS: Zinc Sulfate 220 MG CAP PO SCH (08:37)
[2020-06-30] MEDS ORDERED: Fentanyl CADD 100 ML ONE (09:31)
[2020-06-30] MEDS ORDERED: Calcium Gluc 4.6 MEQ/10 ML (100 MG/ML) SLOW IVP SCH (11:38)
[2020-06-30] MEDS ORDERED: Furosemide 100 MG in Sodium Chloride 0.9% 100 ML IVPB SCH (11:45)
[2020-06-30] MEDS: Lorazepam 2 MG/ML VIAL SLOW IVP PRN ×2 (11:53→16:31)
[2020-06-30] MEDS: Norepinephrine 8 MG/0.9% NS 8 MG in Premix Bag 1 BAG IVPB SCH (13:15)
[2020-06-30] MEDS ORDERED: Vecuronium 10 MG VIAL IV PRN (14:28)
--- NOTE | 2020-06-30 15:13 | PDOC.PALCO ---
Palliative Care Consult - Consult Details Requesting Physician: Hospitalist, Dr Grey Reason for Consult: goals of care, assistance with communication prognosis/disease, complex decision-making - Pertinent HPI 55 year old male who presented secondary to urinary retention, febrile and lethargic. Poor historian. Admitted. Covid 19, placed on isolation. Subsequent intubation 06/23, abx. Poor prognosis. CT for abdominal distension. - Pertinent PMH CAD, CHF, AICD placement, DM, legally blind, - Social History Smoking Status: Never smoker Smoking: no tobacco exposure Alcohol Use: none Drug Use History: none Living Situation: - Medications MAR Reviewed: Yes - Allergies Allergies/Adverse Reactions: Allergies Allergy/AdvReac Type Severity Reaction Status Date / Time No Known Allergies Allergy Verified 06/18/20 02:56 - Subjective Mechanical ventilation, sedation. trach with purulent secretions - ROS Non Response: due to endotracheal tube, due to mental status - Objective Vital Signs: Vital Signs - Most Recent Temp Pulse Resp BP Pulse Ox 98.8 F 90 30 H 130/85 87 L 06/30/20 08:00 06/30/20 14:47 06/30/20 14:00 06/30/20 03:25 06/30/20 08:00 Palliative Performance Scale: 20 - Physical Exam Constitutional: encephalitic, ill appearing HEENT: moist MMs Respiratory: no rhonchi, no wheezing Deviation from normal: trach, mechanical ventilation Cardiovascular: no significant murmur, RRR, diminished peripheral pulses Gastrointestinal: soft Deviation from normal: distended Genitourinary: barrios catheter Musculoskeletal: edema present, diffuse muscle atrophy Deviation from normal: sedated Skin: cap refill <2 seconds, fragile Deviation from normal: Encephalopathic, sedated - Problem List (1) Palliative care encounter Code(s): Z51.5 - ENCOUNTER FOR PALLIATIVE CARE Status: Acute (2) Acute renal failure Status: Acute (3) Acute respiratory failure with hypoxia Code(s): J96.01 - ACUTE RESPIRATORY FAILURE WITH HYPOXIA Status: Acute (4) Anasarca Code(s): R60.1 - GENERALIZED EDEMA Status: Acute (5) COVID-19 Code(s): U07.1 - COVID-19 Status: Acute (6) Physical deconditioning Code(s): R53.81 - OTHER MALAISE Status: Acute (7) Pneumonia due to COVID-19 virus Code(s): U07.1 - COVID-19; J12.82 - PNEUMONIA DUE TO CORONAVIRUS DISEASE 2019 Status: Acute (8) DM type 2 (diabetes mellitus, type 2) Status: Chronic Qualifiers: Diabetes mellitus senior care insulin use: with senior care use - Plan/Recommendations Plan: Family meeting with patient , daughter and step daughter. Reviewed what their understanding is of current prognosis and disease processes. Revisited prognosis and consideration of transition to DNAR status. Daughter stated her dad would not desire this, however she would agree with what ever the felt was best. Mrs Up states that she continues to desire to have all aggressive measures and full resuscitation carried out if needed. [50] minutes spent on this encounter with >50% of the time in counseling and coordination of care. Thank you for this very appropriate consult.
[2020-06-30 15:26] LABS: Vancomycin, Trough 29.9 ug/mL
--- NOTE | 2020-06-30 15:38 | PDOC.HOSPP ---
- Subjective Encounter Date: 06/30/20 Encounter Time: 09:15 Subjective: is on vent, mild sedation bad odor has come down, has purulent tracheal secretions - Objective Vital Signs & Weight: Vital Signs (12 hours) Temp Pulse Resp Pulse Ox 06/30/20 14:47 90 06/30/20 14:00 30 H 06/30/20 12:00 30 H 06/30/20 10:59 95 06/30/20 10:00 30 H 06/30/20 08:00 98.8 F 30 H 87 L 06/30/20 07:24 92 06/30/20 04:00 98.8 F 30 H Weight Admit Weight 188 lb 6.632 oz Weight 235 lb 0.204 oz Most Recent Monitor Data Heart Rate from ECG 91 NIBP 96/53 NIBP BP-Mean 67 Respiration from ECG 5 SpO2 86 I&O: 06/29/20 06/30/20 07/01/20 06:59 06:59 06:59 Intake Total 3001.6 4419.3 60 Output Total 1225 1075 185 Balance 1776.6 3344.3 -125 Result Diagrams: 06/30/20 06:10 06/30/20 06:10 Additional Labs: Accuchecks 06/30/20 06/30/20 06/30/20 06:04 00:13 00:07 POC Glucose 313 H 354 H 368 H 06/29/20 16:07 POC Glucose 240 H Hospitalist ROS - Medication Medications: Active Medications Generic Name Dose Route Start Last Admin Trade Name Freq PRN Reason Stop Dose Admin Acetaminophen 650 mg 06/17/20 21:58 06/25/20 20:50 Acetaminophen 325 Mg Tab PO 650 mg Q4H PRN Administration Headache/Fever/Mild Pain (1-3) Acetaminophen 650 mg 06/17/20 21:58 06/28/20 00:26 Acetaminophen 650 Mg Suppository SC 650 mg Q4H PRN Administration Headache/Fever/Mild Pain (1-3) Acetaminophen 1,000 mg 06/29/20 14:54 06/29/20 16:21 Acetaminophen 650 Mg/20.3 Ml Udcup PER TUBE 1,000 mg Q6H PRN Administration TEMP > OR = 100.3 Amitriptyline HCl 50 mg 06/18/20 21:00 06/29/20 21:27 Amitriptyline Hcl 25 Mg Tab PO 50 mg HS RUSTY Administration Ascorbic Acid 1,000 mg 06/19/20 09:00 06/30/20 08:37 Ascorbic Acid 500 Mg Chewable Tablet PO 1,000 mg DAILY RUSTY Administration Atorvastatin Calcium 20 mg 06/19/20 09:00 06/30/20 08:36 Atorvastatin Calcium 20 Mg Tab PO 20 mg DAILY RUSTY Administration Calcium Carbonate 1,000 mg 06/19/20 21:00 06/30/20 08:36 Calcium Carbonate 500 Mg Chewtab PO 1,000 mg BID RUSTY Administration Dexamethasone 6 mg 06/21/20 21:00 06/30/20 08:37 Dexamethasone 4 Mg/Ml Vial SLOW IVP 6 mg BID RUSTY Administration Dextrose/Water 25 gm 06/17/20 22:19 06/29/20 00:17 Dextrose 50% Abboject 50 Ml Syringe SLOW IVP 25 gm PRN PRN Administration Hypoglycemia Enoxaparin Sodium 30 mg 06/18/20 09:00 06/30/20 08:36 Enoxaparin Sodium 30 Mg/0.3 Ml Syringe SC 30 mg 0900 RUSTY Administration Ergocalciferol 1.25 mg 06/26/20 09:00 06/28/20 08:27 Ergocalciferol 1.25 Mg(50,000 Units) Cap PO 1.25 mg Q7DAYS RUSTY Administration Gabapentin 300 mg 06/18/20 15:00 06/30/20 08:36 Gabapentin 300 Mg Cap PO 300 mg TID RUSTY Administration Dextrose/Water 1,000 mls @ 0 mls/hr 06/17/20 22:19 06/22/20 08:45 D5w IV 1,000 mls .Q0M PRN Administration Hypoglycemia As Directed Fentanyl Citrate 2,000 mcg/ 100 mls @ 0 mls/hr 06/24/20 06:30 06/29/20 13:55 Sodium Chloride IV 07/24/20 06:30 100 mls INF RUSTY Administration Protocol Per Protocol Piperacillin Sod/Tazobactam 100 mls @ 200 mls/hr 06/28/20 12:00 06/30/20 11:53 Sod 3.375 gm/ Sodium Chloride IVPB 100 mls Q6HR RUSTY Administration Norepinephrine Bitartrate 8 mg 250 mls @ 0 mls/hr 06/29/20 11:00 06/30/20 13:15 / Device IVPB 250 mls INF RUSTY Administration Protocol Titrate Potassium Chloride 40 meq/ 1,020 mls @ 50 mls/hr 06/29/20 17:45 06/29/20 19:45 Dextrose/Water IV 1,020 mls .[id number] RUSTY Administration Insulin Human Lispro 0 units 06/17/20 22:19 06/30/20 11:56 Humalog 300 Units/3 Ml Vial SC 6 unit .MODERATE SLIDING SC PRN Administration Moderate Correctional Scale Lorazepam 2 mg 06/24/20 06:30 06/30/20 11:53 Lorazepam 2 Mg/Ml Vial SLOW IVP 07/24/20 06:30 2 mg Q1H PRN Administration Breakthrough agitation Pantoprazole Sodium 40 mg 06/26/20 09:00 06/30/20 08:36 Pantoprazole 40 Mg Granules Packet PER TUBE 40 mg DAILY RUSTY Administration Polyethylene Glycol 17 gm 06/19/20 09:00 06/30/20 08:36 Polyethylene Glycol 3350 17 Gm Packet PO 17 gm DAILY RUSTY Administration Propofol 1,000 mg 06/24/20 06:30 06/29/20 09:01 Propofol 1,000 Mg/100 Ml Vial IV 07/24/20 06:30 1,000 mg INF PRN Administration TO ACHIEVE GOAL RASS Protocol Senna/Docusate Sodium 1 tab 06/18/20 21:00 06/30/20 08:36 Senokot S 8.6-50 Mg Tab PO 1 tab BID RUSTY Administration Sodium Chloride 10 ml 06/18/20 21:00 06/30/20 08:38 Flush - Normal Saline 10 Ml Syringe IVF 10 ml Q12HR RUSTY Administration Sotalol HCl 80 mg 06/18/20 21:00 06/26/20 09:00 Sotalol Hcl 80 Mg Tab PO Not Given BID RUSTY Tamsulosin HCl 0.4 mg 06/18/20 21:00 06/29/20 21:27 Tamsulosin Hcl 0.4 Mg Cap PO 0.4 mg HS RUSTY Administration Zinc Sulfate 220 mg 06/19/20 09:00 06/30/20 08:37 Zinc Sulfate 220 Mg Cap PO 220 mg DAILY RUSTY Administration - Exam General Appearance: ill appearing Eye: anicteric sclera ENT: no oropharyngeal lesions, moist mucosa Neck: supple, no JVD Heart: RRR, no murmur Respiratory: no wheezes, rales, rhonchi Gastrointestinal: soft, normal bowel sounds, distended Extremities: no cyanosis, 2+ LE edema Extremities - other findings: has beginning to have blisters on UE due to edema Neurological: cranial nerve grossly intact, no focal deficits Hosp A/P (1) Pneumonia due to COVID-19 virus Code(s): U07.1 - COVID-19; J12.82 - PNEUMONIA DUE TO CORONAVIRUS DISEASE 2018 Status: Acute (2) Acute respiratory failure with hypoxia Code(s): J96.01 - ACUTE RESPIRATORY FAILURE WITH HYPOXIA Status: Acute (3) DM type 2 (diabetes mellitus, type 2) Status: Chronic Qualifiers: Diabetes mellitus terminal gauger insulin use: with terminal gauger use (4) WILMAR (acute kidney injury) Code(s): N17.9 - ACUTE KIDNEY FAILURE, UNSPECIFIED Status: Acute (5) HLD (hyperlipidemia) Code(s): E78.5 - HYPERLIPIDEMIA, UNSPECIFIED Status: Chronic Qualifiers: Hyperlipidemia type: unspecified Qualified Code(s): E78.5 - Hyperlipidemia, unspecified (6) Obstructive uropathy Code(s): N13.9 - OBSTRUCTIVE AND REFLUX UROPATHY, UNSPECIFIED Status: Resolved (7) Blind in both eyes Code(s): H54.0 - BLINDNESS, BOTH EYES * DO NOT USE * Status: Chronic (8) Glaucoma Code(s): H40.9 - UNSPECIFIED GLAUCOMA Status: Chronic Qualifiers: Glaucoma type: unspecified (9) Hypertension Code(s): I10 - ESSENTIAL (PRIMARY) HYPERTENSION Status: Chronic Qualifiers: Hypertension type: essential hypertension Qualified Code(s): I10 - Essential (primary) hypertension (10) Hypoalbuminemia due to protein-calorie malnutrition Code(s): E88.09 - OTH DISORDERS OF PLASMA-PROTEIN METABOLISM, NEC; E46 - UNSPECIFIED PROTEIN-CALORIE MALNUTRITION Status: Acute (11) Physical deconditioning Code(s): R53.81 - OTHER MALAISE Status: Acute (12) Anasarca Code(s): R60.1 - GENERALIZED EDEMA Status: Acute (13) Hypocalcemia Code(s): E83.51 - HYPOCALCEMIA Status: Acute - Plan is maxed out on fio2 on vent, cxr shows small bulla in addition to infiltrates continue dexamethasone, albuterol inh, lantus, will hold all oral non life saving meds for now was intubated on 06/23/2020 is on zosyn and vanc for possible bacterial infection, repeat blood cs on 06/28 shows no growth, dulcolax suppository/enema, miralax, no bm yet. sbp around 106 with volume up, anasarca and is on levophed gave updates to his Mrs.[place]clean Mills over phone 06/27, 06/28 (discussed code status and she wants everything done for now), 06/30, is aware of very poor prognosis. d/w regarding lasix drip in view of low sbp and anasarca, may not tolerated HD, has albumin levels of less than 2 with third spacing. He is very unstable for going to the CT for abd distension (mostly edema but has not had bm in a long time), may do low intermittent suction of ng tube
[2020-06-30] MEDS ORDERED: Vancomycin 1 GM in Premix Bag 1 BAG IVPB SCH (15:45)
[2020-06-30] MEDS: Potassium Chloride 40 MEQ in Dextrose 5% in Water 1,000 ML IV SCH (16:10)
--- NOTE | 2020-06-30 17:00 | PRG ---
DATE OF SERVICE: 06/30/2020 SUBJECTIVE: Mr. Araujo remains mechanically ventilated. OBJECTIVE: VITAL SIGNS: Heart rates in the 90s. FiO2 is now up to 100%. Blood pressure is 96/53. LUNGS: Remarkable for coarse equal breath sounds. HEART: Regular rhythm. ABDOMEN: Soft. LABORATORY DATA: White count 16.4, hemoglobin 9.3, platelets 154. BUN is 84, creatinine 2.54. Intake and outputs positive, 3344. His admitting weight was reportedly 188 pounds. Scales are even close to accurate. He now weighs 235. IMPRESSION: 1. COVID pneumonia. 2. Volume overload. 3. Acute renal failure. 4. ?anaerobic pneumonia. He is not going to tolerate any more positive fluid balance and probably would benefit from volume removal with dialysis if that is the plan and path we are on. I will see him surviving much longer unless there is some volume removal. We successfully get him into a negative fluid balance. He is 11.5 L positive in last five days. Critical care time 30 min. Job ID: [id number] MTDD
[2020-06-30] MEDS ORDERED: Metolazone 5 MG TAB PO SCH (18:00)
--- NOTE | 2020-06-30 18:47 | PRG ---
DATE OF SERVICE: 06/30/2020 SUBJECTIVE: The patient was seen and examined, not doing very well. Noted with the following vital signs. OBJECTIVE: VITAL SIGNS: Blood pressure 104/52, FiO2 of 100 with a pulse of 90. HEENT: Remarkable for endotracheal tube in place. CARDIOVASCULAR SYSTEM: First and second heart sounds were heard. RESPIRATORY SYSTEM: Revealed vented sounds. DIGESTIVE SYSTEM: Revealed distended abdomen. EXTREMITIES: Show peripheral edema. SKIN: No new gross rash. LYMPHATICS: No peripheral lymphadenopathy. IMPRESSION: 1. Acute on chronic kidney disease. 2. Hypervolemia. 3. Respiratory failure in the context of #4. 4. COVID pneumonitis. 5. Severe hypocalcemia in the context of possible hypovitaminosis D and sepsis. PLAN: 1. The patient is currently on Lasix. . We will add Zaroxolyn to this patient's regimen. 2. If the patient does not respond to this medical diuresis and the family still wants everything to be done, indication for dialysis with emphasis on ultrafiltration as tolerated by hemodynamics. 3. Further management will be dependent on the clinical course. Condition of the patient at this time of dictation is very critical. Job ID: [id number]
[2020-06-30] MEDS: Propofol 1,000 MG/100 ML VIAL IV PRN (21:28)
[2020-06-30] MEDS: Tamsulosin HCl 0.4 MG CAP PO SCH (21:28)
[2020-07-01] MEDS ORDERED: Fentanyl CADD 100 ML ONE (01:04)
[2020-07-01 05:51] LABS: Anion Gap 17 mmol/L (10-20); BUN (Urea Nitrogen) 102 mg/dL (8.4-25.7); Calc. Creatinine Clearance 35 mL/min (70-130); Carbon Dioxide 27 mmol/L (22-29); Chloride 102 mmol/L (98-107); Glucose 424 mg/dL (70-105); Potassium 4.5 mmol/L (3.5-5.1); Sodium 141 mmol/L (136-145)
[2020-07-01 05:57] LABS: Calcium 5.9 mg/dL (7.8-10.44)
[2020-07-01 06:03] LABS: Band 13 % (5-11); Hemoglobin 8.5 g/dL (14.0-18.0); Hypochromia SLIGHT = 6-15 cells (100X) (0-5/hpf); Lymphocytes 2 % (21-51); MDiff Complete? YES; Mean Corpuscular HGB CONC 32.6 g/dL (32.0-36.0); Mean Corpuscular Hemoglobin 28.1 pg (27.0-31.0); Mean Corpuscular Volume 86.3 fL (78.0-98.0); Mean Platelet Volume 11.6 fL (7.4-10.4); Monocytes 16 % (0-10); Neutrophil 69 % (42-75); Platelet Count 157 thou/uL (130-400); Platelet Morphology Comment Appears Adequate; RBC Distribution Width 15.4 % (11.5-14.5); Red Blood Cell (RBC) Count 3.02 mill/uL (4.70-6.10); White Blood Cell (WBC) Count 18.2 thou/uL (4.8-10.8)
[2020-07-01] MEDS: Propofol 1,000 MG/100 ML VIAL IV PRN ×3 (06:05→21:47)
[2020-07-01] MEDS: Piperacillin/Tazobactam 3.375 GM in Sodium Chloride 0.9% 100 ML IVPB SCH (06:06)
[2020-07-01] MEDS: HumaLOG 300 UNITS/3 ML VIAL SC PRN ×3 (06:08→23:57)
--- NOTE | 2020-07-01 07:59 | RAD ---
XR Chest 1 View Portable History: Ventilated patient Comparison: Radiograph prior day Findings: Airspace opacities are similar. Bullous formation left lower lobe and lingula. AICD lead tip projects over the right ventricle. Endotracheal tube tip at the clavicular level. Enteric tube tip below diaphragm although out of field of view. Impression: Similar examination the chest without improved lung aeration.
[2020-07-01] MEDS ORDERED: Metolazone 5 MG TAB PO SCH (08:30)
[2020-07-01] MEDS: Pantoprazole 40 MG VIAL IVP SCH (08:45)
[2020-07-01] MEDS: Ergocalciferol 1.25 MG(50,000 UNITS) CAP PO SCH (08:47)
[2020-07-01] MEDS: Dexamethasone 4 mg/ml Vial SLOW IVP SCH ×2 (08:48→20:40)
[2020-07-01] MEDS: Calcium Carbonate 500 MG ChewTAB PO SCH ×3 (08:53→20:40)
[2020-07-01] MEDS ORDERED: Albumin 25% 25 GM/100 ML BOT IVPB SCH ×2 (09:10)
[2020-07-01] MEDS: Enoxaparin Sodium 30 MG/0.3 ML SYRINGE SC SCH (10:17)
[2020-07-01] MEDS ORDERED: HOLD VANCOMYCIN FOR LEVEL >20 FS SCH (11:00)
[2020-07-01] MEDS ORDERED: Vancomycin 1 GM in Premix Bag 1 BAG IVPB SCH (11:00)
[2020-07-01] MEDS ORDERED: Vancomycin 1.5 GRAM/300 ML BAG 1.5 GM in Premix Bag 1 BAG IVPB SCH (11:00)
[2020-07-01] MEDS ORDERED: Vancomycin HCl 750 MG in Sodium Chloride 0.9% 250 ML 250 ML IVPB SCH (11:00)
[2020-07-01] MEDS ORDERED: Vancomycin HCl 1.25 GM in Sodium Chloride 0.9% 250 ML 250 ML IVPB SCH (11:00)
[2020-07-01] MEDS ORDERED: Piperacillin/Tazobactam 3.375 GM in Sodium Chloride 0.9% 100 ML IVPB SCH (12:00)
[2020-07-01] MEDS ORDERED: Heparin 10,000 UNITS/ 10 ML VIAL ONE (13:11)
[2020-07-01 13:41] VITALS: BMI 29.6
[2020-07-01 13:58] LABS: HBSAB Concentration Less than 8.00 mIU/mL; HBSAg Index 0.22 S/CO (0-0.99); Hep B Surf AB Non-Reactive (NonReactive); Hep B Surf Ag Non-Reactive S/CO (NonReactive)
[2020-07-01 15:41] LABS: Vancomycin, Random 27.8 ug/mL (See Comment)
--- NOTE | 2020-07-01 15:52 | PDOC.HOSPP ---
- Subjective Encounter Date: 07/01/20 Encounter Time: 10:20 Subjective: is on vent, mild sedation, not in distress - Objective Vital Signs & Weight: Vital Signs (12 hours) Temp Pulse Resp 07/01/20 10:16 90 07/01/20 10:00 34 H 07/01/20 08:00 99.2 F 35 H 07/01/20 07:47 90 07/01/20 06:00 35 H 07/01/20 04:00 98.1 F 32 H Weight Admit Weight 188 lb 6.632 oz Weight 237 lb 3.478 oz Most Recent Monitor Data Heart Rate from ECG 90 NIBP 138/69 NIBP BP-Mean 92 Respiration from ECG 21 SpO2 92 I&O: 06/30/20 07/01/20 07/02/20 06:59 06:59 06:59 Intake Total 4419.3 2642.8 Output Total 1075 217 410 Balance 3344.3 2425.8 -410 Result Diagrams: 07/01/20 03:45 07/01/20 03:30 Additional Labs: Accuchecks 07/01/20 06/30/20 06/30/20 10:20 21:41 16:45 POC Glucose 369 H 319 H 366 H 06/30/20 10:08 POC Glucose 275 H Hospitalist ROS - Medication Medications: Active Medications Generic Name Dose Route Start Last Admin Trade Name Freq PRN Reason Stop Dose Admin Acetaminophen 650 mg 06/17/20 21:58 06/25/20 20:50 Acetaminophen 325 Mg Tab PO 650 mg Q4H PRN Administration Headache/Fever/Mild Pain (1-3) Acetaminophen 650 mg 06/17/20 21:58 06/28/20 00:26 Acetaminophen 650 Mg Suppository HI 650 mg Q4H PRN Administration Headache/Fever/Mild Pain (1-3) Acetaminophen 1,000 mg 06/29/20 14:54 06/29/20 16:21 Acetaminophen 650 Mg/20.3 Ml Udcup PER TUBE 1,000 mg Q6H PRN Administration TEMP > OR = 100.3 Albumin Human 25 gm 07/01/20 09:10 07/01/20 15:04 Albumin 25% 25 Gm/100 Ml Bot IVPB 07/01/20 23:59 25 gm WILLCALL RUSTY Administration Calcium Carbonate 2,000 mg 06/30/20 21:00 07/01/20 14:46 Calcium Carbonate 500 Mg Chewtab PO 2,000 mg TID RUSTY Administration Dexamethasone 6 mg 06/21/20 21:00 07/01/20 08:48 Dexamethasone 4 Mg/Ml Vial SLOW IVP 6 mg BID RUSTY Administration Dextrose/Water 25 gm 06/17/20 22:19 06/29/20 00:17 Dextrose 50% Abboject 50 Ml Syringe SLOW IVP 25 gm PRN PRN Administration Hypoglycemia Enoxaparin Sodium 30 mg 06/18/20 09:00 07/01/20 10:17 Enoxaparin Sodium 30 Mg/0.3 Ml Syringe SC 30 mg 0900 RUSTY Administration Ergocalciferol 1.25 mg 06/26/20 09:00 07/01/20 08:47 Ergocalciferol 1.25 Mg(50,000 Units) Cap PO 1.25 mg Q7DAYS RUSTY Administration Dextrose/Water 1,000 mls @ 0 mls/hr 06/17/20 22:19 06/22/20 08:45 D5w IV 1,000 mls .Q0M PRN Administration Hypoglycemia As Directed Norepinephrine Bitartrate 8 mg 250 mls @ 0 mls/hr 06/29/20 11:00 06/30/20 13:15 / Device IVPB 250 mls INF RUSTY Administration Protocol Titrate Insulin Human Lispro 0 units 06/17/20 22:19 07/01/20 06:08 Humalog 300 Units/3 Ml Vial SC 10 unit .MODERATE SLIDING SC PRN Administration Moderate Correctional Scale Lorazepam 2 mg 06/24/20 06:30 06/30/20 16:31 Lorazepam 2 Mg/Ml Vial SLOW IVP 07/24/20 06:30 2 mg Q1H PRN Administration Breakthrough agitation Pantoprazole Sodium 40 mg 07/01/20 09:00 07/01/20 08:45 Pantoprazole 40 Mg Vial IVP 40 mg DAILY RUSTY Administration Propofol 1,000 mg 06/24/20 06:30 07/01/20 10:59 Propofol 1,000 Mg/100 Ml Vial IV 07/24/20 06:30 1,000 mg INF PRN Administration TO ACHIEVE GOAL RASS Protocol Sodium Chloride 10 ml 06/18/20 21:00 07/01/20 08:49 Flush - Normal Saline 10 Ml Syringe IVF 10 ml Q12HR RUSTY Administration Sotalol HCl 80 mg 06/18/20 21:00 06/26/20 09:00 Sotalol Hcl 80 Mg Tab PO Not Given BID RUSTY Vecuronium [place] 10 mg 06/30/20 14:28 07/01/20 14:46 Vecuronium 10 Mg Vial IV 10 mg Q1H PRN Administration PARALYSIS - Exam General Appearance: ill appearing Eye: PERRL, anicteric sclera ENT: no oropharyngeal lesions, moist mucosa Neck: supple, no JVD Heart: RRR, no murmur Respiratory: no wheezes, rales, rhonchi Gastrointestinal: soft, non-tender, normal bowel sounds, distended Extremities: no cyanosis, 2+ LE edema Extremities - other findings: blistering of skin in UE due to edema Neurological: cranial nerve grossly intact, no focal deficits Hosp A/P (1) Pneumonia due to COVID-19 virus Code(s): U07.1 - COVID-19; J12.82 - PNEUMONIA DUE TO CORONAVIRUS DISEASE 2018 Status: Acute (2) Acute respiratory failure with hypoxia Code(s): J96.01 - ACUTE RESPIRATORY FAILURE WITH HYPOXIA Status: Acute (3) DM type 2 (diabetes mellitus, type 2) Status: Chronic Qualifiers: Diabetes mellitus senior living insulin use: with senior living use (4) WILMAR (acute kidney injury) Code(s): N17.9 - ACUTE KIDNEY FAILURE, UNSPECIFIED Status: Acute (5) HLD (hyperlipidemia) Code(s): E78.5 - HYPERLIPIDEMIA, UNSPECIFIED Status: Chronic Qualifiers: Hyperlipidemia type: unspecified Qualified Code(s): E78.5 - Hyperlipidemia, unspecified (6) Obstructive uropathy Code(s): N13.9 - OBSTRUCTIVE AND REFLUX UROPATHY, UNSPECIFIED Status: Resolved (7) Blind in both eyes Code(s): H54.0 - BLINDNESS, BOTH EYES * DO NOT USE * Status: Chronic (8) Glaucoma Code(s): H40.9 - UNSPECIFIED GLAUCOMA Status: Chronic Qualifiers: Glaucoma type: unspecified (9) Hypertension Code(s): I10 - ESSENTIAL (PRIMARY) HYPERTENSION Status: Chronic Qualifiers: Hypertension type: essential hypertension Qualified Code(s): I10 - Essential (primary) hypertension (10) Hypoalbuminemia due to protein-calorie malnutrition Code(s): E88.09 - OTH DISORDERS OF PLASMA-PROTEIN METABOLISM, NEC; E46 - UNSPECIFIED PROTEIN-CALORIE MALNUTRITION Status: Acute (11) Physical deconditioning Code(s): R53.81 - OTHER MALAISE Status: Acute (12) Anasarca Code(s): R60.1 - GENERALIZED EDEMA Status: Acute (13) Hypocalcemia Code(s): E83.51 - HYPOCALCEMIA Status: Acute - Plan is maxed out on fio2 on vent, cxr shows infiltrates, congestion. continue dexamethasone, albuterol inh, lantus, all oral non life saving meds are held. was intubated on 06/23/2020 is on zosyn and vanc for possible bacterial infection, repeat blood cs on 06/28 shows no growth, dulcolax suppository/enema, miralax, had large bm on 06/30 per staff. sbp around 106 with volume up, anasarca and is on levophed, has gained around 50lbs from admission. gave updates to his Mrs.[place]clean [place] over phone 06/27, 06/28 (discussed code status and she wants everything done for now), 06/30, is aware of very poor prognosis, 07/01 code status was revisited with she "wants everything done and [facility] will take him when he is ready" but also mentions that "she does not want him to suffer". Palliative care to talk to family reg very poor prognosis with multiple organ failures. d/w , pt will start HD from today with max vol removal as tolerated, has albumin levels of less than 2 with third spacing.
[2020-07-01] MEDS: Piperacillin/Tazobactam 2.25 GM in Sodium Chloride 0.9% 100 ML IVPB SCH (16:51)
[2020-07-01] MEDS: Fentanyl CADD 100 ML IV SCH (16:51)
--- NOTE | 2020-07-01 17:45 | PRG ---
DATE OF SERVICE: SUBJECTIVE: The patient is seen, still on life support. Noted with the following vital signs. OBJECTIVE: VITAL SIGNS: Afebrile, temperature 99, pulse 95, respiratory rate of 30, FiO2 of 100 with a blood pressure of 87/59. HEENT: Unremarkable except endotracheal tube in place. CARDIOVASCULAR SYSTEM: First and second heart sounds were heard. RESPIRATORY SYSTEM: Revealed vented sounds. DIGESTIVE SYSTEM: Revealed distended and tense abdomen. EXTREMITIES: Showed very tense peripheral edema. LABORATORY INVESTIGATION: Showed his creatinine does jump up to 3.56 with BUN of 102. CBC showed hemoglobin of 8.5[place] [address]. IMPRESSION: 1. Respiratory failure in the context #2. 2. COVID pneumonitis. 3. Acute on chronic kidney disease with worsening profound azotemia. 4. Hypervolemia. PLAN: 1. The patient has not responded to the diuretic regimen; therefore, we will discuss with the family and transition this patient over to hemodialysis with ultrafiltration emphasis. 2. Renally dose all medications. 3. Discontinue Flomax, discontinue Zaroxolyn, discontinue Lasix, and discontinue IV fluid. We will dialyze this patient with a high calcium bath. 4. Further management to be dependent on the clinical course. Job ID: [id number]
--- NOTE | 2020-07-01 21:18 | PRG ---
DATE OF SERVICE: 07/01/2020 OBJECTIVE: VITAL SIGNS: Sidney Duong's heart rate is 90, blood pressure is 111/69, respiratory rates per mechanical ventilation at 30, FiO2 this morning was 100%. Intake and output coming in today was positive another 2425. Weight was up 2 pounds at 237. Based on intake and output, the weight should have been up 4 pounds. LUNGS: Remarkable for equal breath sounds. HEART: Regular rhythm. ABDOMEN: Soft. LABORATORY DATA: White count is 18.2, hemoglobin 8.5, platelets 157. Electrolytes are normal. BUN 102 and creatinine 3.56. IMPRESSION: Respiratory failure associated with COVID pneumonia. Acute renal failure. The patient in my opinion needs dialysis. This was to be done this afternoon reportedly. PLAN: Continue supportive care. There are no more ventilator adjustments that can be made and he will need daily dialysis until his volume status improves. His weight on admission was reportedly 188. He weighs 237 now. I suspect given that he has been here for two weeks, he has lost at least a quarter of a pound of muscle mass a day, so I would think his weight would be less than 188 pounds reported on admission. Weights are not accurate for the first several days. It looks like first real weight that was done was 205 pounds and these are still bed scale weight which are notoriously inaccurate. Critical care time 30 min. Job ID: [id number] MTDD
[2020-07-01] MEDS ORDERED: Norepinephrine 8 MG/0.9% NS 250 ML IVPB SCH (21:45)
[2020-07-02] MEDS: Piperacillin/Tazobactam 2.25 GM in Sodium Chloride 0.9% 100 ML IVPB SCH ×3 (02:26→17:37)
[2020-07-02] MEDS: Propofol 1,000 MG/100 ML VIAL IV PRN ×2 (04:01→14:36)
[2020-07-02 05:01] LABS: Anion Gap 21 mmol/L (10-20); BUN (Urea Nitrogen) 110 mg/dL (8.4-25.7); Calc. Creatinine Clearance 28 mL/min (70-130); Carbon Dioxide 23 mmol/L (22-29); Chloride 102 mmol/L (98-107); Glucose 273 mg/dL (70-105); Potassium 4.8 mmol/L (3.5-5.1); Sodium 141 mmol/L (136-145)
[2020-07-02 05:07] LABS: Calcium 5.7 mg/dL (7.8-10.44)
[2020-07-02 05:23] LABS: Band 20 % (5-11); Hemoglobin 8.7 g/dL (14.0-18.0); Hypochromia SLIGHT = 6-15 cells (100X) (0-5/hpf); Lymphocytes 3 % (21-51); MDiff Complete? YES; Mean Corpuscular HGB CONC 32.6 g/dL (32.0-36.0); Mean Corpuscular Volume 85.8 fL (78.0-98.0); Mean Platelet Volume 11.5 fL (7.4-10.4); Monocytes 5 % (0-10); Neutrophil 72 % (42-75); Platelet Count 159 thou/uL (130-400); Platelet Morphology Comment Appears Adequate; RBC Distribution Width 15.6 % (11.5-14.5); Red Blood Cell (RBC) Count 3.11 mill/uL (4.70-6.10); White Blood Cell (WBC) Count 19.3 thou/uL (4.8-10.8)
[2020-07-02] MEDS ORDERED: Calcium Gluconate 4.6 MEQ in Sodium Chloride 0.9% 100 ML IVPB ONE (06:45)
--- NOTE | 2020-07-02 07:37 | OP ---
DATE OF PROCEDURE: 07/01/2020 MEDICATIONS: 1% lidocaine. PROCEDURE PERFORMED: Right femoral dialysis catheter placement with ultrasound. DESCRIPTION OF PROCEDURE: After informed consent was obtained, the patient was prepped and draped in a sterile fashion. The right femoral vein was approached in layers under real-time ultrasound guidance. After serial dilatation, a Trialysis catheter was secured and all the ports flushed well. No immediate postop complication and very insignificant blood loss. Line is ready for use. Job ID: [id number]
--- NOTE | 2020-07-02 08:40 | RAD ---
EXAM: Single view of the chest HISTORY: Ventilated patient with respiratory failure COMPARISON: 07/01/2020 FINDINGS: Single view of the chest shows an enlarged but stable cardiomediastinal silhouette. The li sonia and tubes are unchanged in position. The pacemaker is unchanged in position. Stable multifocal infiltrates are seen in the lungs. There is a stable area of lucency projecting over the left central lung. No acute osseous abnormality. IMPRESSION: Stable exam
[2020-07-02] MEDS: Dexamethasone 4 mg/ml Vial SLOW IVP SCH ×2 (09:15→20:33)
[2020-07-02] MEDS: Calcium Carbonate 500 MG ChewTAB PO SCH ×3 (09:15→20:33)
[2020-07-02] MEDS: Pantoprazole 40 MG VIAL IVP SCH (09:15)
[2020-07-02] MEDS: Enoxaparin Sodium 30 MG/0.3 ML SYRINGE SC SCH (09:15)
[2020-07-02] MEDS: Fentanyl CADD 100 ML IV SCH (09:50)
[2020-07-02] MEDS ORDERED: EPINEPHrine 1 MG/10 ML Abboject SYRINGE ONE ×2 (13:07→22:11)
[2020-07-02] MEDS ORDERED: Heparin 10,000 UNITS/ 10 ML VIAL ONE (13:09)
[2020-07-02] MEDS: HumaLOG 300 UNITS/3 ML VIAL SC PRN (14:24)
--- NOTE | 2020-07-02 15:56 | PDOC.HOSPP ---
- Subjective Encounter Date: 07/02/20 Encounter Time: 10:20 Subjective: is on vent, sedated getting HD now - Objective Vital Signs & Weight: Vital Signs (12 hours) Temp Pulse Resp Pulse Ox 07/02/20 14:58 94 07/02/20 14:00 30 H 07/02/20 12:00 98.4 F 30 H 07/02/20 11:37 90 07/02/20 10:00 30 H 07/02/20 08:34 92 07/02/20 08:00 98.8 F 30 H 86 L 07/02/20 04:00 98.9 F Weight Admit Weight 188 lb 6.632 oz Weight 3.82 oz Most Recent Monitor Data Heart Rate from ECG 95 NIBP 126/93 NIBP BP-Mean 104 Respiration from ECG 23 SpO2 87 I&O: 07/01/20 07/02/20 07/03/20 06:59 06:59 06:59 Intake Total 2642.8 2209.6 202.5 Output Total 217 425 25 Balance 2425.8 1784.6 177.5 Result Diagrams: 07/02/20 04:23 07/02/20 04:23 Additional Labs: Accuchecks 07/02/20 07/01/20 07/01/20 12:18 21:50 16:16 POC Glucose 227 H 232 H 267 H Hospitalist ROS - Medication Medications: Active Medications Generic Name Dose Route Start Last Admin Trade Name Freq PRN Reason Stop Dose Admin Acetaminophen 650 mg 06/17/20 21:58 06/25/20 20:50 Acetaminophen 325 Mg Tab PO 650 mg Q4H PRN Administration Headache/Fever/Mild Pain (1-3) Acetaminophen 650 mg 06/17/20 21:58 06/28/20 00:26 Acetaminophen 650 Mg Suppository [place] 650 mg Q4H PRN Administration Headache/Fever/Mild Pain (1-3) Acetaminophen 1,000 mg 06/29/20 14:54 06/29/20 16:21 Acetaminophen 650 Mg/20.3 Ml Udcup PER TUBE 1,000 mg Q6H PRN Administration TEMP > OR = 100.3 Calcium Carbonate 2,000 mg 06/30/20 21:00 07/02/20 14:26 Calcium Carbonate 500 Mg Chewtab PO 2,000 mg TID RUSTY Administration Dexamethasone 6 mg 06/21/20 21:00 07/02/20 09:15 Dexamethasone 4 Mg/Ml Vial SLOW IVP 6 mg BID RUSTY Administration Dextrose/Water 25 gm 06/17/20 22:19 06/29/20 00:17 Dextrose 50% Abboject 50 Ml Syringe SLOW IVP 25 gm PRN PRN Administration Hypoglycemia Enoxaparin Sodium 30 mg 06/18/20 09:00 07/02/20 09:15 Enoxaparin Sodium 30 Mg/0.3 Ml Syringe SC 30 mg 0900 RUSTY Administration Ergocalciferol 1.25 mg 06/26/20 09:00 07/01/20 08:47 Ergocalciferol 1.25 Mg(50,000 Units) Cap PO 1.25 mg Q7DAYS RUSTY Administration Dextrose/Water 1,000 mls @ 0 mls/hr 06/17/20 22:19 06/22/20 08:45 D5w IV 1,000 mls .Q0M PRN Administration Hypoglycemia As Directed Fentanyl 100 mls @ 0 mls/hr 06/30/20 16:00 07/02/20 09:50 Fentanyl Cadd IV 07/24/20 06:30 100 mls INF RUSTY Administration Protocol Per Protocol Piperacillin Sod/Tazobactam 100 mls @ 200 mls/hr 07/01/20 18:00 07/02/20 09:45 Sod 2.25 gm/ Sodium Chloride IVPB 100 mls 0200,1000,1800 RUSTY Administration Norepinephrine Bitartrate 250 mls @ 0 mls/hr 07/01/20 21:45 07/01/20 21:48 Levophed IVPB 250 mls INF RUSTY Administration Protocol Titrate Insulin Human Lispro 0 units 06/17/20 22:19 07/02/20 14:24 Humalog 300 Units/3 Ml Vial SC 4 unit .MODERATE SLIDING SC PRN Administration Moderate Correctional Scale Lorazepam 2 mg 06/24/20 06:30 06/30/20 16:31 Lorazepam 2 Mg/Ml Vial SLOW IVP 07/24/20 06:30 2 mg Q1H PRN Administration Breakthrough agitation Pantoprazole Sodium 40 mg 07/01/20 09:00 07/02/20 09:15 Pantoprazole 40 Mg Vial IVP 40 mg DAILY RUSTY Administration Propofol 1,000 mg 06/24/20 06:30 07/02/20 14:36 Propofol 1,000 Mg/100 Ml Vial IV 07/24/20 06:30 1,000 mg INF PRN Administration TO ACHIEVE GOAL RASS Protocol Sodium Chloride 10 ml 06/18/20 21:00 07/02/20 09:15 Flush - Normal Saline 10 Ml Syringe IVF 10 ml Q12HR RUSTY Administration Sotalol HCl 80 mg 06/18/20 21:00 06/26/20 09:00 Sotalol Hcl 80 Mg Tab PO Not Given BID RUSTY Vecuronium [place] 10 mg 06/30/20 14:28 07/01/20 14:46 Vecuronium 10 Mg Vial IV 10 mg Q1H PRN Administration PARALYSIS - Exam General Appearance: ill appearing Eye: PERRL, anicteric sclera ENT: no oropharyngeal lesions, moist mucosa Neck: supple, no JVD Heart: RRR, no murmur Respiratory: no wheezes, rales, rhonchi Gastrointestinal: soft, non-tender, normal bowel sounds, no guarding, no rigidity Extremities: no cyanosis, 2+ LE edema Neurological: cranial nerve grossly intact, no focal deficits Hosp A/P (1) Pneumonia due to COVID-19 virus Code(s): U07.1 - COVID-19; J12.82 - PNEUMONIA DUE TO CORONAVIRUS DISEASE 2019 Status: Acute (2) Acute respiratory failure with hypoxia Code(s): J96.01 - ACUTE RESPIRATORY FAILURE WITH HYPOXIA Status: Acute (3) DM type 2 (diabetes mellitus, type 2) Status: Chronic Qualifiers: Diabetes mellitus termite exterminator helper insulin use: with termite exterminator helper use (4) WILMAR (acute kidney injury) Code(s): N17.9 - ACUTE KIDNEY FAILURE, UNSPECIFIED Status: Acute (5) HLD (hyperlipidemia) Code(s): E78.5 - HYPERLIPIDEMIA, UNSPECIFIED Status: Chronic Qualifiers: Hyperlipidemia type: unspecified Qualified Code(s): E78.5 - Hyperlipidemia, unspecified (6) Obstructive uropathy Code(s): N13.9 - OBSTRUCTIVE AND REFLUX UROPATHY, UNSPECIFIED Status: Resolved (7) Blind in both eyes Code(s): H54.0 - BLINDNESS, BOTH EYES * DO NOT USE * Status: Chronic (8) Glaucoma Code(s): H40.9 - UNSPECIFIED GLAUCOMA Status: Chronic Qualifiers: Glaucoma type: unspecified (9) Hypertension Code(s): I10 - ESSENTIAL (PRIMARY) HYPERTENSION Status: Chronic Qualifiers: Hypertension type: essential hypertension Qualified Code(s): I10 - Essential (primary) hypertension (10) Hypoalbuminemia due to protein-calorie malnutrition Code(s): E88.09 - OTH DISORDERS OF PLASMA-PROTEIN METABOLISM, NEC; E46 - UNSPECIFIED PROTEIN-CALORIE MALNUTRITION Status: Acute (11) Physical deconditioning Code(s): R53.81 - OTHER MALAISE Status: Acute (12) Anasarca Code(s): R60.1 - GENERALIZED EDEMA Status: Acute (13) Hypocalcemia Code(s): E83.51 - HYPOCALCEMIA Status: Acute - Plan Had HD yesterday and is getting one now with target to remove around 3 lts, sbp holding up around 120's and with help from levophed. is maxed out on fio2 on vent, cxr shows infiltrates, congestion. continue dexamethasone, albuterol inh, lantus, all oral non life saving meds are held. was intubated on 06/23/2020 is on zosyn and vanc for possible bacterial infection, repeat blood cs on 06/28 shows no growth, dulcolax suppository/enema, miralax, had large bm on 06/30 per staff. sbp around 106 (off levophed) with volume up, anasarca and is on levophed, has gained around 50lbs from admission. gave updates to his Mrs.Mclean Mills over phone 06/27, 06/28 (discussed code status and she wants everything done for now), 06/30, is aware of very poor prognosis, 07/01 code status was revisited with she "wants everything done and [facility] will take him when he is ready" but also mentions that "she does not want him to suffer", Palliative care to talk to family reg very poor prognosis with multiple organ failures. is getting back to back HD with max fluid removal as tolerated. poor prognosis
--- NOTE | 2020-07-02 18:04 | PRG ---
DATE OF SERVICE: 07/02/2020 SUBJECTIVE: The patient was noted with the following vital signs. OBJECTIVE: VITAL SIGNS: Afebrile, temperature 98.9, blood pressure 107/75, FiO2 of 100. HEENT: Unremarkable. CARDIOVASCULAR SYSTEM: First and second heart sounds were heard. RESPIRATORY SYSTEM: Revealed vented sounds. DIGESTIVE SYSTEM: Revealed distended abdomen. EXTREMITIES: Show some peripheral edema. SKIN: No new gross rash. LYMPHATICS: No peripheral lymphadenopathy. IMPRESSION: 1. Gwnej-ly-updjjqx kidney disease with worsening azotemia as evidenced by BUN, it has gone up to 110. 2. Respiratory failure in the context of #3. 3. COVID pneumonitis. PLAN: 1. The patient to continue with daily hemodialysis with ultrafiltration as tolerated. Today, we will add a little bit of hemodialysis given the worsening azotemia in this patient. 2. Further management to be dependent on the clinical course. The condition of this patient is critical. Job ID: [id number]
--- NOTE | 2020-07-02 18:50 | PRG ---
DATE OF SERVICE: 07/02/2020 OBJECTIVE: VITAL SIGNS: Mr. Araujo's heart rate is in the 90s, blood pressure 131/83, respiratory rate is 30. LUNGS: Unchanged. HEART: Unchanged. ABDOMEN: Unchanged. LABORATORY DATA: White count 19.3, hemoglobin 8.7, platelets 159. Sodium 141, potassium 4.8, chloride 102, bicarb 23, BUN 110, creatinine 4.3. He is dialyzed again today. 3200 mL was removed. He is still on bilevel on 100% oxygen. IMPRESSION: COVID pneumonia with volume overload. He needs to be weighed every day. His admitting weight was reportedly 188 pounds. Last weight was yesterday, it was 237 pounds. We will continue to follow. He needs daily dialysis. Critical care time 30 min. Job ID: [id number] MTDD
[2020-07-02 19:03] VITALS: BP 135/79
[2020-07-02 20:58] VITALS: TEMP 98.7
[2020-07-02] MEDS ORDERED: Lidocaine 1% (PF) 30 ML VIAL ONE (22:05)
[2020-07-02] MEDS ORDERED: Sterile Water 10 ML ONE (22:06)
--- NOTE | 2020-07-02 22:07 | RAD ---
Portable frontal chest radiograph: 06/22/2020 COMPARISON: 06/22/2020 HISTORY: Shortness of breath FINDINGS: This study was performed at 9:48 PM and compared to the prior study performed at 3:33 AM. T here is a new moderate/large left-sided pneumothorax with significant volume loss involving the left lung. There is a stable endotracheal tube, nasogastric tube, and right-sided vascular catheter. The patient is rotated to the right. There is extensive airspace disease within the right lung most prominent in the mid and lower right lung zones. IMPRESSION: New left-sided pneumothorax. Lines and tubes as detailed above. Results were called to the covering ICU nurse, Devora, at 10:02 PM 07/02/2020. She reported that the [facility] heal[facility] nurse was relaying this information to Dr. Conner.
[2020-07-02] MEDS ORDERED: EPINEPHrine 1 MG/ML AMP ONE (22:11)
--- NOTE | 2020-07-02 22:52 | PRG ---
DATE OF SERVICE: 07/02/2020 HISTORY OF PRESENT ILLNESS: Mr. Duong had a decline in O2 sats this evening. I happened to appear to intubate another patient. Chest x-ray was done. Pneumothorax was seen. The nurse quickly set up with a Pleur-evac and a chest tube setting. When I walked into the room, he developed a wide-complex escape rhythm with no pulse. Chest compressions were started. He is given 1 mg epi with chest compressions and continued with ventilation. He never reestablished the rhythm with milligram of epi in the chest compressions. placing chest tube in this unfortunate gentleman, he has been on 100% oxygen for several days as this would lead to any chance of survival in this setting. The code was called, and he was pronounced. His was notified by me. She is trying to decide which home to send him to. She was very appreciative over the phone with care given to Mr. Duong. Job ID: [id number]
--- NOTE | 2020-07-03 11:47 | DIS ---
DATE OF ADMISSION: 06/18/2020 DATE OF DISCHARGE: 07/02/2020 SUMMARY DATE OF : 07/02/2020 at 2222. PRIMARY CAUSE OF : COVID-19 pneumonia, acute respiratory failure with hypoxia, both 15 days; acute renal failure, 7 days. SECONDARY CAUSE/CONTRIBUTING FACTORS TO : Anasarca, severe hypoalbuminemia, severe deconditioning, diabetes mellitus type 2, coronary artery disease. BRIEF COURSE DURING HOSPITALIZATION: Patient initially got admitted on June 17, 2020 with complaints of unable to pass urine. He had urinary retention. Initial workup revealed a temperature 102 degrees in the ER with patient being very poor historian to provide additional history on arrival. His COVID-19 PCR was positive and patient had pulmonary infiltrates. He was placed on steroids along with albuterol inhaler and empiric ceftriaxone was started due to obstructive uropathy. Mr. Araujo has had consultation with Dr. Jones for Urology and had a Castillo catheter placed. During the course of his stay, patient had a code blue on the June 24 due to increasing shortness of breath and desaturations and had to be intubated. Since then, patient remained on the ventilator with worsening renal function and pulmonary status. He has had consultation with Dr. Conner for Pulmonology and Dr. Gregg for Nephrology. Mr. Araujo had severe hypoalbuminemia with worsening renal function and volume overload. He failed medical intervention for resolving his volume overload and finally had to be started on hemodialysis on the . On the evening, patient started to desaturate and was found to have had a large pneumothorax on the left. Dr. Conner, educational program assistant, was at bedside and ACLS protocol was initiated. Despite all the above measures, patient failed to improve and was pronounced at 2222. He had been maxed out on ventilator with 100% FiO2 from the June 30. Patient also had foul smell emanating from his oral cavity and was switched over to broad- spectrum IV antibiotics from June 27. All through his stay, his , Ms. Mills was given complete updates. His body will be released to home per hospital protocol. Job ID: [id number] MTDD
--- NOTE | 2020-07-03 19:29 | PQF ---
CLINICAL DOCUMENTATION CLARIFICATION FORM: Dear : Mandie Grey Date / Time: 07/04/20 Please exercise your independent, professional judgment in responding to the clarification form. Clinical indicators are provided on the bottom of this form for your review Please check appropriate box(es): [ x ] Sepsis due to Covid Pneumonia [ ] Severe sepsis due to Covid Pneumonia with Acute Respiratory Failure [ ] Septic Shock [ ] Localized infection without sepsis [ ] Other diagnosis [ ] Unable to determine In addition, please specify: Present on Admission (POA): [ x] Yes [ ] No [ ] Unable to determine Physician Signature: Date/Time: For continuity of documentation, please document condition throughout progress notes and discharge summary. Thank You To be completed by CDI/Coding staff for physician review: Present Clinical Indicators - Signs / Symptoms / Labs Results and Location in Medical Record [x] WBC 6.7, Plt cound 150, Neutrophils 76.8, Band 15, Lactic acid 1.2 Laboratory 06/17 [x] WBC 15.7, Plt count 243, Neutrophils 79, Band Laboratory 06/24 [x] SARS Cov 2 Rap: Detected Serology 06/17 [x] Blood culture: No growth in 5 days Laboratory 06/17 [x] BP 117/66, Pulse 94, Resp 21, temp 103.5 Vital signs 06/17 [x] He does have a fever H&P p1 06/18 Dr Perez [x] Acute kidney failure H&P p3 06/18 Dr Perez [x] Acute respiratory failure due to Covid pneumonia HPN p5 06/20 Dr Iniguez [x] Severe hypocalcemia in context of possible hypovitaminosis D and Sepsis PN p1 Dr Mendez Present Risk Factors Results and Location in Medical Record [x] DM H&P p1 06/18 Dr Perez [x] HTN H&P p1 06/18 Dr Perez [x] Covid pneumonia HPN p5 06/20 Dr Iniguez Present Treatments Results and Location in Medical Record [x] IV Vancomycin 2 gm AUG 17 [x] IVF NS 1L AUG 28 [x] IV Remdesivir 200 mg AUG 17 [x] IV Zosyn 3.375 gm AUG 17 [x] IV Levophed 8 mg AUG 17 [x] IV Ceftrizxone 2 gm AUG 28 [x] Mechanical Ventilator Respiratory panel 06/24 [x] Respiratory Consult Consult Dr Conner 06/24 [x] Isolation Order 06/18 CDS/Silicator Signature: Maria Alejandra Lange Phone #: [phone] Date/Time: 07/03/20 This is a permanent part of the Medical Record [facility]
== END 2020-07-02 22:30 | disposition expired | DRG 870 ==
LOC: ERS 17:20 → T4-B 20:47 → OBSVTOIN 06-18 12:12 → IMCU/EMU 06-24 05:55
PROVIDERS: ADMIT Internal Medicine; ATTEND Internal Medicine
PROC: 8E0ZXY6 Isolation (ICD-10-PCS; 2020-06-18)
PROC: XW033E5 Introduction of Remdesivir Anti-infective into Peripheral Vein, Percutaneous Approach, New Technology Group 5 (ICD-10-PCS; principal; 2020-06-21)
PROC: 5A1955Z Respiratory Ventilation, Greater than 96 Consecutive Hours (ICD-10-PCS; 2020-06-24)
PROC: 0BH17EZ Insertion of Endotracheal Airway into Trachea, Via Natural or Artificial Opening (ICD-10-PCS; 2020-06-24)
PROC: 02HV33Z Insertion of Infusion Device into Superior Vena Cava, Percutaneous Approach (ICD-10-PCS; 2020-06-24)
PROC: 5A12012 Performance of Cardiac Output, Single, Manual (ICD-10-PCS; 2020-06-24)
PROC: 3E033XZ Introduction of Vasopressor into Peripheral Vein, Percutaneous Approach (ICD-10-PCS; 2020-06-24)
PROC: 5A1D70Z Performance of Urinary Filtration, Intermittent, Less than 6 Hours Per Day (ICD-10-PCS; 2020-07-01)
PROC: 06HY33Z Insertion of Infusion Device into Lower Vein, Percutaneous Approach (ICD-10-PCS; 2020-07-01)
PROC: 5A12012 Performance of Cardiac Output, Single, Manual (ICD-10-PCS; 2020-07-02)
DX: A41.89 Other specified sepsis (principal); J96.01 Acute respiratory failure with hypoxia; U07.1 COVID-19; J12.82 Pneumonia due to coronavirus disease 2019; N17.9 Acute kidney failure, unspecified; N13.8 Other obstructive and reflux uropathy; E87.2 Acidosis; I13.0 Hypertensive heart and chronic kidney disease with heart failure and stage 1 through stage 4 chronic kidney disease, or unspecified chronic kidney disease; E87.0 Hyperosmolality and hypernatremia; E46 Unspecified protein-calorie malnutrition; J93.9 Pneumothorax, unspecified; I25.10 Atherosclerotic heart disease of native coronary artery without angina pectoris; E78.5 Hyperlipidemia, unspecified; H54.8 Legal blindness, as defined in USA; H40.9 Unspecified glaucoma; N40.1 Benign prostatic hyperplasia with lower urinary tract symptoms; R33.8 Other retention of urine; T50.2X5A Adverse effect of carbonic-anhydrase inhibitors, benzothiadiazides and other diuretics, initial encounter; N18.9 Chronic kidney disease, unspecified; E11.22 Type 2 diabetes mellitus with diabetic chronic kidney disease; E87.6 Hypokalemia; E11.649 Type 2 diabetes mellitus with hypoglycemia without coma; T38.3X5A Adverse effect of insulin and oral hypoglycemic [antidiabetic] drugs, initial encounter; Z53.20 Procedure and treatment not carried out because of patient's decision for unspecified reasons; E55.9 Vitamin D deficiency, unspecified; I46.9 Cardiac arrest, cause unspecified; E88.09 Other disorders of plasma-protein metabolism, not elsewhere classified; E87.70 Fluid overload, unspecified; Z95.810 Presence of automatic (implantable) cardiac defibrillator; Z78.1 Physical restraint status; Z68.26 Body mass index [BMI] 26.0-26.9, adult; Z79.899 Other long term (current) drug therapy; Z79.4 Long term (current) use of insulin
CPT/HCPCS: 0240U; 36415; 36416; 36600; 51702; 70450; 71045; 76770; 80048; 80053; 80076; 80202; 81003; 82140; 82306; 82728; 82805; 83605; 83690; 83735; 84484; 85007; 85025; 85027; 86140; 86706; 86850; 86900; 86901; 87040; 87340; 87804; 90935; 92950; 94002; 94003; 96360; 96361; 96372; C9113; G0257; G0378; J0171; J0696; J1100; J1644; J1650; J1815; J1940; J2001; J2060; J2185; J2543; J2704; J3010; J3370; J3480; J3490; J7030; J7050; J7070; P9047